=== PATIENT | female | born 1980 | race Caucasian/White ===

== ENCOUNTER → 2017-05-06 08:58 | Outpatient (CLI) | payer OTHER, SELFPAY ==
--- NOTE | 2017-05-06 09:04 | MR_ITS ---
MR angio head wo con CLINICAL INDICATION: ITS.REASON: TEMPORAL ARTERITIS SYNDROME, headache with jaw pain, arteritis ORDERING PHYSICIAN: Kavon Deleon MD PATIENT AGE: 36 years COMPARISON: MRI of the brain 04/02/2009 TECHNIQUE: 3-D [id number] images are obtained with MIP reformats and single shot MRV FINDINGS: There is a persistent small area of protrusion involving the junction of the right A1 segment of the anterior cerebral artery with the anterior communicating artery seen on both the raw data images and the 3-D reformats. This measures approximately 2 mm. While this could be due to overlap of an adjacent vessel, one cannot exclude the possibility of a small aneurysm especially in this location. Would consider a CT angiogram of the intracranial vessels for confirmation. No other abnormalities are evident. No large aneurysms, AVMs, or major intracranial occlusive process is evident. No segmental occlusive changes. No beading seen of the intracranial arteries. No evidence of arteritis of the intracranial vessels. IMPRESSION: 1. Possible small aneurysm at the junction of the right A1 segment and anterior cerebral artery. Consider CT angiogram for further evaluation. 2. Otherwise negative MRA of the brain
== END ==
PROVIDERS: Family Provider Internal Medicine Adolescent Medicine; PCP Internal Medicine Adolescent Medicine; Visit Provider Internal Medicine Adolescent Medicine
DX: M31.6 Other giant cell arteritis (principal)
CPT/HCPCS: 70544

== ENCOUNTER → 2017-05-13 09:34 | Outpatient (CLI) | payer OTHER, SELFPAY ==
--- NOTE | 2017-05-13 09:39 | CT_ITS ---
CT angio head INDICATION: Severe temporal headaches with abnormal MRI, pulsatile tinnitus, evaluate for possible future routine artery aneurysm ITS.REASON: TEMPORAL HEADACHE,PULSATILE TINNITUS BOTH EARS, ABN.MRI ORDERING PHYSICIAN: Kavon Deleon MD PATIENT AGE: 36 years COMPARISON: MRI of 05/06/2017 TECHNIQUE: Axial images are obtained following the intravenous administration 100 mL's of Isovue-370 contrast. Sagittal and coronal reformatted images are reviewed as well. FINDINGS: On the previous MRI there was a question of a aneurysm at the junction of the A1 segment and anterior communicating artery on the right. There is no evidence of anterior communicating artery aneurysm. There is some mild looping of the anterior communicating artery resulting in the abnormal findings on MRI. No aneurysm, arteriovenous malformation, for major intracranial occlusive process is evident. No enhancing lesions are evident. IMPRESSION: Negative CT angiogram of the brain. No aneurysm apparent.
--- NOTE | 2017-05-13 10:39 | HMH.ITSHM ---
HUMIRA METHOTREXTE FLOCI ACEID ;URXETINE LIN DRAKE
[2017-05-13 11:16] LABS: Anion Gap 12.2 mEq/L (5-15); Blood Urea Nitrogen 7 mg/dL (7-18); Carbon Dioxide 26 mmol/L (21.0-32.0); Chloride 100 mmol/L (98-107); Creatinine,Serum 0.53 mg/dL (0.55-1.02); Estimated Glomerular Filt Rate 131 ml/min (>60); GFR (African American) 159 ML/MIN (>60); Glucose 80 mg/dL (74-106); Potassium 4.2 mmoL/L (3.5-5.1); Sodium 134 mmol/L (136-145)
[2017-05-13 14:05] LABS: Hemoglobin A1C 5.5 % (0.0-7.0)
== END ==
PROVIDERS: Family Provider Internal Medicine Adolescent Medicine; PCP Internal Medicine Adolescent Medicine; Visit Provider Internal Medicine Adolescent Medicine
DX: R51 Headache (principal); H93.A3 Pulsatile tinnitus, bilateral; R90.89 Other abnormal findings on diagnostic imaging of central nervous system
CPT/HCPCS: 36415; 70496; 80048; 83036; Q9967

== ENCOUNTER → 2017-08-01 08:13 | Outpatient (POV) | payer OTHER, SELFPAY | PROVIDERS: Family Provider Internal Medicine Adolescent Medicine; PCP Internal Medicine Adolescent Medicine; Visit Provider Physician Assistant | DX: Z00.00 Encounter for general adult medical examination without abnormal findings (principal) ==

== ENCOUNTER → 2017-10-31 08:03 | Outpatient (POV) | payer OTHER, SELFPAY | PROVIDERS: Visit Provider Physician Assistant | DX: Z00.00 Encounter for general adult medical examination without abnormal findings (principal) ==

== ENCOUNTER → 2018-01-16 13:23 | Outpatient (CLI) | payer OTHER, SELFPAY ==
--- NOTE | 2018-01-16 13:28 | XR_ITS ---
XR foot RT min 3V HISTORY: ITS.REASON: BILAT FOOT PAIN ORDERING PHYSICIAN: Kavon Deleon MD PATIENT AGE: 37 years COMPARISON: None FINDINGS: No fracture or dislocation. No lytic or blastic change. There is normal mineralization.. The joint spaces are well-preserved. No significant degenerative/arthritic changes. No erosive changes evident. Reflection deformity of the second digit IMPRESSION: Flexion deformity of the second toe otherwise negative right foot
--- NOTE | 2018-01-16 13:28 | XR_ITS ---
XR foot LT min 3V HISTORY: ITS.REASON: BILAT FOOT PAIN ORDERING PHYSICIAN: Kavon Deleon MD PATIENT AGE: 37 years COMPARISON: None FINDINGS: No fracture or dislocation. No lytic or blastic change. There is normal mineralization.. The joint spaces are well-preserved. No significant degenerative/arthritic changes. No erosive changes evident. Mild flexion of the second toe IMPRESSION: Mild flexion of the second toe otherwise negative left foot
== END ==
PROVIDERS: PCP Internal Medicine Adolescent Medicine; Visit Provider Internal Medicine Adolescent Medicine
DX: M79.672 Pain in left foot (principal); M79.671 Pain in right foot
CPT/HCPCS: 73630

== ENCOUNTER → 2018-02-24 08:55 | Outpatient (CLI) | payer OTHER, SELFPAY ==
--- NOTE | 2018-02-24 09:01 | CT_ITS ---
CT abdomen pelvis w con CLINICAL INDICATION: ITS.REASON: ENDOMETRIOSIS, RT SIDE ABD PAIN, FECAL URGENCY ORDERING PHYSICIAN: Kavon Deleon MD PATIENT AGE: 37 years COMPARISON: None TECHNIQUE: Axial images obtained with sagittal and coronal reformats. All CT scans at the facility use one or more dose reduction, viz: automated exposure control, ma/kV adjustment per patient size (including targeted exams where dose is matched to indication, i.e. head), or iterative reconstruction technique. PROCEDURE: Oral Contrast: Redicat IV Contrast: 75 mL Isovue-370. FINDINGS: Lung bases are clear. Prior cholecystectomy. The liver, spleen, adrenal glands, pancreas, and kidneys have an unremarkable appearance. There is prior appendectomy. No intestinal obstruction or free air is evident. The uterus is somewhat bulky especially toward the right. The endometrial stripe is not well-defined. There is a 2 cm right ovarian cyst.. No pelvic abscess or cul-de-sac fluid. No focal inflammatory change. There is a tiny umbilical hernia containing fat. No acute bony anomalies IMPRESSION: 1. No acute abdominal or pelvic findings. 2. 2 cm right ovarian cyst. 3. Uterus is somewhat bulky especially along its right aspect. Endometrial stripe is not well delineated. Consider pelvic ultrasound for more thorough evaluation of the uterus.
--- NOTE | 2018-02-24 09:42 | HMH.ITSHM ---
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 []MARLIN FLORESRA
== END ==
PROVIDERS: PCP Internal Medicine Adolescent Medicine; Visit Provider Internal Medicine Adolescent Medicine
DX: N80.9 Endometriosis, unspecified (principal); R10.9 Unspecified abdominal pain; R15.2 Fecal urgency
CPT/HCPCS: 74177; Q9967

== ENCOUNTER → 2018-03-14 13:22 | Outpatient (CLI) | payer OTHER, SELFPAY ==
--- NOTE | 2018-03-14 13:27 | US_ITS ---
US transvaginal HISTORY: ITS.REASON: ENDOMETRIOSIS, RT SIDED ABDOMINAL PAIN ORDERING PHYSICIAN: Kavon Deleon MD PATIENT AGE: 37 years Comparison: 02/24/2018 FINDINGS: The uterus is retroverted and measures 7.4 x 4.5 x 4.7 cm. Combined endometrial thickness is 6 mm. The uterine fundus is prominent but no definite uterine mass evident. Nabothian cyst at 9 mm. The left ovary is 3.5 x 1.8 cm containing multiple small follicles. The right ovary is 3.4 x 2.2 cm containing small follicles the largest of which is 1 cm. No cul-de-sac fluid evident. Bilateral ovarian blood flow. IMPRESSION: 1. Retroverted uterus with some fullness in the fundal region. Nonspecific 2. Small bilateral ovarian follicles. No dominant cyst evident
== END ==
PROVIDERS: PCP Internal Medicine Adolescent Medicine; Visit Provider Internal Medicine Adolescent Medicine
DX: R10.31 Right lower quadrant pain (principal); N80.9 Endometriosis, unspecified
CPT/HCPCS: 76830

== ENCOUNTER → 2018-09-12 08:06 | Outpatient (CLI) | payer OTHER, SELFPAY ==
--- NOTE | 2018-09-12 08:11 | XR_ITS ---
XR ankle wt bearing LT min 3V HISTORY: ITS.REASON: pain ORDERING PHYSICIAN: Tova Mckeon DPM PATIENT AGE: 38 years Comparison: None FINDINGS: No fracture or dislocation. No lytic or blastic change. There is normal mineralization.. The joint spaces are well-preserved. No significant degenerative/arthritic changes. No erosive changes evident. IMPRESSION: Negative ankle, no acute finding
--- NOTE | 2018-09-12 08:11 | XR_ITS ---
XR ankle wt bearing RT min 3V HISTORY: ITS.REASON: pain ORDERING PHYSICIAN: Tova Mckeon DPM PATIENT AGE: 38 years Comparison: None FINDINGS: No fracture or dislocation. No lytic or blastic change. There is normal mineralization.. The joint spaces are well-preserved. No significant degenerative/arthritic changes. No erosive changes evident. IMPRESSION: Negative ankle, no acute finding
== END ==
PROVIDERS: PCP Internal Medicine Adolescent Medicine; Visit Provider Podiatrist
DX: M19.071 Primary osteoarthritis, right ankle and foot (principal); M19.072 Primary osteoarthritis, left ankle and foot
CPT/HCPCS: 73610

== ENCOUNTER → 2020-01-29 08:15 | Outpatient (CLI) | payer OTHER, SELFPAY ==
--- NOTE | 2020-01-29 08:24 | XR_ITS ---
PROCEDURE: XR ELBOW LT MIN 3V CLINICAL INDICATION: LT ELBOW PAIN COMPARISON: No exams were available for comparison FINDINGS: No acute fracture or dislocation. There are at least 3 calcific densities along the lateral aspect of the elbow proximal to the radial head at the level of the elbow joint consistent with loose bodies. Mild osteoarthritic changes are present at the elbow joint. No displaced fat pad. IMPRESSION: Mild osteoarthritis with loose bodies along the lateral aspect of the elbow joint. Dictated by: David Mensah MD 01/29/2020 12:38 David Mensah MD in [facility] 01/29/2020 12:38
== END ==
PROVIDERS: PCP Internal Medicine Adolescent Medicine; Visit Provider Internal Medicine Adolescent Medicine
DX: M25.522 Pain in left elbow (principal)
CPT/HCPCS: 73080

== ENCOUNTER → 2020-03-14 09:26 | Outpatient (CLI) | payer OTHER, SELFPAY ==
--- NOTE | 2020-03-14 09:31 | US_ITS ---
PROCEDURE: US TRANSVAGINAL CLINICAL INDICATION: PELVIC PAIN COMPARISON: US TRANVAG US transvaginal from 03/14/2018 FINDINGS: The uterus is retroverted measuring 8x 5 x 6 cm with a combined endometrial thickness of 5 mm. There is an area of increased echogenicity along the anterior aspect of the uterus and may be due to a scar. Nabothian cysts noted. The left ovary is 3.3 x 2.3 cm containing small follicles with blood flow noted. The right ovary is 4.7 x 3.5 cm containing a dominant cyst at 2.6 cm with a central septation. There are small follicles also in the right ovary. Blood flow is present. IMPRESSION: Retroverted uterus. 2.6 cm septated right ovarian cyst. Consider follow-up to confirm. Resolution or stability Dictated by: David Mensah MD 03/14/2020 16:00 David Mensah MD in [facility] 03/14/2020 16:00
== END ==
PROVIDERS: PCP Internal Medicine Adolescent Medicine; Visit Provider Nurse Practitioner Family
DX: R10.2 Pelvic and perineal pain (principal)
CPT/HCPCS: 76830

== ENCOUNTER → 2020-03-24 13:25 | Outpatient (CLI) | payer OTHER, SELFPAY ==
[2020-03-24 16:48] LABS: Adenovirus,PCR Not Detected (NotDetected); Bordetella Pertussis Not Detected (NotDetected); Chlamydophila Pneumoniae, PCR Not Detected (NotDetected); Coronavirus 19, PCR Not Detected (NotDetected); Coronavirus 229E Not Detected (NotDetected); Coronavirus NL63 Not Detected (NotDetected); Coronavirus OC43 Not Detected (NotDetected); Coronovirus HKU1,PCR Not Detected (NotDetected); Human Metapneumovirus Not Detected (NotDetected); Influenza A, PCR Not Detected (NotDetected); Influenza AH1, 2009 Not Detected (NotDetected); Influenza AH1, PCR Not Detected (NotDetected); Influenza AH3,PCR Not Detected (NotDetected); Influenza B, PCR Not Detected (NotDetected); Mycoplasma Pneumoniae, PCR Not Detected (NotDetected); Parainfluenza 1, PCR Not Detected (NotDetected); Parainfluenza 2, PCR Not Detected (NotDetected); Parainfluenza 3, PCR Not Detected (NotDetected); Parainfluenza 4, PCR Not Detected (NotDetected); Respiratory Syncytial Virus Not Detected (NotDetected); Rhinovirus/Enterovirus Not Detected (NotDetected)
== END ==
PROVIDERS: PCP Internal Medicine Adolescent Medicine; Visit Provider Internal Medicine Adolescent Medicine
DX: Z01.818 Encounter for other preprocedural examination (principal); Z03.818 Encounter for observation for suspected exposure to other biological agents ruled out
CPT/HCPCS: 87581; 87633; 87798

== ENCOUNTER 2020-06-06 08:00 | Outpatient (RCR) | payer OTHER, SELFPAY ==
--- NOTE | 2020-05-14 08:58 | HMH.OTOPEV ---
OT Inpatient Evaluation Rehab OT Outpatient Eval Start: 05/14/20 08:08 Freq: Status: Active Protocol: Document 05/14/20 08:44 [facility]ALL (Rec: 05/14/20 08:58 [id number] Electronically Signed By Kiana Pires OT 05/14/20 08:44 Outpatient Therapy Subjective History Subjective History Pt is a 39 year old female who reports to therapy for initial evaluation to Left elbow. Pt had scope completed on 03/27/20 to left elbow. Pt has past medical history of juvenile arthritis and Maritza -Danols Syndrome. Pt reports continued pain for the past 6 months at L elbow (dominant side). She also c/o her elbow feeling locked at times. After scope, surgeon confirmed minimal cartilage in elbow along with fraying of several ligaments. Pt reports most symptoms have improved since debridement of elbow. Pt does demonstrate with decreased strength at L elbow, but overall normal active range of motion. Pt will continue to be seen twice a week to address all deficits. Chief Complaint Pain,Weakness Symptom Type Ache,Throb,Dull Symptoms Relieved By Rest/Positioning Symptoms Aggravated By Physical Activity,Lifting Prior Functional Limitations None Current Functional Limitations Reaching,Lifting,Housework, Recreation Activity Symptom Description Constant but Variable Level of pain today (0-10) 3 Pain scale - at its best (0-10) 1 Pain scale - at its worst (0-10) 10 Shoulder/Elbow Eval Shoulder Objective Measurements Elbow Objective Measurements Elbow ROM Left Elbow Extension Active Range of Motion ( 0 degrees degrees) Elbow Flexion Active Range of Motion ( 138 degrees degrees) Elbow Pronation of Forearm Range of 90 degrees Motion (degrees) Elbow Supination of Forearm Range of 90 degrees Motion (degrees) Elbow MMT Elbow Flexion Strength Grade 4- Good- Elbow Extension Strength Grade 4- Good- Wrist/Hand Eval Wrist Manual Muscle Testing Left Forearm Supination Strength Grade 4- Good- Forearm Pronation Strength Grade 4- Good- Automatic Transmission Mechanic/Pinch Strength R
== END 2020-06-06 08:05 | disposition home or self-care (01) ==
LOC: OT 08:00
PROVIDERS: PCP Internal Medicine Adolescent Medicine; Visit Provider Internal Medicine Adolescent Medicine
DX: Q79.60 Ehlers-Danlos syndrome, unspecified (principal)
CPT/HCPCS: 97014; 97110; 97166; G0283

== ENCOUNTER → 2020-07-03 17:49 | Outpatient (CLI) | payer OTHER, SELFPAY ==
[2020-07-03 18:01] LABS: Basophils % 0.4 % (0.1-2.0); Eosinophils # 0.1 K/mm3 (0.0-0.4); Eosinophils % 0.5 % (0.1-12.0); Hematocrit 36.2 % (37.0-47.0); Lymphocytes # 1.8 K/mm3 (0.7-4.5); Lymphocytes % 18.6 % (10-50); Mean Corpuscular HGB Conc 33.1 g/dL (31.8-35.4); Mean Corpuscular Hemoglobin 32.1 pg (27.0-31.2); Mean Corpuscular Volume 96.7 fl (81-99); Mean Platelet Volume 7.4 fl (7.4-10.4); Monocytes # 0.7 K/mm3 (0.1-1.0); Monocytes % 7.4 % (1.7-9.3); Neutrophils # 7.2 K/mm3 (1.8-7.8); Platelet Count 291 K/mm3 (142-424); Red Blood Count 3.74 M/mm3 (4.20-5.40); Red Cell Distribution Width 13.1 % (11.5-17.5); White Blood Count 9.9 K/mm3 (4.8-10.8)
[2020-07-03 18:35] LABS: Erythrocyte Sedimentation Rate 14 mm/hr (0-20)
[2020-07-03 18:44] LABS: Alanine Aminotransferase 14 U/L (12-78); Albumin Level 4.8 g/dl (3.5-5.0); Albumin/Globulin Ratio 1.7 (1.1-1.8); Alkaline Phosphatase 43 U/L (38-126); Aspartate Amino Transferase 24 U/L (14-36); Bilirubin,Total 0.2 mg/dl (0.2-1.3); Blood Urea Nitrogen 10 mg/dl (7-17); Calcium 9.9 mg/dl (8.4-10.2); Carbon Dioxide 26 mmol/L (22.0-30.0); Chloride 104 mmol/L (98-107); Estimated Glomerular Filt Rate 94 ml/min (>60); GFR (African American) 113 ML/MIN (>60); Globulin 2.8 g/dL (1.3-3.2); Glucose 94 mg/dl (74-100); Sodium 138 mmol/L (136-145); Total Protein,Serum 7.6 g/dl (6.3-8.2)
[2020-07-03 18:55] LABS: C-Reactive Protein < 0.3 mg/L (0-4)
[2020-07-03 19:01] LABS: 25-OH Vitamin D, Total 17.3 ng/mL (30-100)
[2020-07-03 19:34] LABS: Vitamin B12 737 pg/mL (239-931)
== END ==
PROVIDERS: Visit Provider Internal Medicine Adolescent Medicine
DX: M05.79 Rheumatoid arthritis with rheumatoid factor of multiple sites without organ or systems involvement (principal); R20.2 Paresthesia of skin; E55.9 Vitamin D deficiency, unspecified
CPT/HCPCS: 36415; 80053; 82306; 82607; 85025; 85651; 86140

== ENCOUNTER → 2020-07-04 14:00 | Outpatient (CLI) | payer OTHER, SELFPAY ==
--- NOTE | 2020-07-04 14:03 | US_ITS ---
PROCEDURE: US TRANSVAGINAL CLINICAL INDICATION: PELVIC PAIN COMPARISON: US US TRANSVAGINAL from 03/14/2020 FINDINGS: The uterus is retroverted. Nabothian cysts are present. There are 2 small cysts within the uterus at 5 mm and 4 mm. A 5 mm cyst is anterior to the mid aspect Of the endometrial stripe in the 4 mm cyst is in the lower uterine segment region. The previously noted 2.6 cm septated ovarian cyst on the right has resolved. There are small bilateral ovarian follicles UTERUS: 8cm x 5cmx 4cm with a combined endometrial thickness of 6.1mm LEFT OVARY: [id number] with a volume of 15.7ml. RIGHT OVARY: [id number] with a volume of 8.7ml. IMPRESSION: Retroflexed uterus with 2 small cyst within the uterus Resolved septated right ovarian cyst Dictated by: David Mensah MD 07/04/2020 17:06 David Mensah MD in [facility] 07/04/2020 17:06
== END ==
PROVIDERS: PCP Internal Medicine Adolescent Medicine; Visit Provider Nurse Practitioner Family
DX: R10.2 Pelvic and perineal pain (principal)
CPT/HCPCS: 76830

== ENCOUNTER 2020-07-14 06:52 | Observation (INO) | payer OTHER, SELFPAY ==
[2020-07-14] VITALS (37 sets, daily range): BP systolic 87–135; BP diastolic 60–85; PULSE 75–120; RESP 12–18; TEMP 6.1–43; O2SAT 96–100; BMI 19.2; BMI 20.5
--- NOTE | 2020-07-14 06:55 | ECG_ITS ---
APPROVED REPORT Exam: Resting ECG HR:93 bpm ECG Measurements Heart Rate 93 AXES VT 142 P 71 QRSd 70 QRS 59 QT 344 T 54 QTc 427 Conclusion Normal sinus rhythm Normal ECG Electronically signed by : Kavon Deleon, 07/14/2020 20:53:51
--- NOTE | 2020-07-14 07:03 | CT_ITS ---
PROCEDURE: CT CERVICAL SPINE WO CON CLINICAL INDICATION: syncope with fall COMPARISON: No exams were available for comparison TECHNIQUE: Axial images obtained with sagittal and coronal reformats. All CT scans at the facility use one or more dose reduction, viz: automated exposure control, ma/kV adjustment per patient size (including targeted exams where dose is matched to indication, i.e. head), or iterative reconstruction technique. Axial spiral CT scanning performed of the cervical spine beginning at the base of the skull and continuing to the upper T-spine. 3-D multiplanar reconstruction with 3-D manipulation of volumetric data set in image rendering was completed by the radiologist and/or technologist with the supervision of the radiologist on independent workstation. FINDINGS: Reversal of the cervical spine curvature is noted which may be secondary to muscle spasm. The vertebral body heights and alignment are otherwise unremarkable. The facet joint alignment is within normal limits. No acute fractures or traumatic subluxation. The prevertebral soft tissues and visualized lung apices are clear. IMPRESSION: No acute fractures or traumatic subluxation. Dictated by: Celeste Logan 07/14/2020 09:01 Celeste Logan in [facility] 07/14/2020 09:01
--- NOTE | 2020-07-14 07:03 | XR_ITS ---
PROCEDURE: XR CHEST PORTABLE CLINICAL HISTORY: syncope with fall COMPARISON: CR CXR CHEST(2 VIEWS-NOT PORTABLE) from 08/31/2012 CR CXR CHEST(2 VIEWS-NOT PORTABLE) from 11/21/2012 CR CXR CHEST(2 VIEWS-NOT PORTABLE) from 07/31/[address] CHEST W/WO CONTRAST from 08/13/2015 FINDINGS: The cardiomediastinal silhouette and pulmonary vascularity are within normal limits. The lungs are clear without infiltrates, suspicious nodules, or pleural effusions. No acute bony abnormalities. IMPRESSION: No acute findings. Dictated by: Celeste Logan 07/14/2020 08:28 Celeste Logan in [facility] 07/14/2020 08:28
--- NOTE | 2020-07-14 07:03 | CT_ITS ---
PROCEDURE: CT HEAD/BRAIN WO CON CLINICAL INDICATION: syncope with fall COMPARISON: May 13, 2017 TECHNIQUE: Axial images obtained. All CT scans at the facility use one or more dose reduction, viz: automated exposure control, ma/kV adjustment per patient size (including targeted exams where dose is matched to indication, i.e. head), or iterative reconstruction technique. FINDINGS: No intra or extra-axial hemorrhage, space occupying lesion or acute infarct. The ventricles are normal in size, shape and symmetry. The hauser-white matter differentiation is within normal limits. No midline shift or mass effect. Brain parenchymal volume is appropriate for the age of the patient. The osseous structures are unremarkable. Visualized paranasal sinuses and mastoid air cells are clear. IMPRESSION: No acute intracranial finding Dictated by: Celeste Logan 07/14/2020 08:57 Celeste Logan in [facility] 07/14/2020 08:57
--- NOTE | 2020-07-14 07:03 | XR_ITS ---
PROCEDURE: XR PELVIS 1-2V CLINICAL INDICATION: syncope with fall COMPARISON: No exams were available for comparison TECHNIQUE: XR Pelvis AP View FINDINGS: No fracture or dislocation is evident. No significant degenerative change. No lytic or blastic lesions. Contrast is noted in the bladder, likely secondary to recent IV contrast administration. IMPRESSION: No acute findings. Dictated by: Celeste Logan 07/14/2020 08:27 Celeste Logan in [facility] 07/14/2020 08:27
--- NOTE | 2020-07-14 07:07 | CT_ITS ---
PROCEDURE: CT ABDOMEN PELVIS W CON CLINICAL INDICATION: abd pain COMPARISON: CT ABDPELW CT abdomen pelvis w con from 02/24/2018 US US TRANSVAGINAL from 07/04/2020 TECHNIQUE: IV Contrast: 75ML Isovue 370 Oral Contrast None Axial images obtained with sagittal and coronal reformats. All CT scans at the facility use one or more dose reduction, viz: automated exposure control, ma/kV adjustment per patient size (including targeted exams where dose is matched to indication, i.e. head), or iterative reconstruction technique. FINDINGS: LOWER THORAX: Minor bibasilar atelectasis noted. Calcified granuloma in the left lower lobe. ABDOMEN & PELVIS: The liver is unremarkable. The gallbladder is surgically absent. No intra or extrahepatic biliary dilation. The pancreas, kidneys, adrenal glands and spleen are unremarkable. Few minor calcifications noted in the spleen, likely secondary to prior granulomatous disease. No evidence of hydronephrosis or hydroureter. The large and small bowel loops are under distended and demonstrates no evidence of focal wall thickening, obstruction or adjacent inflammatory changes. No significant retroperitoneal or mesenteric lymphadenopathy. The visualized abdominal aorta and its branches are unremarkable. There is evidence of hemoperitoneum. The uterus demonstrates heterogeneous density appears mildly enlarged. There is increased vasculature in the left adnexa adjacent to the left ovary. There is apparent contrast extravasation in the left adnexa adjacent to the left ovary. The right adnexa and the right appear ovary appears unremarkable within the limitations of the study. Hyperdense fluid is noted within the pelvis. IMPRESSION: Solid and cystic left adnexal lesion, demonstrates increased adjacent tortuous vessels with possible contrast extravasation. Hyperdense fluid noted in the abdomen and pelvis. Active hemorrhage in the left adnexa secondary to ovarian cystic mass like lesion versus ectopic is suspected. Correlation with the beta hCG is recommended. Moderate hemoperitoneum. Status post cholecystectomy. Dictated by: Celeste Logan 07/14/2020 08:52 Celeste Logan in [facility] 07/14/2020 08:52
[2020-07-14 07:23] LABS: Urine Pregnancy, HCG Qual. Negative (Negative)
--- NOTE | 2020-07-14 07:28 | HMH.EDNVD ---
ED Disposition Clinical Impression: Intra abdominal hemorrhage, Pelvic hematoma, Hemoperitoneum Disposition: Admitted As Inpatient Condition on Discharge: Serious Instructions: DI for Syncope in Adults (Fainting), DI for Syncope in Children (Fainting) Referrals: Kavon Deleon MD [Primary Care Provider] - - Critical Care Critical Care Time: Yes Attestation: On 07/14/20, the high probability of a clinically significant, sudden or life threatening deterioration of the following system(s) required my full and direct attention, intervention and personal management. The time I documented below is in addition to time spent performing reported procedures but includes the following listed in this critical care notation. Total Critical Care Time: 60 Vital system(s) involved:: Shock (Hemorrhage) My critical care processes included: Assessment & monitoring of V/S, Initial and Re-exams, Data Review/Interpretation, Medication Orders and management, Documentation Medical Decision Making - Medical Records Medical records reviewed: Yes: I reviewed the patient's medical records. - Steven Inquiry Pt receiving controlled substance: No Vital Signs: 07/14/20 06:52 07/14/20 07:12 07/14/20 07:30 Temperature 98.3 F Temperature Source Oral Pulse Rate 110 H 103 H Pulse Rate [Right Radial] 101 H Respiratory Rate 14 Blood Pressure 135/75 101/75 L Blood Pressure [Right Arm] 115/78 Blood Pressure Mean 84 Blood Pressure Mean [Right Arm] 90 Blood Pressure Source [Right Arm] Automatic Cuff Blood Pressure Position [Right Arm] Supine 02 Sat by Pulse Oximetry 100 100 100 Oxygen Delivery Method Room Air 07/14/20 08:00 07/14/20 08:05 Temperature Temperature Source Pulse Rate 116 H 116 H Pulse Rate [Right Radial] Respiratory Rate Blood Pressure 122/85 120/64 Blood Pressure [Right Arm] Blood Pressure Mean 92 82 Blood Pressure Mean [Right Arm] Blood Pressure Source [Right Arm] Blood Pressure Position [Right Arm] 02 Sat by Pulse Oximetry 100 100 Oxygen Delivery Method - Lab Data Lab results reviewed: Yes: I reviewed the patient's lab results. Lab Results 07/14/20 06:40: WBC 21.4 H*, RBC 3.56 L, Hgb 11.8 L, Hct 34.3 L, MCV 96.4, MCH 33.1 H, MCHC 34.3, RDW 13.2, Plt Count 280, MPV 8.3, Neut % (Auto) 81.9 H, Lymph % (Auto) 12.3, Jackson % (Auto) 5.2, Eos % (Auto) 0.4, Baso % (Auto) 0.3, Neut # (Auto) 17.5 H, Lymph # (Auto) 2.6, Jackson # (Auto) 1.1 H, Eos # (Auto) 0.1, Baso # (Auto) 0.1, Total Counted 100, Neutrophils % (Manual) 80 H, Lymphocytes % (Manual) 14, Monocytes % (Manual) 6, Platelet Estimate Normal, RBC Morphology Normal 07/14/20 06:40: Sodium 135 L, Potassium 3.9, Chloride 108 H, Carbon Dioxide 20 L, Anion Gap 10.9, BUN 15, Creatinine 0.70, Estimated Creat Clear 87, Estimated GFR 94, Est GFR ( Amer) 113, Glucose 135 H, Calcium 8.8, Total Bilirubin 0.4, Direct Bilirubin 0.1, Conjugated Bilirubin 0.0, Indirect Bilirubin 0.3, Unconjugated Bilirubin 0.3, AST 23, ALT 12, Alkaline Phosphatase 37 L, Troponin I < 0.01, Total Protein 6.4, Albumin 4.0, Amylase 80, Lipase 168, TSH 3.44, Thyroxine (T4) 6.6 07/14/20 06:40: Serum HCG, Qual Negative 07/14/20 06:58: Lactate 1.5 07/14/20 07:13: Urine Color Yellow, Urine Appearance Clear, Urine pH 6.0, Ur Specific [place] 1.025, Urine Protein Negative, Urine Glucose (UA) Negative, Urine Ketones Negative, Urine Blood Negative, Urine Nitrate Negative, Urine Bilirubin Negative, Urine Urobilinogen 0.2, Ur Leukocyte Esterase Negative, Urine RBC None, Urine WBC 3-5, Ur Squamous Epith Cells 3-5, Urine Bacteria None 07/14/20 07:13: Urine HCG, Qual Negative Result diagrams: 07/14/20 06:40 07/14/20 06:40 Orders (Tests/Meds): ED MEDICATIONS Generic Name Dose Route Start Last Admin Trade Name Freq PRN Reason Stop Dose Admin Sodium Chloride 1,000 mls @ 999 mls/hr 07/14/20 07:30 07/14/20 07:18 Sod Chlor 0.9% 1000ml Bag IV 07/14/20 08:30 999 mls/hr .[id number]
[2020-07-14 07:33] LABS: Lactic Acid 1.5 mmol/L (0.7-2.1)
[2020-07-14 07:35] LABS: Microscopic, Urine URINE MICROSCOPIC (MICROSCOPIC)
[2020-07-14 07:44] LABS: Appearance,Urine CLEAR (Clear); Bilirubin,Urine Negative (Negative); Blood, Urine Negative (Negative); Color,Urine YELLOW (Yellow); Glucose,Urine (UA) Negative (Negative); Ketones,Urine Negative (Negative); Leukocyte Esterase,Urine Negative (Negative); Nitrate,Urine Negative (Negative); Protein,Urine Negative (Negative); Specific Gravity, Urine 1.025 (1.005-1.030); Urobilinogen,Urine 0.2 EU/dl (0.2)
[2020-07-14 07:45] LABS: Alanine Aminotransferase 12 U/L (12-78); Alkaline Phosphatase 37 U/L (38-126); Amylase 80 U/L (30-110); Anion Gap 10.9 mEq/L (5-15); Aspartate Amino Transferase 23 U/L (14-36); Bilirubin,Direct 0.1 mg/dl (0.0-0.4); Bilirubin,Indirect 0.3 mg/dL (0.0-0.9); Bilirubin,Total 0.4 mg/dl (0.2-1.3); Bilirubin,Unconjugated 0.3 mg/dL (0.0-1.1); Blood Urea Nitrogen 15 mg/dl (7-17); Calcium 8.8 mg/dl (8.4-10.2); Carbon Dioxide 20 mmol/L (22.0-30.0); Chloride 108 mmol/L (98-107); Creatinine Clearance Estimated 87 mL/min (50-200); Estimated Glomerular Filt Rate 94 ml/min (>60); GFR (African American) 113 ML/MIN (>60); Glucose 135 mg/dl (74-100); Lipase 168 U/L (23-300); Potassium 3.9 mmoL/L (3.5-5.1); Sodium 135 mmol/L (136-145); Total Protein,Serum 6.4 g/dl (6.3-8.2)
[2020-07-14 07:46] LABS: Basophils # 0.1 K/mm3 (0-0.2); Basophils % 0.3 % (0.1-2.0); Eosinophils # 0.1 K/mm3 (0.0-0.4); Eosinophils % 0.4 % (0.1-12.0); Hematocrit 34.3 % (37.0-47.0); Hemoglobin 11.8 g/dL (12.2-16.2); Lymphocytes # 2.6 K/mm3 (0.7-4.5); Lymphocytes % 12.3 % (10-50); Mean Corpuscular HGB Conc 34.3 g/dL (31.8-35.4); Mean Corpuscular Hemoglobin 33.1 pg (27.0-31.2); Mean Corpuscular Volume 96.4 fl (81-99); Mean Platelet Volume 8.3 fl (7.4-10.4); Monocytes # 1.1 K/mm3 (0.1-1.0); Monocytes % 5.2 % (1.7-9.3); Neutrophils # 17.5 K/mm3 (1.8-7.8); Neutrophils % 81.9 % (37.0-80.0); Platelet Count 280 K/mm3 (142-424); Red Blood Count 3.56 M/mm3 (4.20-5.40); Red Cell Distribution Width 13.2 % (11.5-17.5); White Blood Count 21.4 K/mm3 (4.8-10.8)
[2020-07-14 07:47] LABS: MANUAL DIFFERENTIAL MANUAL DIFFERENTIAL (MANUAL DIFF)
[2020-07-14 08:01] LABS: Troponin I < 0.01 ng/ml (0.00-0.034)
[2020-07-14 08:04] LABS: T4 (Thyroxine) 6.6 ug/dl (5.53-11.0)
[2020-07-14 08:08] LABS: HCG Qualitative, Serum Negative (Negative)
[2020-07-14 08:11] LABS: Lymphocytes % 14 % (10-50); Monocytes % 6 % (2-9); Neutrophils % 80 % (42-76); Platelet Estimate Normal; RBC Morphology Normal; Total Cells Counted 100
[2020-07-14 08:16] LABS: Thyroid Stimulating Hormone 3.44 uIU/mL (0.465-4.68)
--- NOTE | 2020-07-14 08:21 | PC.NURSE ---
calling [facility] at this time, notified blood bank we needed emergent blood released. Blood consent being signed at this time
--- NOTE | 2020-07-14 08:22 | PC.NURSE ---
Kevin calling [facility] at this time
--- NOTE | 2020-07-14 08:25 | PC.NURSE ---
pt vital signs 115/71, hr109, rr18
--- NOTE | 2020-07-14 08:25 | PC.NURSE ---
uncross match blood started
--- NOTE | 2020-07-14 08:25 | PC.NURSE ---
Dr. Navarro speaking with Dr. Lucas [facility]
--- NOTE | 2020-07-14 08:27 | PC.NURSE ---
Lab arrived with blood
--- NOTE | 2020-07-14 08:37 | PC.NURSE ---
called and cancelled helicopter at this time. patient had decided to stay here after speaking with Dr. Petersen. Pulled [address] Petersen
--- NOTE | 2020-07-14 08:41 | HMH.ANESCL ---
[facility] Anesthesia Checklist - Patient Identification Patient Identification: Arm Band - Structural Data Admitted From: Home Planned Operative Procedure/s: R. hemorrhagic ovarian cyst removal - NPO Status Verified Time NPO: 00:00 - Airway Assessment C-Spine Mobility Assessed: Yes TMJ Mobility Assessed: Yes Dentition: Good Dentition - Neurological Assessment Level of Consciousness: Awake, Alert Hx Seizures: No Numbness or tingling in extremities: No - Anesthesia Plan Anesthesia Risk discussed: Yes Anesthesia Plan: Verified ASA Class: II Anesthesia Type: General [facility] History I have reviewed the patient's past medical history: Yes Medical History: Reports:: Migraine *Have you ever received a pneumonia vaccine?: No *Have you received a flu vaccine this season?: No Other Medical History: Reports: Arthritis (Rheumatoid ), Sinus Problems, Other (Ehler's Danlos) Anesthesia experience/problems:: None Laterality Cases: Left: Arthroscopy Hip, Arthroscopy Shoulder (L elbow ) Other Surgeries: Yes: Cholecystectomy, , Dilation and Curettage (w ablation) Amputation: No Fractures: Yes - *Social History Smoking Status: Never smoker Alcohol Intake: never Substance Use Type: denies use *Occupational Status:: employed *Travel in the last 8 weeks: Inside the [place] Family Hx:: Diabetes (father )
--- NOTE | 2020-07-14 08:55 | PC.NURSE ---
transferred to or
--- NOTE | 2020-07-14 09:00 | PC.NURSE ---
PT sent with blood transfusing and second bag of blood sent with pt to OR. OR nurse states that the blood is present with them. Pt denied any symptoms prior to DC from ER.
[2020-07-14 09:19] LABS: Coronavirus 19 IgG Antibody Positive (Negative); Coronavirus 19 IgM Antibody Negative (Negative)
--- NOTE | 2020-07-14 10:20 | HMH.OPNOTE ---
Date of procedure: 07/14/20 Pre-op Diagnosis:: Hemorrhagic ovarian cyst, hemoperitoneum Post-op Diagnosis:: Hemorrhagic left ovarian cyst, hemoperitoneum Procedure performed:: Laparoscopic ovarian cystectomy drainage of hemoperitoneum Surgeon:: Chavez Petersen MD GREEN CHAIN WORKER:: Tulio Baird Anesthesia: GETA Estimated blood loss (mL): 100 Clinical Note:: She is a 39-year-old 4 para 2 aborta 2 who woke up in the middle the night with some lower abdominal pain. She then passed out early in the morning and came to the ER. CT showed that she likely had a hemoperitoneum with a possible ruptured ovarian cyst. As result of that she was taken to the operating room emergently for a diagnostic laparoscopy. The risks and benefits of surgery were discussed with the patient and her prior to surgery. Operative findings:: She had approximately 1200 cc of blood in the pelvis. There was possibly a little more because this was what was recovered with the suction paddle dyeing machine operator. There was still some blood up around the liver and stomach. I suspect she had a total loss of about 1500 cc. The right ovary and uterus appeared normal. The left ovary had a 3 cm oozing hemorrhagic cyst. It was still actively oozing when we performed the laparoscopy. The upper abdomen and the rest the pelvis appeared normal. Operative note:: She was taken the operating room where general anesthesia was found be adequate. She was prepped and draped in normal sterile fashion in the semilithotomy position in [facility]. A weighted speculum was placed in the vagina and the anterior lip of the cervix was grasped with a tenaculum. I then dilated the cervix to approximately 4 mm. I inserted a Leeann uterine manipulator and insufflated the balloon. I injected 10 cc of 0.5% ropivacaine around the umbilicus and made a small incision within the umbilicus. A Veress needle was then inserted into the abdominal cavity. The abdominal cavity was then insufflated with carbon oxide gas to a pressure of 20 mmHg. I then inserted the 5 mm trocar under direct vision. I injected through and through the pubic hairline, made a small incision here and then inserted an 11 mm trocar under direct vision. A 5 mm trocar was inserted in a similar fashion the left lower quadrant after going lateral to the inferior epigastric arteries. I then suction irrigated 1200 cc of blood from the pelvis. This was followed by grasping the left ovary and using harmonic scalpel I was able to remove the left ovarian hemorrhagic cyst in its entirety. Then using harmonic scalpel on coagulation mode I was able to coagulate around the edges of the open area on the left ovary. We then rinsed the pelvis well with copious saline and then wrapped the left ovary and Surgicel. Once again hemostasis was assured. I then injected approximately 30 cc of 0.5% ropivacaine into the pelvis. The gas was letter to the abdomen and once again hemostasis was assured. I then remove the secondary trochars and the gas was let out of the abdomen once again. The primary trocar and camera moved together. 11 mm trocar site was closed deeply with [id number] 2-0 Vicryl suture followed by running subcuticular 4-0 Monocryl suture. The 5 mm trocar sites were closed with interrupted subcuticular 4-0 Monocryl suture. Sterile dressings were applied. She tolerated seizure well and was taken to the recovery room in excellent condition. All sponge, instrument and needle counts were correct. The estimated blood loss intraoperatively was less than 100 cc. Preoperatively it was close to 1500 cc. Condition: stable Disposition: PACU Specimens:: Left ovarian cyst Complications:: None
--- NOTE | 2020-07-14 10:32 | P.PN_ITS ---
[facility] Anesthesia Record Part I Intake, IV Amount: 2,000 Estimated blood loss (mL): 1,200 Urine output (mL): 500 Blood Pressure: 114/67 SaO2: 99 Pulse Rate: 107 Respiratory Rate: 12 Temperature: 97.8 F Patient is:: Awake, Stable Stable to PACU at:: 10:25
[2020-07-14 11:15] LABS: Adenovirus,PCR Not Detected (NotDetected); Bordetella Pertussis Not Detected (NotDetected); Chlamydophila Pneumoniae, PCR Not Detected (NotDetected); Coronavirus 19, PCR Not Detected (NotDetected); Coronavirus 229E Not Detected (NotDetected); Coronavirus NL63 Not Detected (NotDetected); Coronavirus OC43 Not Detected (NotDetected); Coronovirus HKU1,PCR Not Detected (NotDetected); Human Metapneumovirus Not Detected (NotDetected); Influenza A, PCR Not Detected (NotDetected); Influenza AH1, 2009 Not Detected (NotDetected); Influenza AH1, PCR Not Detected (NotDetected); Influenza AH3,PCR Not Detected (NotDetected); Influenza B, PCR Not Detected (NotDetected); Mycoplasma Pneumoniae, PCR Not Detected (NotDetected); Parainfluenza 1, PCR Not Detected (NotDetected); Parainfluenza 2, PCR Not Detected (NotDetected); Parainfluenza 3, PCR Not Detected (NotDetected); Parainfluenza 4, PCR Not Detected (NotDetected); Respiratory Syncytial Virus Not Detected (NotDetected); Rhinovirus/Enterovirus Not Detected (NotDetected)
[2020-07-14 11:17] LABS: Hematocrit 32.7 % (37.0-47.0)
--- NOTE | 2020-07-14 12:46 | HMH.PHAVTE ---
[facility] Pharmacy VTE Monitoring - Patient Demographics Admission date: 07/14/20 Report Date: 07/14/20 Time: 12:46 Allergies/Adverse Reactions: Patient Allergies Estrogens [ESTROGENS] Allergy (Unknown, Verified 09/05/18 08:13) Height: 1.57 m Weight: 50.802 kg Patient Problems: Current Active Problems Intra abdominal hemorrhage (Acute) Pelvic hematoma (Acute) Hemoperitoneum (Acute) - VTE Risk Labs: VTE Related Lab Results Hgb 11.0 g/dL (12.2-16.2) L 07/14/20 11:05 Hct 32.7 % (37.0-47.0) L 07/14/20 11:05 Plt Count 280 K/mm3 (142-424) 07/14/20 06:40 BUN 15 mg/dl (7-17) 07/14/20 06:40 Creatinine 0.70 mg/dl (0.52-1.04) 07/14/20 06:40 Estimated Creat Clear 87 mL/min (50-200) 07/14/20 06:40 Clinical Trial Participant: No - Prophylaxis VTE Prophylaxis Ordered?: Yes Types of VTE Prophylaxis: TEDS Knee High
--- NOTE | 2020-07-14 13:02 | HMH.PHAINT ---
home medication list verified using list from [facility] and [facility] office
--- NOTE | 2020-07-14 13:15 | PC.NURSE ---
PT ASSESSED AT THIS TIME. BILATERAL LUNG SOUNDS CLEAR. NO EDEMA NOTED. BOWEL SOUNDS HYPOACTIVE. SKIN PALE IN COLOR. NO VAGINAL BLEEDING. X3 LAP SITES WITH TELFA/ TEGADERM WITH STERI STRIPS UNDERNEATH. LAP SITE AT UMBILICUS INTACT BUT SEROUS DRAINAGE NOTED. PT RATES PAIN 3/10 ON VERBAL SCALE STATING CRAMPING PAIN. DENIES ANY NEEDS. WILL CONTINUE TO OBSERVE.
--- NOTE | 2020-07-14 13:22 | PC.NURSE ---
Addendum entered by Adelita Solorzano RN 07/14/20 13:23: NOTE HAPPENED AT 1300 Original Note: PT ARRIVED TO 280 AT THIS TIME VIA STRETCHER.
[2020-07-14 16:09] LABS: Hematocrit 31.3 % (37.0-47.0); Hemoglobin 10.9 g/dL (12.2-16.2)
--- NOTE | 2020-07-14 19:12 | PC.NURSE ---
report given to Kathy Bacon RN.
--- NOTE | 2020-07-14 22:00 | PC.NURSE ---
DURING PT ROUNDING, PATIENT STATED THAT SHE HAD A H/A AND HER PAIN WAS 3/10. MEDICATION OFFERED PER MAR AND PT AGREEABLE TO TAKE TYLENOL PO. WILL MEDICATE PER JUN.
--- NOTE | 2020-07-14 23:30 | PC.NURSE ---
CALLED AND VERIFIED WITH DR. HOLLIS THAT PT SHOULD NOT HAVE POST OP ABX. DR. HOLLIS CONFIRMED THAT SHE SHOULD NOT SINCE HER SURGERY WAS LAPAROSCOPIC.
[2020-07-15] VITALS: BP 97/54; PULSE 79; RESP 16; TEMP 37; O2SAT 98
[2020-07-15 04:00] VITALS: BP 106/58; PULSE 74; RESP 16; TEMP 37.3; O2SAT 97
--- NOTE | 2020-07-15 04:10 | PC.NURSE ---
patient has done well this shift. no acute changes. pain has been managed with prn pain medication. mylicon given for gas pain. lungs remain ctab and bowels are normoactive x4. she is a&o x4. no changes to lap site dressings this shift. she has been able to rest comfortably. tolerating diet well.
--- NOTE | 2020-07-15 05:15 | PC.NURSE ---
iv saline locked at this time and brenner xiomy'd. patient tolerated well and ambulated with standby assist to the restroom.
--- NOTE | 2020-07-15 06:12 | PC.NURSE ---
lab at bedside at this time.
[2020-07-15 06:55] LABS: Basophils % 0.1 % (0.1-2.0); Eosinophils % 0.1 % (0.1-12.0); Hematocrit 26.8 % (37.0-47.0); Lymphocytes # 1.1 K/mm3 (0.7-4.5); Lymphocytes % 7.7 % (10-50); Mean Corpuscular HGB Conc 34.2 g/dL (31.8-35.4); Mean Corpuscular Hemoglobin 30.6 pg (27.0-31.2); Mean Corpuscular Volume 89.4 fl (81-99); Mean Platelet Volume 7.4 fl (7.4-10.4); Monocytes % 6.6 % (1.7-9.3); Neutrophils # 12.8 K/mm3 (1.8-7.8); Neutrophils % 85.6 % (37.0-80.0); Platelet Count 140 K/mm3 (142-424); Red Cell Distribution Width 16.5 % (11.5-17.5); White Blood Count 14.9 K/mm3 (4.8-10.8)
[2020-07-15 06:59] LABS: Anion Gap 5.4 mEq/L (5-15); Blood Urea Nitrogen 4 mg/dl (7-17); Carbon Dioxide 22 mmol/L (22.0-30.0); Chloride 112 mmol/L (98-107); Creatinine Clearance Estimated 102 mL/min (50-200); Estimated Glomerular Filt Rate 112 ml/min (>60); GFR (African American) 135 ML/MIN (>60); Glucose 96 mg/dl (74-100); Hemoglobin 9.2 g/dL (12.2-16.2); MANUAL DIFFERENTIAL MANUAL DIFFERENTIAL (MANUAL DIFF); Potassium 3.4 mmoL/L (3.5-5.1); Sodium 136 mmol/L (136-145)
[2020-07-15 07:03] LABS: Calcium 7.7 mg/dl (8.4-10.2)
--- NOTE | 2020-07-15 07:05 | PC.NURSE ---
report given to jessica mitchell rn
--- NOTE | 2020-07-15 07:10 | PC.NURSE ---
report received from raul petersen rn
[2020-07-15 08:00] VITALS: BP 111/60; PULSE 90; RESP 20; TEMP 37.2; O2SAT 99
--- NOTE | 2020-07-15 08:00 | PC.NURSE ---
Assessment done at this time. Reports right upper quad pain 5/10, but denies need for any pain meds. Walking stand by assist well. Voiding well after brenner removal. lungs cta and bowel sounds hypoactive. 3 lap sites noted serosang drainage noted on two dressing. small amount of vaginal bleeding. denies dizziness, numbness and tingling. no needs at this time.
--- NOTE | 2020-07-15 08:37 | HMH.HP ---
*Admission Date: 07/14/20 *Chief complaint: Internal bleeding, syncope *History of present illness: She is 39-year-old lady who complains of lower abdominal pain. She started having severe pain in the middle of the night and then came into the ER first thing this morning. She had an episode of syncope and came into the ER. It was discovered that she has likely had a bleeding cyst from the ovary. She received 2 units of blood and her blood pressure has stabilized. She is admitted for laparoscopy and control of bleeding cyst. [facility] History I have reviewed the patient's past medical history: Yes Medical History: Reports:: Migraine Denies:: Seizures *Have you ever received a pneumonia vaccine?: No *Have you received a flu vaccine this season?: Yes Other Medical History: Reports: Arthritis (Rheumatoid ), Sinus Problems, Other (Ehler's Danlos) Anesthesia experience/problems:: None Laterality Cases: Left: Arthroscopy Hip, Arthroscopy Shoulder Other Surgeries: Yes: Cholecystectomy, , Dilation and Curettage (w ablation) Amputation: No Fractures: Yes - *Social History Last grade of school completed: Advanced degree Smoking Status: Never smoker Alcohol Intake: never Substance Use Type: denies use *Occupational Status:: employed Housing: house Household Members: spouse, children *Travel in the last 8 weeks: None Family Hx:: Diabetes (father ) Review of Systems - Review of Systems Review of systems:: pertinent systems reviewed and negative unless documented below - *Neurologic Denies headache(s), Denies seizure-like activity Meds Home Medications Medication Instructions Recorded Confirmed Type adalimumab 40 mg/0.4 mL 40 mg SQ [id number] 09/05/18 07/14/20 History subcutaneous syringe kit erenumab-aooe 70 mg/mL 140 mg SQ MONTHLY 09/05/18 07/14/20 History subcutaneous auto-injector fexofenadine 180 mg tablet 180 mg PO DAILY 09/05/18 07/14/20 History magnesium oxide 400 mg PO DAILY 09/05/18 07/14/20 History meloxicam 15 mg tablet 15 mg PO DAILYP PRN #30 tab 09/05/18 07/14/20 History Gabapentin [Gabapentin 100mg Cap] 100 mg PO HSP PRN 07/14/20 07/14/20 History Tofacitinib Citrate [Xeljanz Xr] 11 mg PO DAILY 07/14/20 07/14/20 History Ubrogepant [Ubrelvy] 100 mg PO NEEDED PRN 07/14/20 07/14/20 History predniSONE [Deltasone 10mg 10 mg PO DAILY 07/14/20 07/14/20 History tablet] Allergies Allergy/AdvReac Type Severity Reaction Status Date / Time Estrogens [ESTROGENS] Allergy Unknown Verified 09/05/18 08:13 Exam Vital signs and Labs for Last 24 Hours: Temp Pulse Resp BP Pulse Ox 99.0 F 90 20 111/60 99 07/15/20 08:00 07/15/20 08:00 07/15/20 08:00 07/15/20 08:00 07/15/20 08:00 Laboratory Results - last 24 hr 07/14/20 06:40: Blood Type Confirm A Positive 07/14/20 06:40: SARS-CoV-2 IgG Ab (Rapid) Positive A, SARS-CoV-2 IgM Ab (Rapid) Negative 07/14/20 08:15: Blood Type A Positive, Antibody Screen Negative, Crossmatch (AHG) See Detail 07/14/20 10:38: Chlamy pneumoniae PCR Not detected, Adenovirus (PCR) Not detected, B. pertussis DNA (PCR) Not detected, Coronavirus OC43 (PCR) Not detected, Coronavirus HKU1 (PCR) Not detected, Coronavirus 229E (PCR) Not detected, SARS-CoV-2 (PCR) Not detected, Coronavirus NL63 (PCR) Not detected, Human Metapneumovir PCR Not detected, Influenza A (H1) PCR Not detected, Influ A (H1N1/09) PCR Not detected, Influenza A (H3) PCR Not detected, Influenza Type A (PCR) Not detected, Influenza Type B (PCR) Not detected, M. pneumoniae (PCR) Not detected, Parainfluenza 1 (PCR) Not detected, Parainfluenza 2 (PCR) Not detected, Parainfluenza 3 (PCR) Not detected, Parainfluenza 4 (PCR) Not detected, RSV (PCR) Not detected, Entero/Rhino (PCR) Not detected 07/14/20 11:05: Hgb 11.0 L, Hct 32.7 L 07/14/20 15:50: Hgb 10.9 L, Hct 31.3 L 07/15/20 06:22: WBC 14.9 H D, RBC 3.00 L, Hgb 9.2 L D, Hct 26.8 L, MCV 89.4, MCH 30.6, MCHC 34.2, RDW 16.5, Plt Count 140 L D, MPV 7.4, Neut % (Auto) 8
[2020-07-15 08:38] LABS: Anisocytosis 1+; Lymphocytes % 6 % (10-50); Monocytes % 2 % (2-9); Neutrophils % 92 % (42-76); Platelet Estimate Normal; Total Cells Counted 100
--- NOTE | 2020-07-15 08:41 | HMH.DCSUM ---
General - General Admission date:: 07/14/20 Discharge date: 07/15/20 HPI HPI: She is 39-year-old lady who complains of lower abdominal pain. She started having severe pain in the middle of the night and then came into the ER first thing this morning. She had an episode of syncope and came into the ER. It was discovered that she has likely had a bleeding cyst from the ovary. She received 2 units of blood and her blood pressure has stabilized. She is admitted for laparoscopy and control of bleeding cyst. Hospital Course Hospital Course: On July 14, 2020 she underwent a laparoscopic ovarian cystectomy on the left side. She had about 1500 cc of blood in the pelvis. This was evacuated. She was admitted overnight. She has done well postoperatively and has remained afebrile throughout her hospitalization. She did receive 2 units of blood and her postoperative hemoglobin this morning is 9.2. She is feeling well. She will be discharged home to follow-up with me in approximately 2 weeks time. She will continue with her multivitamin and iron. She was given a prescription for Percocet 5/325 number 20 tablets. She will continue with her home medications. She was given the usual instructions with respect to limiting her activity, driving and sexual activity. Her condition on discharge is stable and improved. Objective Vital signs: Temp Pulse Resp BP Pulse Ox 99.0 F 90 20 111/60 99 07/15/20 08:00 07/15/20 08:00 07/15/20 08:00 07/15/20 08:00 07/15/20 08:00 no acute distress - *Routine HEENT Exam Head: Present: normocephalic Eye: Present: EOMI, PERRL ENT: Present: mucous membranes moist - *Routine Abdominal Exam Present: soft, normoactive bowel sounds. Absent: tenderness Comments: Her laparoscopic incisions are clean and dry. Results Labs on day of discharge: Labs from last 24 hours 07/15/20 07/15/20 07/14/20 06:22 06:22 15:50 WBC 14.9 H D RBC 3.00 L Hgb 9.2 L D 10.9 L Hct 26.8 L 31.3 L MCV 89.4 MCH 30.6 MCHC 34.2 RDW 16.5 Plt Count 140 L D MPV 7.4 Neut % (Auto) 85.6 H Lymph % (Auto) 7.7 L Gray % (Auto) 6.6 Eos % (Auto) 0.1 Baso % (Auto) 0.1 Neut # (Auto) 12.8 H Lymph # (Auto) 1.1 Gray # (Auto) 1.0 Eos # (Auto) 0.0 Baso # (Auto) 0.0 Total Counted 100 Neutrophils % (Manual) 92 H Lymphocytes % (Manual) 6 L Monocytes % (Manual) 2 Platelet Estimate Normal RBC Morphology Not Reportable Anisocytosis 1+ Sodium 136 Potassium 3.4 L Chloride 112 H Carbon Dioxide 22 Anion Gap 5.4 BUN 4 L D Creatinine 0.60 Estimated Creat Clear 102 Estimated GFR 112 Est GFR ( Amer) 135 Glucose 96 D Calcium 7.7 L D Chlamy pneumoniae PCR Adenovirus (PCR) B. pertussis DNA (PCR) Coronavirus OC43 (PCR) Coronavirus HKU1 (PCR) Coronavirus 229E (PCR) SARS-CoV-2 (PCR) Coronavirus NL63 (PCR) Human Metapneumovir PCR Influenza A (H1) PCR Influ A (H1N1/09) PCR Influenza A (H3) PCR Influenza Type A (PCR) Influenza Type B (PCR) M. pneumoniae (PCR) Parainfluenza 1 (PCR) Parainfluenza 2 (PCR) Parainfluenza 3 (PCR) Parainfluenza 4 (PCR) RSV (PCR) Entero/Rhino (PCR) SARS-CoV-2 IgG Ab (Rapid) SARS-CoV-2 IgM Ab (Rapid) Blood Type Blood Type Confirm Antibody Screen Crossmatch ([facility]) 07/14/20 07/14/20 07/14/20 11:05 10:38 08:15 WBC RBC Hgb 11.0 L Hct 32.7 L MCV MCH MCHC RDW Plt Count MPV Neut % (Auto) Lymph % (Auto) Gray % (Auto) Eos % (Auto) Baso % (Auto) Neut # (Auto) Lymph # (Auto) Gray # (Auto) Eos # (Auto) Baso # (Auto) Total Counted Neutrophils % (Manual) Lymphocytes % (Manual) Monocytes % (Manual) Platelet Estimate RBC Morphology Anisocytosis Sodium Potassium Chloride Carbon
--- NOTE | 2020-07-15 10:37 | PC.NURSE ---
discharge instructions given to patient at this time. encouraged questions and pt v/u
--- NOTE | 2020-07-16 11:14 | P.PN_ITS ---
[facility] Anesthesia Record Part II Discharge Time: 10:55 Destination: floor PACU nurse assessment reviewed?: Yes Patient Condition:: Good Anesthesia Complications:: None Swallowing reflex intact?: Yes Cyanosis?: No Blood Pressure: 87/60 Pulse Rate: 89 Temperature: 98.7 F Mental Status: Alert & Oriented Pain level:: 3 Nausea and/or vomitting:: None Intake, IV Amount: 2,000
[2020-07-16 11:15] VITALS: BP 87/60; PULSE 89; TEMP 37.1
== END 2020-07-15 10:55 | disposition home or self-care (01) ==
LOC: ER 08:35 → OR 09:42 → OB 09:55
PROVIDERS: Admitting Provider Nurse Practitioner Obstetrics & Gynecology; Emergency Provider Emergency Medicine; PCP Internal Medicine Adolescent Medicine; Visit Provider Nurse Practitioner Obstetrics & Gynecology
PROC: (CPT 49320; principal; 2020-07-14 09:00)
DX: N83.202 Unspecified ovarian cyst, left side (principal); K66.1 Hemoperitoneum
CPT/HCPCS: 58662; 36415; 70450; 71045; 72125; 72170; 74177; 80048; 80076; 81001; 81025; 82150; 83605; 83690; 84436; 84443; 84484; 84703; 85007; 85014; 85018; 85025; 86328; 86850; 87040; 87581; 87633; 87798; 93005; 96365; 96374; 96375; 99284; G0378; J2405; J2710; P9016; Q9967

== ENCOUNTER → 2020-08-01 13:55 | Outpatient (CLI) | payer OTHER, SELFPAY ==
[2020-08-01 14:14] LABS: Basophils # 0.1 K/mm3 (0-0.2); Basophils % 0.5 % (0.1-2.0); Eosinophils % 0.2 % (0.1-12.0); Hematocrit 35.2 % (37.0-47.0); Hemoglobin 11.6 g/dL (12.2-16.2); Lymphocytes # 0.9 K/mm3 (0.7-4.5); Mean Corpuscular HGB Conc 32.9 g/dL (31.8-35.4); Mean Corpuscular Hemoglobin 30.7 pg (27.0-31.2); Mean Corpuscular Volume 93.4 fl (81-99); Mean Platelet Volume 7.3 fl (7.4-10.4); Monocytes # 0.5 K/mm3 (0.1-1.0); Monocytes % 4.9 % (1.7-9.3); Neutrophils # 9.4 K/mm3 (1.8-7.8); Neutrophils % 86.4 % (37.0-80.0); Platelet Count 327 K/mm3 (142-424); Red Blood Count 3.77 M/mm3 (4.20-5.40); Red Cell Distribution Width 15.7 % (11.5-17.5); White Blood Count 10.9 K/mm3 (4.8-10.8)
[2020-08-01 14:19] LABS: MANUAL DIFFERENTIAL MANUAL DIFFERENTIAL (MANUAL DIFF)
[2020-08-01 14:57] LABS: Lymphocytes % 5 % (10-50); Monocytes % 5 % (2-9); Neutrophils % 90 % (42-76); Platelet Estimate Normal; RBC Morphology Normal; Total Cells Counted 100
[2020-08-01 15:03] LABS: Chloride 101 mmol/L (98-107); Potassium 4.1 mmoL/L (3.5-5.1); Sodium 136 mmol/L (136-145)
[2020-08-01 15:06] LABS: Alanine Aminotransferase 16 U/L (12-78); Albumin Level 4.8 g/dl (3.5-5.0); Alkaline Phosphatase 54 U/L (38-126); Anion Gap 12.1 mEq/L (5-15); Aspartate Amino Transferase 21 U/L (14-36); Bilirubin,Total 0.3 mg/dl (0.2-1.3); Blood Urea Nitrogen 10 mg/dl (7-17); Calcium 9.7 mg/dl (8.4-10.2); Carbon Dioxide 27 mmol/L (22.0-30.0); Estimated Glomerular Filt Rate 111 ml/min (>60); GFR (African American) 135 ML/MIN (>60); Globulin 2.4 g/dL (1.3-3.2); Glucose 172 mg/dl (74-100); Total Protein,Serum 7.2 g/dl (6.3-8.2)
[2020-08-01 18:11] LABS: Hemoglobin A1C 5.1 % (4.0-6.0)
== END ==
PROVIDERS: Visit Provider Internal Medicine Adolescent Medicine
DX: M05.79 Rheumatoid arthritis with rheumatoid factor of multiple sites without organ or systems involvement (principal); D62 Acute posthemorrhagic anemia; R73.9 Hyperglycemia, unspecified
CPT/HCPCS: 36415; 80053; 83036; 85007; 85025

== ENCOUNTER → 2021-02-27 10:44 | Outpatient (CLI) | payer OTHER, SELFPAY ==
--- NOTE | 2021-02-27 10:47 | CA_ITS ---
APPROVED REPORT EXAM: Comprehensive 2D, Doppler, and color-flow Echocardiogram Electrician Front: Shonda Cantu, RT(R) Ht: 5 ft 2 in Wt: 115lbs BSA: 1.51 BP: 96/72 mmHg Indications: Maritza danlos syndrome, murmur. 2D Dimensions LVOT 1.87 cm (M/F) 1.5-2.5 LA Volume 32.30 mL LA Volume Index 21.39 mL/m2 (M/F) 16-34 M-Mode Dimensions RVDd 1.97 cm (0.9-2.6) LA Diam 1.72 cm (1.9-4.0) LVDd 4.35 cm (3.5-5.7) Ao Diam 2.33 cm (2.0-3.7) LVDs 2.75 cm (3.5-5.7) IVSd 0.61 cm (0.6-1.1) PWd 0.55 cm (0.6-1.1) EF (Teich) 66.90% FS 36.80% EDV (Teich) 85.40 mL ESV (Teich) 28.30 mL LV Diastology MED E' 8.60 (< 7 cm/sec) LAT E' 17.50 (<10 cm/sec) Tricuspid Valve TR P. Velocity 147.00 cm/s RAP Estimate 10.00 mmHg RVSP 18.60 mmHg Left Ventricle Left atrium is normal size, left ventricle is normal size, there is no concentric left ventricular hypertrophy, visually estimated ejection fraction 55% with no regional wall motion abnormality. Diastolic parameters are within normal range. Right Ventricle Right atrium and right ventricle are normal size and contractility. Aortic Valve Aortic valve is grossly normal, aortic root is normal size, there is no aortic stenosis or aortic insufficiency. Mitral Valve Mitral valve grossly normal, there is trace mitral regurgitation. Tricuspid Valve Tricuspid grossly normal, there is trace tricuspid regurgitation, calculated right ventricular systolic pressure is within normal range. Pulmonic Valve Pulmonic valve is poorly visualized. Great Vessels Aortic root is normal size. Inferior vena cava is normal size with normal inspiratory collapse. Pericardium No significant pericardial effusion noted. Conclusion 1. Normal left ventricular size, preserved left ventricular systolic function, visually estimated ejection fraction 55% with no regional wall motion abnormality, diastolic parameters are within normal range. 2. Trace mitral and tricuspid regurgitation. 3. No significant pericardial effusion noted. 4. Inferior vena cava is normal size with normal inspiratory collapse. Electronically signed by : Humberto Chavez MD 02/27/2021 13:34:59
== END ==
PROVIDERS: PCP Internal Medicine Adolescent Medicine; Visit Provider Internal Medicine Adolescent Medicine
DX: Q79.60 Ehlers-Danlos syndrome, unspecified (principal)
CPT/HCPCS: 93306

== ENCOUNTER → 2021-05-28 13:47 | Outpatient (CLI) | payer OTHER, SELFPAY ==
--- NOTE | 2021-05-28 13:50 | XR_ITS ---
FINAL REPORT CLINICAL HISTORY: RHEUMATOID ARTHRITIS,LT WRIST PAIN FINDINGS: LEFT WRIST Three views demonstrate no acute fracture or dislocation. Mild degenerative changes are present. There is no bony erosion. The bones are well-mineralized. No soft tissue abnormality is seen. IMPRESSION: No acute process. Reviewed, Interpreted and Dictated by Paulie Matthews III, MD Transcribed by Rhonda Dan Authenticated by Paulie Matthews III, MD on 05/28/2021 02:33:32 PM [facility]
--- NOTE | 2021-05-28 13:50 | XR_ITS ---
FINAL REPORT CLINICAL HISTORY: RHEUMATOID ARTHRITIS,NECK PAIN COMPARISON: 12/21/2016 FINDINGS: CERVICAL SPINE SERIES Seven views demonstrate no fracture or subluxation. The disc spaces are well-preserved. There is no abnormal movement with flexion and extension maneuvers. IMPRESSION: No acute process. Reviewed, Interpreted and Dictated by Paulie Matthews III, MD Transcribed by Rhonda Dan Authenticated by Paulie Matthews III, MD on 05/28/2021 02:33:17 PM [facility]
== END ==
PROVIDERS: PCP Internal Medicine Adolescent Medicine; Visit Provider Internal Medicine Adolescent Medicine
DX: M25.532 Pain in left wrist (principal); M54.2 Cervicalgia; M05.79 Rheumatoid arthritis with rheumatoid factor of multiple sites without organ or systems involvement; Q79.60 Ehlers-Danlos syndrome, unspecified
CPT/HCPCS: 72052; 73110

== ENCOUNTER → 2021-10-20 09:31 | Outpatient (CLI) | payer OTHER, SELFPAY ==
--- NOTE | 2021-10-20 09:35 | US_ITS ---
FINAL REPORT CLINICAL HISTORY: PELVIC PAIN FINDINGS: Transvaginal sonographic images of the pelvis were obtained. The uterus measures 7.7 x 5.0 x 4.9 cm. There is an 8 mm heterogeneous area in the uterus of uncertain etiology. The endometrium measures 5 mm, which is within normal limits. The right ovary measures 2.5 cm in length and left ovary measures 5.0 cm in length. Normal blood flow seen to the ovaries. There is a 1.8 cm complex cyst in the left ovary. There is no evidence of free fluid. IMPRESSION: 8 mm heterogeneous area of uncertain etiology in the uterus could represent a small fibroid. Complex left ovarian cyst. Reviewed, Interpreted and Dictated by Paulie Matthews III, MD Transcribed by Ashok Landers Authenticated and [facility]
== END ==
PROVIDERS: PCP Internal Medicine Adolescent Medicine; Visit Provider Internal Medicine Adolescent Medicine
DX: R10.2 Pelvic and perineal pain (principal)
CPT/HCPCS: 76830

== ENCOUNTER → 2021-12-24 13:04 | Outpatient (CLI) | payer OTHER, SELFPAY ==
--- NOTE | 2021-12-24 13:07 | XR_ITS ---
FINAL REPORT CLINICAL HISTORY: LT HIP IMPINGEMENT SYNDROME,RHEUMATOID ARTHRITIS COMPARISON: July 14, 2020 FINDINGS: LEFT HIP Two views of the left hip with an AP pelvis demonstrate no acute fracture or dislocation. The joint spaces appear normal. The visualized bony structures are well aligned. No soft tissue abnormality is seen. IMPRESSION: No acute bony abnormality. Reviewed, Interpreted and Dictated by Paulie Matthews III, MD Transcribed by Jovita Covington Authenticated and [facility][1]
--- NOTE | 2021-12-24 13:07 | XR_ITS ---
FINAL REPORT CLINICAL HISTORY: LT KNEE PAIN,RHEUMATOID ARTHRITIS FINDINGS: LEFT KNEE Three views of the left knee were obtained. There is no acute fracture or dislocation. Visualized joint spaces are normally aligned. There is no joint effusion. Soft tissues are unremarkable. IMPRESSION: No acute bony abnormality. Reviewed, Interpreted and Dictated by Paulie Matthews III, MD Transcribed by Joivta Covington Authenticated and [facility]
== END ==
PROVIDERS: PCP Internal Medicine Adolescent Medicine; Visit Provider Internal Medicine Adolescent Medicine
DX: M25.852 Other specified joint disorders, left hip (principal); M25.562 Pain in left knee; M05.79 Rheumatoid arthritis with rheumatoid factor of multiple sites without organ or systems involvement
CPT/HCPCS: 73502; 73562

== ENCOUNTER 2022-01-19 08:00 | Outpatient (RCR) | payer OTHER, SELFPAY ==
--- NOTE | 2022-01-01 08:41 | HMH.PTOPEV ---
PT Outpatient Evaluation Rehab PT Outpatient Evaluation Start: 01/01/22 08:05 Freq: Status: Active Protocol: Document 01/01/22 08:30 PHOLaverneROEL (Rec: 01/01/22 08:40 PHORNE [id number]) E-signed By Frank Medina, PT Outpatient Therapy Subjective History Subjective History Pt is 41 yowf who presents with c/o L hip pain anterior and posterior x ~ 1 mo. She reports insidious onset after a flare-up of RA. She has hx of prior hip labral repair on the L side. She reports pain is fairly constant, but low grade and only worse with prolonged standing or walking. 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 Chief Complaint Pain,Stiff Symptom Type Ache,Sharp Symptoms Relieved By Rest/Positioning Symptoms Aggravated By Standing,Walking Prior Functional Limitations None Current Functional Limitations Standing,Recreation Activity, Walking Symptom Description Constant but Variable Level of pain today (0-10) 2 Pain scale - at its worst (0-10) 8 Hip/Knee Eval Gait Observation General Gait Pattern Observation No Deviations/Normal Palpation Tenderness left Knee Palpation Overall Comment L IT, SI, and piriformis. Hip Palpation Findings Tenderness MMT bilateral Hip Strength Reason Not Measured WFL Special Tests Hip Bowstring (Cram) Test Negative Left,Negative Right Hip Fili's Test Negative Left,Negative Right Hip Jose Test Negative Left,Negative Right Hip Scouring (Quadrant) Test Negative Left,Negative Right Outpatient Therapy Assessment Impairments Problems/Impairmments Palpation Tenderness,Impaired Walking,Impaired Standing, Impaired Sitting,Impaired Recreational Activities, Subjective C/O Pain,Impaired Self Care/Self Management Prognosis Rehab Potential Good Clinical Impression Consistent with Diagnosis Yes Short Term Goals Number of Weeks 2 Decreased Palpation Tenderness Yes: 04/21 L hip Increase Ability to Sit Yes: without pain Decrease Subjective C/O Pain Yes: 04/27 Patient to be Ind w/ HEP Yes Usp Goals Number of Weeks 4 Decrea
== END 2022-01-19 08:05 | disposition home or self-care (01) ==
LOC: PT 08:00
PROVIDERS: PCP Internal Medicine Adolescent Medicine; Visit Provider Internal Medicine Adolescent Medicine
DX: M25.852 Other specified joint disorders, left hip (principal); M25.562 Pain in left knee; M05.79 Rheumatoid arthritis with rheumatoid factor of multiple sites without organ or systems involvement
CPT/HCPCS: 97110; 97140; 97163

== ENCOUNTER → 2022-06-22 08:05 | Outpatient (CLI) | payer OTHER, SELFPAY ==
--- NOTE | 2022-06-22 08:13 | MR_ITS ---
FINAL REPORT CLINICAL HISTORY: MIGRAINE WITH AURA, PARESTHESIA. WORSENING HEADACHE [id number] WITH TINNITUS AND PULSING ON RIGHT SIDE OF NECK. FINDINGS: Multiple projection images of the neck arterial vasculature were obtained without contrast. The raw data images were also reviewed. The right common carotid artery has an unremarkable appearance without evidence of stenosis or occlusion. The right internal carotid artery has an unremarkable appearance without evidence of stenosis or occlusion. The right external carotid artery is patent. The right vertebral artery is patent without evidence of stenosis. The left common carotid artery has an unremarkable appearance without evidence of stenosis or occlusion. The left internal carotid artery is patent without evidence of stenosis or occlusion. The left external carotid artery is patent. The left vertebral artery is patent without evidence of stenosis. IMPRESSION: Unremarkable MR angiogram of the neck without evidence of stenosis or occlusion. Reviewed, Interpreted and Dictated by Paulie Matthews III, MD Transcribed by Rhonda Dan Authenticated and [facility]
--- NOTE | 2022-06-22 08:13 | MR_ITS ---
FINAL REPORT CLINICAL HISTORY: MIGRAINE WITH AURA, PARESTHESIA. WORSENING HEADACHE [id number] WITH TINNITUS AND PULSING ON RIGHT SIDE OF NECK. FINDINGS: Multiplanar MR imaging of the brain was performed without and with contrast. There is no evidence of intracranial hemorrhage or mass. No abnormal extra-axial fluid collection is seen. The ventricular size is within normal limits. There is no evidence of shift of the midline structures. The posterior fossa and brainstem have an unremarkable appearance. No area of abnormal restricted diffusion is identified. No abnormal contrast enhancement is seen. Normal major vessel vascular flow voids are noted. IMPRESSION: No acute intracranial abnormality identified. Reviewed, Interpreted and Dictated by Paulie Matthews III, MD Transcribed by Rhonda Dan Authenticated and . [facility]
== END ==
PROVIDERS: PCP Internal Medicine Adolescent Medicine; Visit Provider Internal Medicine Adolescent Medicine
DX: G43.109 Migraine with aura, not intractable, without status migrainosus (principal); G62.9 Polyneuropathy, unspecified; R20.2 Paresthesia of skin
CPT/HCPCS: 70547; 70553; A9576

== ENCOUNTER → 2022-11-05 07:39 | Outpatient (CLI) | payer OTHER, SELFPAY ==
--- NOTE | 2022-11-05 07:42 | MR_ITS ---
FINAL REPORT TECHNIQUE: Multiplanar and multisequence imaging the left knee was obtained without contrast. CLINICAL HISTORY: LEFT KNEE PAIN. knee locks up. anterior and medial sided knee pain FINDINGS: Bones: There is no acute fracture or marrow edema. The joint space is preserved. There are no full thickness cartilage defects. Menisci: No meniscal tear is present. Ligaments: No cruciate or collateral ligament tear is present. Tendons/Muscles: The quadriceps and patellar tendons are within normal limits. The biceps femoris tendon and iliotibial tract are intact. The popliteus tendon is normal. Other: There is no joint effusion. Remaining soft tissues are normal. IMPRESSION: No acute osseous abnormality, meniscal tear, or ligament tear. No supporting structure injury. Reviewed, Interpreted and Dictated by Cynthia Alegria MD Transcribed by Rhonda Dan Authenticated and [facility]
== END ==
PROVIDERS: PCP Internal Medicine Adolescent Medicine; Visit Provider Internal Medicine Adolescent Medicine
DX: M25.562 Pain in left knee (principal)
CPT/HCPCS: 73721

== ENCOUNTER → 2023-04-15 15:00 | Outpatient (CLI) | payer OTHER, SELFPAY ==
--- NOTE | 2023-04-15 15:13 | US_ITS ---
PROCEDURE: US TRANSVAGINAL CLINICAL INDICATION: PELVIC PAIN COMPARISON: US US TRANSVAGINAL from 07/04/2020 FINDINGS: Transvaginal sonographic images of the pelvis were obtained. UTERUS: 7.0cm x 4.7cmx 4.6cm retroverted and retroflexed with a combined endometrial thickness of 4.6mm. Hyperechoic areas in the cervix along with several nabothian cysts. The largest measures 1.4 cm. Post ablation changes in the endometrium. LEFT OVARY: 4.2cmx3.9cmx2.2cm with a volume of 19.1ml. Debris-filled cyst within the left ovary consistent with a resolving hemorrhagic cyst. It has the typical lacy pattern and ground-glass appearance. The cyst measures 3.2 cm x 3.0 cm x 2.2 cm. RIGHT OVARY: 1.6cmx 1.3cmx2.1cm with a volume of 2.3ml. A small 6 mm follicle is seen. Both ovaries are seen . Doppler flow to both ovaries are seen. There is no fluid in the cul-de-sac. IMPRESSION: 1. Retroverted retroflexed uterus. The endometrium is thin at 4.6 mm. Post ablation changes are seen. 2. A 1.4 cm nabothian cyst is seen in the cervix. 3. The right ovary appears normal. 4. The left ovary has a hemorrhagic cyst measuring 3.2 cm. 5. No fluid in the cul-de-sac. Dictated by: Chavez Petersen MD 04/17/2023 13:23 Chavez Petersen MD in [place] 04/17/2023 13:23
== END ==
LOC: RAD 15:01
PROVIDERS: PCP Internal Medicine Adolescent Medicine; Visit Provider Internal Medicine Adolescent Medicine
DX: R10.2 Pelvic and perineal pain (principal)
CPT/HCPCS: 76830

== ENCOUNTER 2023-08-02 13:24 | Outpatient (CLI) | payer OTHER, SELFPAY ==
--- NOTE | 2023-08-02 13:25 | US_ITS ---
PROCEDURE: US TRANSVAGINAL CLINICAL INDICATION: hemorrhagic left ovarian cyst versus endometrioma. COMPARISON: US US TRANSVAGINAL from 04/15/2023 FINDINGS: Transvaginal sonographic images of the pelvis were obtained. UTERUS: 6.8 cm x 4.3cm x 4.4 cm retroverted with a combined endometrial thickness of 5.3mm. There are post ablation changes. There are a few small hyperechoic areas adjacent to the endometrium. There is a nabothian cyst measuring 1.0 cm in the cervix. LEFT OVARY: 3.1 cmx1.3 cmx2.2cm There are multiple small follicles within the left ovary. The largest measures 0.83 cm. There are several miniscule hyperechoic areas in the ovary. The previously described hemorrhagic cyst has completely resolved. RIGHT OVARY: 3.0cmx 2.6 cmx2.2cm with a volume of 8.8ml. There are several follicles in the right ovary. The largest measures 1.7 cm. Both ovaries are seen and appear normal. Doppler flow to both ovaries are seen. There is trace fluid in the cul-de-sac. IMPRESSION: 1. Retroverted uterus normal in shape and size. 2. The endometrium is thin and there are post ablation changes. There are number of small echogenic foci within the uterus adjacent to the endometrium. Likely post ablation changes. 3. The previously seen left ovarian hemorrhagic cyst has completely resolved. There are a number of small hyperechoic areas in the left ovary. 4. Both ovaries have multiple follicles. 5. Trace fluid in the cul-de-sac Dictated by: Chavez Petersen MD 08/02/2023 16:47 Chavez Petersen MD in [place] 08/02/2023 16:47
== END 2023-08-02 23:59 | disposition home or self-care (01) ==
LOC: RAD 13:25
PROVIDERS: PCP Internal Medicine Adolescent Medicine; Visit Provider Obstetrics & Gynecology
DX: N83.202 Unspecified ovarian cyst, left side (principal)
CPT/HCPCS: 76830

== ENCOUNTER 2023-08-31 08:00 | Outpatient (RCR) | payer OTHER, SELFPAY ==
--- NOTE | 2023-06-10 10:31 | HMH.PTOPEV ---
PT Outpatient Evaluation Rehab PT Outpatient Evaluation Start: 06/10/23 10:13 Freq: Status: Active Protocol: Document 06/10/23 10:13 PEBBLES (Rec: 06/10/23 10:31 PEBBLES [id number]) E-signed By Kurtis Oro, PT Outpatient Therapy Subjective History Subjective History Pt reports h/o chronic neck pain, cervicogenic RUIZ's, and migraines for ~20 yrs. Pt reports this most recent episode started ~3 months ago, left > right sided neck pain reported, with referred pain from left upper trap mm into suboccipital region, as well as anterio-lateral left sided neck pain w/SCM mm referral pattern. Pt reports all aforementioned cervical and shoulder girdle mm referral patterns 'don't seem to follow activity-based correlations.' PMH: RA New diagnosis of cancer in past 12 No months? Chief Complaint Pain,Stiff Symptom Type Ache,Throb,Sharp,Dull Symptoms Relieved By Rest/Positioning,OTC Meds, Prescription Meds Prior Functional Limitations Lifting,Desk Work/Reading Current Functional Limitations Lifting,Desk Work/Reading Symptom Description Constant but Variable Level of pain today (0-10) 2 Pain scale - at its best (0-10) 1 Pain scale - at its worst (0-10) 7 Cervical Eval Palpation Cervical Muscles L Cervical Paraspinal,L Suboccipital,L SCM,R Upper Trapezius,L Upper Trapezius Cervical/Thoracic Palpation Findings Tenderness,Trigger Point, Muscle Guarding Posture Head/C-Spine Posture Sitting Position Neutral Position Head/C-Spine Posture Standing Position Neutral Position Flexibility Deficits Upper Trapezius Muscle Length (L) Moderate Tightness Levaetor Scapulae Muscle Length (L) Mild Tightness Scalene Group Muscle Length (L) Moderate Tightness Sternocleidomastoid Muscle Length (L) Mild Tightness Passive Joint Mobility Cervical PIVM WNL: R OA L OA R AA L AA R C2/3 L C2/3 R C3/4 L C3/4 R C4/5 L C4/5 R C5/6 L C5/6 R C6/7 L C6/7 R C7/T1 L C7/T1 AROM Cervical Spine Extension Active Range of 0-40 Motion (degrees) Cervical Spine Flexion Active Range of 0-60 Motion (degrees) Cervical Spine Right Lateral Flexion 0-35 Active Range of Motion (degrees) Cervical Spine Left Lateral Flexion 0-40 Active Range of Motion (degrees) Cervical Spine Right Rotation Active 0-65 Range of Motion (degrees) Cervical Spine Left Rotation Active 0-65 Range of Motion (degrees) MMT Right Deltoid (C5) 4 Good Left Deltoid (C5) 4- Good- Neck Disability Index Neck Disability Index Section 1: Pain Intensity The pain is moderate at the moment Section 2: Personal Care (washing, I can look after myself dressing, etc.) normally without causing extra pain Section 3: Lifting I can lift heavy weights but it gives extra pain Section 4: Reading I can read as much as I want with moderate pain in my neck Section 5: Headaches I have moderate headaches, which come frequently Section 6: Concentration I can concentrate fully when I want to with no difficulty Section 7: Work I can do as much work as I want to Section 8: Driving I can drive my car as long as I want with moderate pain in my neck Section 9: Sleeping My sleep is midly disturbed (1 -2 hrs sleepless) Section 10: Recreation I am able to engage in all my recreation activities with some pain in NDI Score 13 Outpatient Therapy Assessment Impairments Problems/Impairmments Palpation Tenderness,Impaired Range of Motion,Impaired Strength,Impaired Lifting, Impaired Household Care, Impaired Work Activities, Subjective C/O Pain,Impaired Self Care/Self Management Prognosis Rehab Potential Good Clinical Impression Consistent with Diagnosis Yes Short Term Goals Number of Weeks 4 Decreased Palpation Tenderness Yes: 1-2/4 cervical mm Increase Range of Motion Yes: 75-80% of WFL CROM Increase Strength Yes: 4/5 LEFT DELTOID Improve Ability For Household Care Yes: 30MIN W/O INCREASED PAIN Improve Tolerance to Work Activities Yes: 30MIN W/O INCREASED PAIN Decrease Subjective C/O Pain Yes: 3/10 W/ABOVE ACTIVITIES 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 Number of Weeks 6-8 Decreased Palpation Tenderness Yes: CERVICAL AND SH MM Increase Range of Motion Yes: WFL CROM Increase Strength Yes: WFL B/L DELTOID MM Improve Ability For Household Care Yes: 60MIN W/O INCREASED PAIN Improve Tolerance to Work Activities Yes: 60MIN W/O INCREASED PAIN Improve Tolerance to Desk/Computer Yes: 60MIN W/O INCREASED PAIN Activities Improve Neck Disability Index Score Yes: 6-8 Decrease Subjective C/O Pain Yes: 0-2/10 W/ABOVE ACTIVITIES Patient to be Ind w/ Advanced HEP Yes Outpatient Therapy Plan of Care Treatment Plan May Include Therapeutic Exercise Including Home Yes Exercise Program Manual Therapy Techniques Yes Neuromuscular Re-education Yes Therapeutic Activities to Return to Yes Previous Functional/Work Level ADL/Self Care Education Yes Mechanical Traction Yes Dry Needling Yes Thermal Modalities Yes Electrical Stimulation Yes Ultrasound/Phonophoresis Yes Eval/Re-Eval Yes Frequency Times per week 2-3 Duration Number of Weeks 6-8 Addendums This patient is a candidate for social No or vocational rehab? Patient/Guardian verbally acknowledges Yes understanding of treatment program and consents to further treatment? Patient/Guardian verbally acknowledges Yes understanding of diagnosis, prognosis and goals for treatment? Eval Complexity PT Charges 37201 - Moderate Complexity Shoulder/Elbow Eval Shoulder Objective Measurements Elbow Objective Measurements PHYSICIAN CERTIFICATION: I certify the specified therapy services for Yenny Cardoso are required, authorized, and reviewed every 30 days.
== END 2023-08-31 08:05 | disposition home or self-care (01) ==
LOC: PT 08:00
PROVIDERS: Visit Provider Internal Medicine Adolescent Medicine
DX: M54.2 Cervicalgia (principal)
CPT/HCPCS: 20560; 20561; 97010; 97014; 97035; 97163; G0283

== ENCOUNTER 2023-11-18 09:15 | Outpatient (CLI) | payer OTHER, SELFPAY ==
--- NOTE | 2023-11-18 09:26 | XR_ITS ---
FINAL REPORT TECHNIQUE: AP and bilateral oblique views of the sacroiliac joints. CLINICAL HISTORY: SI JOINT PAIN COMPARISON: None FINDINGS: SACROILIAC JOINTS: Views of the sacroiliac joints failed to reveal any evidence of fracture or dislocation. There is no significant narrowing or sclerosis of the sacroiliac joints. The remainder of the pelvis is unremarkable. IMPRESSION: Unremarkable views of the sacroiliac joints. Reviewed, Interpreted and Dictated by Suleman Larios MD Transcribed by Betty Solis Authenticated and [facility]
== END 2023-11-18 23:59 | disposition home or self-care (01) ==
LOC: RAD 09:16
PROVIDERS: PCP Internal Medicine Adolescent Medicine; Visit Provider Nurse Practitioner Family
DX: M53.3 Sacrococcygeal disorders, not elsewhere classified (principal)
CPT/HCPCS: 72202

== ENCOUNTER 2024-01-03 14:01 | Outpatient (POV) | payer OTHER, SELFPAY ==
[2024-01-03 14:51] VITALS: BP 114/75; PULSE 76; RESP 16; O2SAT 98; BMI 20.1
--- NOTE | 2024-01-03 15:03 | A.OFFVIS_ITS ---
[facility] Disclaimer: The information contained in this section may have been updated after the patient was seen, as this information can be updated by other users. Medical History Hx of rheumatoid arthritis Intrauterine polyp Ectopic Maritza-Danlos syndrome Acne Insomnia Ovarian cyst Endometriosis Migraine Surgical History History of laparoscopic appendectomy Hx of cholecystectomy History of endometrial ablation Hx of section Hx of tubal ligation Hx of hand surgery Family History Sister Cancer breast Grandmother Cancer breast Grandfather Cancer prostate Other Diabetes Social History (Updated 01/03/24 @ 14:52 by Erma Trevizo RN) Smoking Status: Never smoker alcohol intake: never substance use type: denies use current occupational status: employed Travel in the last 8 weeks: None household members: spouse and children housing: house PM Subjective & Objective Subjective Subjective:: Patient is a pleasant 43-year-old female who comes her clinic today reporting left posterior hip pain. Left lumbar back pain. Patient reports difficulty transitioning from sitting to standing. Difficulty with ambulation. Difficulty with sitting. Patient had left hip labral tear repair several months ago. Patient not having anterior hip pain at this time. Patient has been through many sessions of physical therapy since having hip surgery. She has been taking NSAIDs and acetaminophen with minimal help. She has positive Romain's, Gaenslen's, left sacroiliac joint compression test. She rates her pain 7/10. Patient has had left SI joint injection in the past with significant improvement lasting 1 to 2 years. Pain at rest (0-10 scale): 7 Objective Objective:: Patient is awake alert [place] x 3. In no acute distress. Flexion-extension lumbar spine somewhat guarded secondary to pain. Deep tendon reflexes upper and lower extremities normal. Motor strength upper and lower extremities normal. There is no gross sensory deficit. Gait is normal. Has patient had previous pain injection?: Yes Percent improvement in pain since last injection: 100 Conservative treatment options previously tried: NSAIDS Length of treatment: 12 months, Home exercise plan Length of treatment: 0, Physical Therapy Length of treatment: 0, Chiropractor Length of treatment: 0 and Other (please describe) Meds Home Medications and Allergies Home Medications ?Medication ?Instructions ?Recorded ?Confirmed ?Type erenumab-aooe 70 mg/mL 140 mg SQ MONTHLY migraine 09/05/18 08/19/23 History subcutaneous auto-injector prevention fexofenadine 180 mg tablet 180 mg PO DAILY Allergy symptoms 09/05/18 08/19/23 History (Luly Allergy) magnesium oxide 400 mg PO DAILY migraine prevention 09/05/18 08/19/23 History meloxicam 15 mg tablet 15 mg PO DAILYP PRN pain #30 tabs 09/05/18 08/19/23 History ubrogepant 100 mg tablet 100 mg PO NEEDED PRN migraine 07/14/20 08/19/23 History headaches folic acid 1 mg tablet 2 mg PO DAILY 11/20/21 08/19/23 History methotrexate sodium 2.5 mg tablet 2.5 mg PO .6 tabs,Wkly 11/20/21 08/19/23 History abatacept 125 mg/mL subcutaneous mg SQ 04/29/23 08/19/23 History auto-injector (Orencia ClickJect) galcanezumab-gnlm 120 mg/mL 120 mg SQ 04/29/23 08/19/23 History subcutaneous pen injector (Emgality Pen) pantoprazole 40 mg tablet,delayed 40 mg PO 04/29/23 08/19/23 History release spironolactone 50 mg tablet 50 mg PO DAILY 04/29/23 08/19/23 History trazodone 50 mg tablet 50 mg PO DAILY 04/29/23 08/19/23 History azelastine 137 mcg (0.1 %) nasal intranasal 08/19/23 08/19/23 History spray baclofen 10 mg tablet mg PO PRN 08/19/23 08/19/23 History tretinoin 0.1 % topical cream applic topical 08/19/23 08/19/23 History elagolix 150 mg tablet (Orilissa) See Rx Instructions .Route 10/18/23 Rx .COMPLEX #28 tabs New Prescriptions to Start Prescriptions: Allergies Allergy/AdvReac Type Severity Reaction Status Date / Time Estrogens [ESTROGENS] Allergy Unknown Verified 08/19/23 13:23 Assessment and Plan *Assessment and plan (1) Sacroiliitis: Status: Acute Category: Medical Code(s): M46.1 - Sacroiliitis, not elsewhere classified Plan Discussed in detail with the patient regarding left sacroiliac joint injection of cortisone and local anesthetic. She wishes to proceed.
== END 2024-01-03 23:59 | disposition home or self-care (01) ==
LOC: SC.PAIN 14:03
PROVIDERS: PCP Internal Medicine Adolescent Medicine; Visit Provider Nurse Anesthetist, Certified Registered
DX: M46.1 Sacroiliitis, not elsewhere classified (principal); Z79.899 Other long term (current) drug therapy
CPT/HCPCS: 99202; G0463

== ENCOUNTER 2024-01-10 13:25 | Day surgery (SDC) | payer OTHER, SELFPAY ==
[2024-01-10 14:03] VITALS: BP 104/59; PULSE 68; RESP 18; TEMP 36.7; O2SAT 100; BMI 20.1
[2024-01-10 14:34] VITALS: BP 110/63; PULSE 64; RESP 16; TEMP 36.9; O2SAT 100
[2024-01-10] MEDS: BUPIVACAINE 0.25% 10ML INJ 25 MG IJ (14:36)
[2024-01-10] MEDS: methylPREDNISolone ACETATE 80MG/ML VIAL 80 MG (14:36)
[2024-01-10] MEDS: LIDOCAINE 1% 5ML PF VIAL 5 ML (14:36)
[2024-01-10 14:37] VITALS: BP 100/68; PULSE 76; RESP 18; O2SAT 100
[2024-01-10 14:38] VITALS: BP 100/68; PULSE 76; RESP 18; O2SAT 100
--- NOTE | 2024-01-10 14:38 | P.PCN_ITS ---
Procedure Date: 01/10/24 Time: 14:30 Anesthesiologist:: Angelito Sotomayor CRNA Complications:: None Pre-procedure Diagnosis:: Left sacroiliitis Post-procedure Diagnosis:: Same Indications for Procedure:: Patient very pleasant 43-year-old female comes to clinic today for left sacroiliac joint injection of cortisone and local anesthetic. Patient describes low lumbar back pain off the midline to the left. Also, left posterior hip pain. She rates her pain 7/10. Procedure Details:: Procedure: Left sacroiliac injection under fluoroscopy Informed consent was obtained and the risk and benefits of the procedure were explained to the patient.~ The patient was taken to the procedure room and noninvasive monitors were placed including noninvasive blood pressure cuff and pulse oximeter.~ The patient was placed prone on the procedure table.~ The~ left hip was cleansed using Betadine as a cleansing solution.~ C-arm fluorosocpy was used to view the left SI joint.~ The skin and subcutaneous tissues were anesthetized using Lidocaine 1.5% and a 25-gauge needle.~ After this, a 22-gauge spinal needle was inserted under fluoroscopic guidance into the inferior aspect of the left SI joint.~ Omnipaque dye was injected and a good spread was seen th roughout the joint.~ After this, approximately 5 mL of bupivacaine 0.25% and Depo-Medrol 40 mg was incrementally injected into the sacroiliac joint.~ The patient tolerated the procedure well with no complications.~ The patient was observed in the Pain Clinic for a period of 30-45 minutes, then discharged home neurologically intact.~ Plan and Disposition:: Patient was discharged without incident.
== END 2024-01-10 14:34 | disposition home or self-care (01) ==
PROVIDERS: PCP Internal Medicine Adolescent Medicine; Visit Provider Nurse Anesthetist, Certified Registered
DX: M46.1 Sacroiliitis, not elsewhere classified (principal)
CPT/HCPCS: 27096; G0260; J1010

== ENCOUNTER 2024-02-17 12:54 | Outpatient (CLI) | payer OTHER, SELFPAY ==
--- NOTE | 2024-02-17 12:57 | MR_ITS ---
FINAL REPORT CLINICAL HISTORY: Left elbow pain , pt has had 2 prior scopes on it FINDINGS: On the coronal images, there is some heterogeneous abnormal signal identified at the insertion of the common extensor tendon. Findings consistent with tendinosis and partial insertional tear. There is no overlying fluid or edema. Common flexor tendon appears intact. At the lateral margin of the lateral compartment joint space, 2 intra-articular loose bodies are identified. Individual loose bodies measure up to 5 mm, and are best seen on the T1-weighted sagittal image #16 of series 7. Mild hypertrophic changes are seen at the medial and lateral joint margins. Triceps tendon appears intact. Biceps tendon appears intact. IMPRESSION: 1. 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 No associated marrow edema or fluid. 2. 2 separate intra-articular loose bodies at the lateral margin of the lateral compartment joint space. Please correlate with nature of clinical symptoms. 3. Hypertrophic changes of osteoarthritis at the medial and lateral joint margins, greater than expected for patient's age. Authenticated and ERN
== END 2024-02-17 23:59 | disposition home or self-care (01) ==
LOC: RAD 12:55
PROVIDERS: PCP Internal Medicine Adolescent Medicine; Visit Provider Internal Medicine Adolescent Medicine
DX: M25.522 Pain in left elbow (principal); M05.79 Rheumatoid arthritis with rheumatoid factor of multiple sites without organ or systems involvement; M24.00 Loose body in unspecified joint; Q79.60 Ehlers-Danlos syndrome, unspecified
CPT/HCPCS: 73221

== ENCOUNTER 2024-03-09 08:00 | Outpatient (RCR) | payer OTHER, SELFPAY ==
--- NOTE | 2024-01-13 11:02 | HMH.PTOPEV ---
PT Outpatient Evaluation Rehab PT Outpatient Evaluation Start: 01/13/24 08:57 Freq: Status: Active Protocol: Document 01/13/24 10:20 PEBBLES (Rec: 01/13/24 11:02 PEBBLES [id number]) E-signed By Kurtis Oro, PT Outpatient Therapy Subjective History Subjective History Pt reports insidious onset left SI area discomfort beginning ~4 months ago. Pt reports pain has stayed ' fairly localized' to the left SI jt area, however, reports referred pain into left lumbar region and left hip (posterio -lateral, and some anterior jt line). Pt reports h/o chronic left hip pain secondary to labral tear and repair sx. ~ 8 yrs ago (labral repair w/hip preservation procedures). Pt also reports systemic jt pain and hypermobility secondary to RA and Ehler-Danlos syn. Pt currently reports increased left hip/SI pain w/prolonged walking/hiking or w/prolonged sitting. New diagnosis of cancer in past 12 No months? Chief Complaint Pain,Clicks,Weakness Symptom Type Ache,Dull Symptoms Relieved By Rest/Positioning,Heat,Ice, Prescription Meds Symptoms Aggravated By Sitting,Physical Activity, Walking Prior Functional Limitations Housework,Sitting,Walking Current Functional Limitations Housework,Sitting,Walking Symptom Description Constant but Variable Level of pain today (0-10) 2 Pain scale - at its best (0-10) 2 Pain scale - at its worst (0-10) 5 Lumbopelvic Eval Posture Thoracic Spine Posture Standing Position Neutral Lumbar Spine Posture Standing Position Neutral Gait Observation General Gait Pattern Observation No Deviations/Normal Palapation tenderness right lumbar spinal tenderness Yes: 2/4 paraspinal tenderness Yes: 1/4 left lumbar spinal tenderness Yes: 3/4 paraspinal tenderness Yes: 3/4 buttock tenderness Yes: 3/4 Accessory Movement L-spine Vertebrae Accessory Movements [employer] [place] that Elicit Symptoms L4 left L5 left Manual Muscle Test Left Knee Extension Strength Grade 4 Good Knee Flexion Strength Grade 5 Normal Hip Flexion Strength Grade 5 Normal Hip Abduction Strength Grade 4- Good- Hip External Rotation Strength Grade 4- Good- Hip Internal Rotation Strength Grade 4- Good- Extensor Hallucis Longus Strength Grade 5 Normal Ankle Dorsiflexion Strength Grade 5 Normal Special Tests Hip Scouring (Quadrant) Test Negative Right,Positive Left Hip Piriformis Test Negative Left,Negative Right Sciatic Nerve Tension Test Negative Left Reverse Sciatic Nerve Tension Test Negative Left,Negative Right Sacroiliac Joint Compression Test Positive Left Oswestry Index Section 1 Pain Intensity The pain is mild and does not vary much Section 2 Personal Care (Washing,Dresing) my way of washing or dressing even though it causes some pain Section 3 Lifting I can lift heavy weights, but it gives me extra pain Section 4 Walking I cannot walk more than one mile wihtout increasing pain Section 5 Sitting Pain prevents me from sitting for more than one hour Section 6 Standing I cannot stand more than 1 hour without increasing pain Section 7 Sleeping Because of my pain, my normal night's sleep is less than 6 hours sleep Section 8 Social Life Pain has no significant effect on my social life apart from limiting Section 9 Traveling I get extra pain while traveling, but it does not compel me to seek al Section 10 Changing Degreee of Pain My pain is neither getting better or worse Score and Risk Level Oswestry Sc 18 Oswestry Risk Level Moderate Disability Outpatient Therapy Assessment Impairments Problems/Impairmments Palpation Tenderness,Impaired Strength,Impaired Sitting, Impaired Recreational Activities,Subjective C/O Pain ,Impaired Self Care/Self Management Prognosis Rehab Potential Good Clinical Impression Consistent with Diagnosis Yes Short Term Goals Number of Weeks 4 Decreased Palpation Tenderness Yes: 1-2/4 left hip, lumbar mm Increase Strength Yes: 4/5 left hip mm Increase Ability to Sit Yes: 30min Improve Ability For Household Care Yes: 30min Return to Recreational Activities Yes: 30min hiking/walking Decrease Subjective C/O Pain Yes: 3/10 w/above activities 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 6-8 Decreased Palpation Tenderness Yes: 0-1/4 left hip mm, lumbar mm Increase Strength Yes: 4+-5/5 left hip mm Increase Ability to Sit Yes: 60min Return to Recreational Activities Yes: 60min hiking/walking Decrease Subjective C/O Pain Yes: 0-2/10 w/above activities Patient to be Ind w/ Advanced HEP Yes Outpatient Therapy Plan of Care Treatment Plan May Include Therapeutic Exercise Including Home Yes Exercise Program Manual Therapy Techniques Yes Neuromuscular Re-education Yes Therapeutic Activities to Return to Yes Previous Functional/Work Level Gait Training Yes ADL/Self Care Education Yes Dry Needling Yes Thermal Modalities Yes Electrical Stimulation Yes Ultrasound/Phonophoresis Yes Iontophoresis Yes Orthotics/Bracing/Splinting Yes Eval/Re-Eval Yes Frequency Times per week 2-3 Duration Number of Weeks 6-8 Addendums This patient is a candidate for social No or vocational rehab? Patient/Guardian verbally acknowledges Yes understanding of treatment program and consents to further treatment? Patient/Guardian verbally acknowledges Yes understanding of diagnosis, prognosis and goals for treatment? Eval Complexity PT Charges 28930 - Moderate Complexity Shoulder/Elbow Eval Shoulder Objective Measurements Elbow Objective Measurements PHYSICIAN CERTIFICATION: I certify the specified therapy services for Yenny Cardoso are required, authorized, and reviewed every 30 days.
--- NOTE | 2024-02-17 08:46 | HMH.RHREAS ---
Rehab Reassessment Rehab OP Re-assessment Start: 01/13/24 08:57 Freq: Status: Active Protocol: Document 02/17/24 08:28 [place]AN[place]UANTON (Rec: 02/17/24 08:46 PEBBLES [id number]) E-signed By Kurtis Oro, PT Rehab Re-assessment Subjective Subjective Pt reports 'very little' discomfort from the left SI region or the lumbar spine over the last ~3-4 days. Pt does however report left groin and posterior hip pain with referred pain into left thigh area, 'which I would attribute to the labrum damage.' Pt reports able to execute prolonged ambulation up and down hills without significant changes in left hip, left side low back, and/or left SI area pain, discomfort, or fatigue. Objective Objective Notes MMT: LEFT HIP FLX 4--4/5, L HIP ABD 4--4/5, L HIP IR 4/5, L HIP ER 4/5 TTP: LEFT GLUT 2/4, LEFT LUMBAR PARASPINALS 1/4, RIGHT LUMBAR PARASPINALS 1/4, LEFT SI JT 1-2/4 PROM: LEFT HIP ER WFL W/PAIN IN POSTERIOR JT LINE AT END ROM, LEFT HIP IR WFL Assessment Progress Assessment Progressing as Expected Assessment Notes IMPROVED STRENGTH, TTP, AND OVERALL FUNCTION Patient goals met STG'S 10/22 LTG'S 04/23 Goals Not Met LTG'S 08/21 Plan Plan Pt to continue w/skilled P.T. to make further improvements in ROM, strength, and TTP to allow for optimal function Frequency of Therapy 1-2x/wk Duration of therapy 3-5wks Time and Billing Re-Eval Time 12 Re-Eval Billing Units 1 Charge for PT reassessment? Yes PHYSICIAN CERTIFICATION: I certify the specified therapy services for Yenny Cardoso are required, authorized, and reviewed every 30 days.
== END 2024-03-09 23:59 | disposition home or self-care (01) ==
LOC: PT 08:00
PROVIDERS: Visit Provider Nurse Practitioner Family
DX: M79.605 Pain in left leg (principal); M53.3 Sacrococcygeal disorders, not elsewhere classified; G89.29 Other chronic pain
CPT/HCPCS: 20560; 20561; 97014; 97035; 97110; 97163; 97164; G0283

== ENCOUNTER 2024-03-30 07:32 | Outpatient (CLI) | payer OTHER, SELFPAY ==
--- NOTE | 2024-03-30 07:35 | MR_ITS ---
FINAL REPORT CLINICAL HISTORY: ACUTE BILATERAL LOW BACK PAIN. intermittent left leg and hip pain. FINDINGS: Multiplanar MR imaging of the lumbar spine was performed without contrast. On the sagittal T2-weighted images, disc degeneration is seen at multiple levels. The vertebral alignment is normal. No bony mass is identified. There is no evidence of fracture. The conus has an unremarkable appearance. T12-L1: There is no significant canal stenosis or neuroforaminal narrowing. L1-2: An annular disc bulge is present. There is a small central disc protrusion. There is no significant canal stenosis or neuroforaminal narrowing. L2-3: An annular disc bulge is present. There is no significant canal stenosis or neuroforaminal narrowing. L3-4: There is no significant canal stenosis or neuroforaminal narrowing. L4-5: There is no significant canal stenosis or neuroforaminal narrowing. L5-S1: There is no significant canal stenosis or neuroforaminal narrowing. IMPRESSION: Small central disc protrusion at L1-2. Reviewed, Interpreted and Dictated by Paulie Matthews III, MD Transcribed by Rhonda Dan Authenticated and [facility]
== END 2024-03-30 23:59 | disposition home or self-care (01) ==
LOC: RAD 07:32
PROVIDERS: PCP Internal Medicine Adolescent Medicine; Visit Provider Internal Medicine Adolescent Medicine
DX: M54.42 Lumbago with sciatica, left side (principal)
CPT/HCPCS: 72148

== ENCOUNTER → 2024-04-12 13:09 | Outpatient (CLI) | payer OTHER, SELFPAY | LOC: SL 13:10 | PROVIDERS: PCP Nurse Practitioner Family; Visit Provider Nurse Practitioner Family | DX: G47.33 Obstructive sleep apnea (adult) (pediatric) (principal); G47.9 Sleep disorder, unspecified; R40.0 Somnolence; G25.81 Restless legs syndrome; R51.9 Headache, unspecified | CPT/HCPCS: G0399 ==

== ENCOUNTER 2024-04-13 08:00 | Outpatient (RCR) | payer OTHER, SELFPAY ==
--- NOTE | 2024-04-06 10:17 | HMH.PTOPEV ---
PT Outpatient Evaluation Rehab PT Outpatient Evaluation Start: 04/06/24 07:56 Freq: Status: Active Protocol: Document 04/06/24 08:44 SHARON (Rec: 04/06/24 10:16 THADRONAL [id number]) E-signed By Marky Hameed, PT Outpatient Therapy Subjective History Subjective History The patient is a 43 yof who presents to [facility] OP PT with complaints of L sided low back and hip pain. The patient reports that she also has had an MRI that showed a slight disc bulge at L1-L2. 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 She reports that the pain in her hip has been ongoing for years , but she always felt like she could work it out. However, in August of this year, the pain began to worsen, move to her lower back and she could not get it to work out. The patient reports that she has had surgeries on her hip for a repaired labrum. The patient denies numbness and tingling except for into her foot occasionally when she walks for longer distances. The patient has a PMH of Ehler- Dahlos Syndrome and Rheumatoid Arthritis. New diagnosis of cancer in past 12 No months? Chief Complaint Pain Symptom Type Ache Symptoms Relieved By Rest/Positioning,Heat,OTC Meds ,Activity Symptoms Aggravated By Sitting,Bending/Stooping, Twisting,Walking Prior Functional Limitations None Current Functional Limitations Housework,Standing,Sitting, Squatting,Walking,Stairs Symptom Description Constant but Variable Level of pain today (0-10) 2 Pain scale - at its best (0-10) 1 Pain scale - at its worst (0-10) 6 Lumbopelvic Eval Posture Thoracic Spine Posture Standing Position Neutral Lumbar Spine Posture Standing Position Neutral Assistive device Assistive Devices None / NA Gait Observation General Gait Pattern Observation No Deviations/Normal Palapation tenderness left thoracic spinal tenderness No lumbar spinal tenderness Yes: 2/4 to L3-S1 Centrally and L side Accessory Movement L3 left L4 left L5 left S1 left Range of Motion Lumbar Spine ROM Reason Not Measured Within Functional Limits Manual Muscle Test Left Knee Extension Strength Grade 4- Good- Knee Flexion Strength Grade 4- Good- Hip Flexion Strength Grade 3+ Fair+ Hip Abduction Strength Grade 3+ Fair+ Hip Extension Strength Grade 3+ Fair+ Ankle Dorsiflexion Strength Grade 5 Normal DTR Rt Patellar 2+ Lt Patellar 2+ Rt Gastroc/Soleus 2+ Lt Gastroc/Soleus 2+ Altered Sensation Bilateral Comment Intact Special Tests Hip Scouring (Quadrant) Test Negative Left,Negative Right Hip Angelito (JERALD) Test Negative Right,Positive Left Sciatic Nerve Tension Test Negative Left,Negative Right Reverse Sciatic Nerve Tension Test Negative Left,Negative Right Hip 90-90 Straight Leg Raise Test Negative Left,Negative Right Sacroiliac Joint Compression Test Positive Left,Positive Right Sacroiliac Joint Distraction Test Positive Left,Positive Right Oswestry Index Section 1 Pain Intensity The pain comes and goes and is moderate Section 2 Personal Care (Washing,Dresing) increase the pain, but I manage not to change my way of doing it Section 3 Lifting lifting heavy weights off the floor, but I can manage if they are Section 4 Walking I cannot walk more than one mile wihtout increasing pain Section 5 Sitting Pain prevents me from sitting for more than one hour Section 6 Standing I cannot stand more than 1 hour without increasing pain Section 7 Sleeping Because of my pain, my normal night's sleep is less than 6 hours sleep Section 8 Social Life My social life is normal and gives me no extra pain Section 9 Traveling I get extra pain while traveling, but it does not compel me to seek al Section 10 Changing Degreee of Pain My pain is neither getting better or worse Score and Risk Level Oswestry Sc 20 Oswestry Risk Level Moderate Disability Outpatient Therapy Assessment Impairments Problems/Impairmments Palpation Tenderness,Impaired Strength,Impaired Walking, Impaired Standing,Impaired Household Care,Impaired Stair Climbing,Impaired Squatting, Subjective C/O Pain Prognosis Rehab Potential Good Comment The patient presents with complaints of Low back/hip pain into her L side. She presents with weakness of her lumbar and hip musculature, tenderness into her lumbar spine and positive SI tests. These signs and symptoms are consistent with a PT diagnosis of low back pain with movement coordination impairments, with suspicion of SI instability. The patient would benefit from lumbar stabilization exercises. Skilled PT is indicated to address her current impairments. Clinical Impression Consistent with Diagnosis Yes Short Term Goals Number of Weeks 4 Decreased Palpation Tenderness Yes: 1 to Lumbar spine Increase Strength Yes: 07/21 to hips/knee Increase Ability to Walk Yes: 1/2 mile without increasing pain Increase Ability to Sit Yes: 30 minutes without increasing pain Improve Oswestry Score Yes: Mild Disability Decrease Subjective C/O Pain Yes: 07/26 at worst Patient to be Ind w/ HEP Yes [facility]iary Goals Number of Weeks 8 Decreased Palpation Tenderness Yes: 0/4 to lumbar spine Increase Strength Yes: 5/5 to B hips/knees Increase Ability to Walk Yes: 1 mile without increasing pain Increase Ability to Sit Yes: 1 hour without increasing pain Improve Oswestry Score Yes: No disability Improve Self Care/Self Management Yes: 2/10 at worst Patient to be Ind w/ Advanced HEP Yes Outpatient Therapy Plan of Care Treatment Plan May Include Therapeutic Exercise Including Home Yes Exercise Program Manual Therapy Techniques Yes Neuromuscular Re-education Yes Therapeutic Activities to Return to Yes Previous Functional/Work Level ADL/Self Care Education Yes Mechanical Traction Yes Dry Needling Yes Thermal Modalities Yes Electrical Stimulation Yes Manual Lymphatic Drainage Yes Eval/Re-Eval Yes Frequency Times per week 1-2/week Duration Number of Weeks 8 weeks Addendums This patient is a candidate for social No or vocational rehab? Patient/Guardian verbally acknowledges Yes understanding of treatment program and consents to further treatment? Patient/Guardian verbally acknowledges Yes understanding of diagnosis, prognosis and goals for treatment? Eval Complexity PT Charges 08331 - Moderate Complexity Shoulder/Elbow Eval Shoulder Objective Measurements Elbow Objective Measurements PHYSICIAN CERTIFICATION: I certify the specified therapy services for Yenny Cardoso are required, authorized, and reviewed every 30 days.
== END 2024-04-13 23:59 | disposition home or self-care (01) ==
LOC: PT 08:00
PROVIDERS: PCP Internal Medicine Adolescent Medicine; Visit Provider Internal Medicine Adolescent Medicine
DX: M54.16 Radiculopathy, lumbar region (principal); M54.17 Radiculopathy, lumbosacral region
CPT/HCPCS: 97010; 97014; 97110; 97163; 97530; G0283

== ENCOUNTER 2024-05-18 08:00 | Outpatient (RCR) | payer OTHER, SELFPAY ==
--- NOTE | 2024-05-11 08:52 | HMH.RHREAS ---
Rehab Reassessment Rehab OP Re-assessment Start: 04/27/24 14:09 Freq: Status: Active Protocol: Document 05/11/24 08:01 SHARON (Rec: 05/11/24 08:51 SHARON [id number]) E-signed By Marky Hameed, PT Oswestry Index Section 1 Pain Intensity The pain comes and goes and is very mild Section 2 Personal Care (Washing,Dresing) my way of washing or dressing even though it causes some pain Section 3 Lifting Pain prevents me from lifting weights off the floor Section 4 Walking I cannot walk more than one mile wihtout increasing pain Section 5 Sitting I can sit in my favorite chair for as long as I like Section 6 Standing I have some pain on standing, but it does not increase with time Section 7 Sleeping I get pain in bed, but it does not prevent me from sleeping well Section 8 Social Life My social life is normal and gives me no extra pain Section 9 Traveling I get some pain when traveling , but none of my usual forms of travel m Section 10 Changing Degreee of Pain My pain is getting better Score and Risk Level Oswestry Sc 9 Oswestry Risk Level Mild Disability Rehab Re-assessment Subjective Subjective Pt reports that the one thing that she continues to have difficulty with is being bent over for a lengthened amount of time and then straightening up. She reports that she is still occasionally dealing with some L hip pain but is usually able to settle it down through stretching. Pt reports that she is improved approximately 75%. She reports that she is unsure if she can walk for longer periods, as she has not attempted it yet. She reports that bending over to lift items such as a laundry basket. Pt reports that she can sit for approximately 45 minutes before her symptoms seem to flare up. Patient reports that in the past week the worst that her pain has been has been a 4/10 and that was during the night. Objective Objective Notes MEETA: 9 (Mild Disability) Strength: -Hip Flexion 5/5 B -Knee Extension 5/5 B - Knee Flexion 5/5 B - Hip ABD: 4/5 B - Hip Ext 4/5 B TTP: 1/4 to L lumbar paraspinals L5-S1 Sacral Thrust: - Posterior Sacral Compression: - Anterior SI Gapping: + JERALD's: - Assessment Progress Assessment Progressing as Expected Assessment Notes Pt has demonstrated significant progress thus far. She has demonstrated improvements in strength, pain pressure threshold, MEETA score and SI pain provocation tests . The pt continues to demonstrate slight decrements in strength and motor control. Skilled PT remains indicated for this pt. Patient goals met ST,2,4,5,6,[address] Not Met ST LT-7 Plan Plan Continue as per initial POC Frequency of Therapy 1/week Duration of therapy 4 weeks Time and Billing Re-Eval Time 12 Re-Eval Billing Units 1 Charge for PT reassessment? Yes PHYSICIAN CERTIFICATION: I certify the specified therapy services for Yenny Cardoso are required, authorized, and reviewed every 30 days.
== END 2024-05-18 23:59 | disposition home or self-care (01) ==
LOC: PT 08:00
PROVIDERS: PCP Internal Medicine Adolescent Medicine; Visit Provider Internal Medicine Adolescent Medicine
DX: M54.16 Radiculopathy, lumbar region (principal); M54.17 Radiculopathy, lumbosacral region
CPT/HCPCS: 97014; 97110; 97164; 97530; G0283

== ENCOUNTER 2024-05-18 09:00 | Outpatient (RCR) | payer OTHER, SELFPAY ==
--- NOTE | 2024-05-04 09:14 | HMH.OTOPEV ---
OT Inpatient Evaluation Rehab OT Outpatient Eval Start: 05/04/24 09:02 Freq: Status: Active Protocol: Document 05/04/24 09:02 BILLYMCAY (Rec: 05/04/24 09:13 KAVONCHANTE [id number]) E-signed By Juana Dunham, OT Outpatient Therapy Subjective History Subjective History 43 year old female referred to skilled OP OPT services for LUE arm and L UE elbow pain. Patient recently underwent s/p to L UE elbow scope to remove three bone fragments. Patient reported this is the 3rd time a scope has been completed on L UE elbow. Patient had a MRI on 02/17/24 with L UE elbow with findings of: 1. 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 No associated marrow edema or fluid. 2. 2 separate intra-articular loose bodies at the lateral margin of the lateral compartment joint space. Please correlate with nature of clinical symptoms. 3. Hypertrophic changes of osteoarthritis at the medial and lateral joint margins, greater than expected for patient's age. Patient reported weakness and pain/discomfort in the L UE elbow and L UE Shld when completing everyday functional tasks such as drsg and grooming/hygiene. Patient exhibit limited AROM of LUE flexion. New diagnosis of cancer in past 12 No months? Chief Complaint Pain Symptom Type Ache Symptoms Relieved By Nothing Symptoms Aggravated By Physical Activity Prior Functional Limitations None Current Functional Limitations Reaching,Lifting Symptom Description Constant and Continuous Level of pain today (0-10) 5 Pain scale - at its best (0-10) 5 Pain scale - at its worst (0-10) 5 Shoulder/Elbow Eval Shoulder Objective Measurements Shoulder MMT Left Upper Trapezius/Levator Scapulae 3 Fair Shoulder Abduction Strength Grade 3 Fair Shoulder Extension Strength Grade 3 Fair Shoulder Flexion Strength Grade 3 Fair Shoulder Horizontal Adduction Strength 3 Fair Grade Infraspinatus/Teres Minor Strength Grade 3 Fair Shoulder External Rotation Strength 3 Fair Grade Shoulder Internal Rotation Strength 3 Fair Grade Elbow Objective Measurements Elbow ROM Left full ROM elbow exam standard left Elbow Extension Active Range of Motion ( 0 degrees) Elbow Flexion Active Range of Motion ( 126 degrees) Elbow Flexion Passive Range of Motion ( 145 degrees) Elbow Pronation of Forearm Range of 90 Motion (degrees) Elbow Supination of Forearm Range of 90 Motion (degrees) Elbow MMT Elbow Flexion Strength Grade 3 Fair Biceps Brachii Strength Grade 3 Fair Elbow Extension Strength Grade 3 Fair Triceps Brachii Strength Grade 3 Fair Supination Strength Grade 3 Fair Pronation Strength Grade 3 Fair Wrist/Hand Eval Dietetic Assistant/Pinch Strength Right Dietetic Assistant Strength Measurement (lbs) 58 Left Dietetic Assistant Strength Measurement (lbs) 18 QuickDA Activities Please rate your ability to do the following activities in the last week by selecting the number below the appropriate response. 1. Open a tight or new jar. Severe difficulty 2. Do heavy household appliance installer (e.g., wash Moderate difficulty thomas, floors). 3. Carry a shopping bag or briefcase. Mild difficulty 4. Wash your back. Mild difficulty 5. Use a knife to cut food. Mild difficulty 6. Recreational activities in which you Moderate difficulty take some force or impact through your arm, shoulder, or hand (e.g., golf, hammering, tennis, etc.). 7. During the past week, to what extent Quite a bit has your arm, shoulder or hand problem interfered with your normal social activities with family, friends, neighbors or groups? 8. During the past week, were you Slightly limited limited in your work or other regular daily activites as a result of your arm, shoulder or hand problem? 9. Arm, shoulder or hand pain. Moderate 10. Tingling (pins and needles) in your None arm, shoulder or hand. 11. During the past week, how much Moderate difficulty difficulty have you had sleeping because of the pain in your arm, shoulder or hand? Quick DASH 29 OT Outpatient Assessment Impairments Problems/Impairments Impaired Range of Motion, Impaired Strength,Subjective C /O Pain Clinical Impression Consistent with Diagnosis Yes Short Term Goals Number of Weeks 2 Increase Range of Motion Yes: Improve AROM of L UE elbow flex: 135 Increase Strength Yes: Improve L UE shld/elb strength to 4- to 4/5 throughout to assist with ADLs . Decrease Subjective C/O Pain Yes: 4/10 pain at worst Patient to be Ind w/ HEP Yes: PROM Patient to be Ind w/ Advanced HEP Yes: Strengthening Improve Quick Dash Score Yes: 26 Care Home Goals Number of Weeks 4 Increase Range of Motion Yes: Improve AROM of L UE elbow flex: 145 Increase Strength Yes: Improve L UE shld/elbow strength to 4/+5 throughout to assist with ADLs Decrease Subjective C/O Pain Yes: 3/10 pain at worst Patient to be Ind w/ HEP Yes: AROM Patient to be Ind w/ Advanced HEP Yes: Advance strengthening Improve Quick Dash Score Yes: 23 Outpatient Therapy Plan of Care Treatment Plan May Include Therapeutic Exercise Including Home Yes Exercise Program Manual Therapy Techniques Yes Therapeutic Activities to Return to Yes Previous Functional/Work Level Electrical Stimulation Yes Ultrasound/Phonophoresis Yes Iontophoresis Yes Eval/Re-Eval Yes Aquatic Therapy Yes Frequency Times per week 1-2x/wk Duration Number of Weeks 4 weeks Addendums This patient is a candidate for social No or vocational rehab? Patient/Guardian verbally acknowledges Yes understanding of treatment program and consents to further treatment? Patient/Guardian verbally acknowledges Yes understanding of diagnosis, prognosis and goals for treatment? Eval Complexity OT Charge 89368 - Low Complexity PHYSICIAN CERTIFICATION: I certify the specified therapy services for Yenny Cardoso are required, authorized, and reviewed every 30 days.
== END 2024-05-18 23:59 | disposition home or self-care (01) ==
LOC: OT 09:00
PROVIDERS: PCP Internal Medicine Adolescent Medicine; Visit Provider Nurse Practitioner Family
DX: M79.602 Pain in left arm (principal); M77.12 Lateral epicondylitis, left elbow
CPT/HCPCS: 97014; 97035; 97140; 97165; G0283

== ENCOUNTER 2024-05-25 07:54 | Outpatient (RCR) | payer OTHER, SELFPAY | END 2024-05-25 23:59 | disposition home or self-care (01) | LOC: PT 07:54 | PROVIDERS: PCP Internal Medicine Adolescent Medicine; Visit Provider Internal Medicine Adolescent Medicine | DX: M54.17 Radiculopathy, lumbosacral region (principal); M54.16 Radiculopathy, lumbar region | CPT/HCPCS: 97110; 97530 ==

== ENCOUNTER 2024-05-25 08:00 | Outpatient (RCR) | payer OTHER, SELFPAY | END 2024-05-25 23:59 | disposition home or self-care (01) | LOC: OT 08:00 | PROVIDERS: PCP Internal Medicine Adolescent Medicine; Visit Provider Nurse Practitioner Family | DX: M79.602 Pain in left arm (principal); M77.12 Lateral epicondylitis, left elbow | CPT/HCPCS: 97014; 97035; 97140; G0283 ==

== ENCOUNTER 2024-10-12 07:56 | Outpatient (CLI) | payer BC, OTHER, SELFPAY ==
--- OUTSIDE RECORDS SUMMARY | 2024-08-21 14:10 | XMS_ITS | Encounter Summary ---
Author Organization Healthcare Address [address] [place] [address] Care Team Providers Care Gear Inspector Name Role Phone Kavon Deleon MD Primary Care Provider [phone] Reason for Visit * Reason Comments Juvenile Idiopathic Arthritis Encounter Details Date Type Department Care Team (Late st Contact Info) Description 08/21/2024 2:10 PM EDT Office Visit [place] [facility] [address] [place] [address] Kylee Fontana M, AUTOMATED MANUFACTURING INSTRUCTOR [address] [place] [address] JARED (juvenile idiopathic arthritis) ([facility]) Social History Tobacco Use Types Packs/Day Years Used Date Smoking Tobacco: Never Passive Smoke Exposure: Never Smokeless Tobacco: Never Alcohol Use Standard Drinks/Week Comments No 0 (1 standard drink = 0.6 oz pure alcohol) Alcoholic Drinks/day: Never Drank Alcohol PHQ-2 Answer Date Recorded Patient Health Questionnaire-2 Score 0 08/21/2024 PHQ-9 Answer Date Recorded Patient Health Questionnaire-9 Score 3 08/21/2024 PHQ-2A Answer Date Recorded Patient Health Questionnaire-2 Score 0 03/23/2022 Comments No Sex and Gender Information Value Date Recorded Sex Assigned at Not on file Legal Sex Female 8:10 PM EDT Gender Identity Not on file Sexual Orientation Not on file documented as of this encounter Last Filed Vital Signs Vital Sign Reading Time Taken Comments Blood Pressure 106/72 08/21/2024 2:43 PM EDT Pulse 79 08/21/2024 2:43 PM EDT Temperature 36.6 C (97.9 F) 08/21/2024 2:43 PM EDT Respiratory Rate 16 08/21/2024 2:43 PM EDT Oxygen Saturation 97% 08/21/2024 2:43 PM EDT Inhaled Oxygen Concentration - - Weight 54.2 kg (119 lb 7.8 oz) 08/21/2024 2:43 P M EDT Height 157.5 cm (5' 2 ) 08/21/2024 2:43 PM EDT Body Mass Index 21.85 08/21/2024 2:43 PM EDT documented in this encounter Functional Status * Over the past 2 weeks, how often have you been bothered by any of the following problems? Question Answer Date of Assessment Author Little interest or pleasure in doing things Not at all 08/21/2024 2:45 PM EDT Louise Rolle RN Feeling down, depressed, or hopeless Not at all 08/21/2024 2:45 PM EDT Louise Rolle RN Patient Health Questionnaire-2 Score 0 08/21/2024 2:45 PM EDT Louise Rolle RN * Question Answer Date of Assessment Author Trouble falling or staying asleep, or sleeping too much Nearly every day 08/21/2024 2:45 PM EDT Louise Rolle RN Feeling tired or having little energy Not at all 08/21/2024 2:45 PM EDT Louise Rolle RN Poor appetite or overeating Not at all 08/21/2024 2:45 PM EDT Louise Rolle RN Feeling bad about yourself - or that you are a failure or have let yourself or your family down Not at all 08/21/2024 2:45 PM LORENZOT Louise Rolle RN Trouble concentrating on things, such as reading the newspaper or watching television Not at all 08/21/2024 2:45 PM EDT Louise Rolle RN Moving or speaking so slowly that other people could have noticed? Or the opposite - being so fidgety or restless that you have been moving around a lot more than usual. Not at all 08/21/2024 2:45 PM EDT Louise Rolle RN Thoughts that you would be better off or hurting yourself in some way Not at all 08/21/2024 2:45 PM EDT Louise Rolle RN Patient Health Questionnaire-9 Score 3 08/21/2024 2:45 PM EDT Louise Rolle RN * If you checked off any problems on this questionnaire so far, Question Answer Date of Assessment Author How difficult have these problems made it for you to do your work, take care of things at home, or get along with other people? Not difficult at all 08/21/2024 2:45 PM EDT Louise Rolle RN documented as of this encounter Miscellaneous Notes * Patient Instructions - Kylee Fontana APRN - 08/21/2024 2:10 PM EDT - Continue Orencia - Continue meloxicam as needed, prescribed by primary care provider - continue Methotrexate 15mg weekly, FA 1mg daily. * Progress Notes - Kylee Fontana APRN - 08/21/2024 2:10 PM EDT Subjective HPI Yenny Cardoso is a 44 y.o. female with PMH significant for JARED. PMHx of L hip arthroscopy with labral repair femoral osteochondroplasty (05/03), Hypermobility type EDS., who presents today for follow up of JARED - RA. Past history: Diagnosed with JARED at age 9. Serostatus unknown. Xrays did not show erosions in 10/2014. History of acute left iritis- onset 06/2015. Treated with topicals; occurred after tapering ETN from Q1wk to Q2wk. 07/27/2022- Currently on Orencia and Methotrexate 6 pills weekly ( due to nausea). She is following with Dr Paul Alves for OT and her hands for locking.. Initial Rheum ROS: Family History: No known FH of autoimmune diseases. Social History: No known exposure to HCV, HBV, HIV or TB. No hx IV drug use. No hx of tobacco use. No hx of alcohol abuse. Occupational hx: Last visit: 02/07 Off Orencia currently due to recent hand surgery. Should be able to restart this week. Has been continuing on Methotrexate. Has had some flares of 1st MCP and right lateral midfoot, none currently. 08/16/23 having left sided neck pain, random tinnitus and dizziness on and off, some dizziness. Has seen physical therapy multiple times with dry needling. Has not fixed pain. Other joints are feelinggood. Left hand improving, graduated from OT. Has not used prednisone, continues to splint left hand as advised by hand surgery. Labs reviewed from 08/09 and were normal, see media. No recent hx of recurrent infections or hospitalizations. Side-effects with rheumatological medications: none Consult/baseline lab work and imagin02/21/24 having hip pain, but does not feel this RA driven, feels RA is fairly well managed. 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 Continues to work on neck. Hands are doing okay, getting updated xrays today from hand surgery. Feels loose bodies in elbows, needs cleaned out, following with ortho. Having yeast infections, states this occurred last time biologic and Methotrexate. Patient is dealing with diflucan. Discussed preventative dose of diflucan, patient is agreeable with this. Today's Visit: (08/21/24): 08/21/24 using diflucan intermittently, not every week. Had erythema nodosum, felt it was from her carbamazepine, stopped this and that resolved. Had surgery to remove loose body. Has been doing pretty good in her joitns, this week her thumb and hands have been bothering. Also had episode of right ankle stiffness (bad at night and kept her from sleeping), right achilles bothers her times. Mobic was helpful. Review of Systems Constitutional: Negative for chills and fever. Respiratory: Negative for shortness of breath. Cardiovascular: Negative for chest pain. Rheum medication hx: MTX (age [age]; then off age [age]; then 2013-07/2017 D/C due to nausea and fatigue) restarted 08/2021- current LEF (c/b PN) ETN (2004-02/2016; DC due to secondary IR) Humira (03/2016; 08/2016 change to q10 days; 06/2017 change to q7 days) Xeljanz (04/05- 08/06; no benefit) Rinvoq - ineffective Orencia - current The following portions of the chart were reviewed this encounter and updated as appropriate: Allergies Allergen Reactions Estrogens Headache Current Outpatient Medications Medication Sig Dispense Refill Abatacept (Orencia ClickJect) 125 MG/ML solution auto-injector Inject 125 mg under the skin 1 (one)time per week. 4 mL 7 azelastine (Astelin) 0.1 % nasal spray baclofen (Lioresal) 20 MG tablet TAKE ONE TABLET BY MOUTH EVERY DAY NEEDED MAY CAUSE DROWSINESS Emgality 120 MG/ML injection every 30 (thirty) days. fluconazole (Diflucan) 150 MG tablet at night if needed. folic acid (Folvite) 1 MG tablet Take 1 tablet (1 mg) by mouth 1 (one) time each day. 90 tablet 3 gabapentin (Neurontin) 300 MG capsule Take 1 capsule (300 mg) by mouth. (Patient taking differently: Take 1 capsule by mouth. Pt reports taking as needed) ketoconazole (NIZOral) 2 % shampoo APPLY TOPICALLY TO THE AFFECTED AREA(S) three times WEEKLY magnesium oxide (Mag-Ox) 400 mg tablet Take 1 tablet by mouth daily. meloxicam (Mobic) 15 MG tablet Take by mouth at night if needed. methotrexate 2.5 MG tablet Take 6 tablets (15 mg total) by mouth 1 (one) time per week. Follow directions carefully, and ask to explain any part you do not understand. Take exactly as directed. 78 tablet 1 ondansetron (Zofran) 4 MG tablet TAKE ONE TABLET BY MOUTH EVERY 8 HOURS NEEDED FOR NAUSEA AND VOMITING pantoprazole (Protonix) 40 MG EC tablet Take 1 tablet (40 mg) by mouth 1 (one) time each day. polycarbophil (Fibercon) 625 MG tablet Take 1 tablet by mouth daily. SUMAtriptan (Imitrex) 100 MG tablet TAKE 1 TABLET BY MOUTH AT ONSET OF MIGRAINE. MAY REPEAT ONCE AFTER 2 HOURS IF NEEDED tretinoin (Retin-A) 0.05 % cream APPLY TOPICALLY TO THE AFFECTED AREA(S) EVERY DAY AT BEDTIME Ubrelvy 100 MG tablet 1 (one) time if needed. valACYclovir (Valtrex) 1 g tablet Take 2 tablets by mouth 2 times a day. carBAMazepine XR (TEGretol XR) 200 MG 12 hr tablet every night. (Patient not taking: Reported on 08/21/2024) colchicine (Colcrys) 0.6 MG tablet Take 1 tablet (0.6 mg) by mouth 1 (one) time each day. (Patient not taking: Reported on 08/21/2024) 90 tablet 1 cyclobenzaprine (Flexeril) 10 MG tablet 3 (three) times a day if needed. (Patient not taking: Reported on 08/21/2024) HYDROcodone-acetaminophen ([place]) 5-325 MG tablet Take 1 tablet (5 mg of hydrocodone) by mouth every 6 (six) hours if needed for severe pain for up to 12 doses. (Patient not taking: Reported on 08/21/2024) 12 tablet 0 Misc. Devices (Wrist Brace) misc 1 mL 2 (two) times a day. (Patient not taking: Reported on 08/21/2024) 1 each 1 nadolol (Corgard) 20 MG tablet 0.5 tablets (10 mg) every night. (Patient not taking: Reported on 08/21/2024) naloxone (Narcan) 4 mg/0.1 mL nasal spray 1. Give 1 spray in nostril for no/slow breathing or cannot wake after opioid use 2. Call 911 3. Repeat in other nostril if symptoms continue (Patient not takin. Give 1 spray in nostril for no/slow breathing or cannot wake after opioid use 2. Call 911 3.Repeat in other nostril if symptoms continue Reported on 08/21/2024) 1 each 0 Orilissa 150 MG tablet (Patient not taking: Reported on 08/21/2024) traZODone (Desyrel) 50 MG tablet TAKE ONE TABLET BY MOUTH EVERY night FOR SLEEP (Patient not taking: Reported on 08/21/2024) tretinoin (Retin-A) 0.1 % cream APPLY TOPICALLY TO THE AFFECTED AREA(S) EVERY DAY AT BEDTIME (Patient not taking: Reported on 08/21/2024) Zavzpret 10 MG/ACT solution instill 1 SPRAY in THE nostril NEEDED migraine (Patient not taking: Reported on 08/21/2024) No current facility-administered medications for this visit. Objective Vitals: 08/21/24 1443 BP: 106/72 Pulse: 79 Resp: 16 Temp: 36.6 ??C (97.9 ??F) SpO2: 97% Physical Exam Vitals reviewed. Constitutional: Appearance: Normal appearance. She is normal weight. HENT: Head: Normocephalic and atraumatic. Nose: Nose normal. Mouth/Throat: Mouth: Mucous membranes are moist. Pharynx: Oropharynx is clear. Eyes: Conjunctiva/sclera: Conjunctivae normal. Pupils: Pupils are equal, round, and reactive to light. Pulmonary: Effort: No respiratory distress. Musculoskeletal: General: Tenderness and deformity (hx of deformity, unable to access left hand.) present. No swelling. Skin: General: Skin is warm and dry. Neurological: General: No focal deficit present. Mental Status: She is alert and oriented to person, place, and time. Psychiatric: Mood and Affect: Mood normal. Behavior: Behavior normal. Thought Content: Thought content normal. Judgment: Judgment normal. There is currently [facility] Go to the Rheumatology activity andcomplete the homunculus joint exam. Joint Exam 08/21/2024 No joint exam has been documented for this visit 11/28/2020 03/23/2022 CAMACHO-28 (ESR) -- -- CAMACHO-28 (CRP) -- -- Tender (CAMACHO-28) Swollen (CAMACHO-28) Provider Global 100 -- Patient Global 100 -- ESR -- -- CRP -- -- Swollen Joint Count: Swollen: -- Tender Joint Count: Tender: -- Patient global assessment: 2/10 Rapid 3 score: 2.7/30 CDAI: CDAI Interpretation: 0-2.8 Remission 2.9 -10 Low disease activity 10.1-22.0 Moderate Activity 22.1-76.0 High Activity Pt reports % improvement while on current medication Assessment and Plan of Care: Plan of care developed with Yenny Cardoso: 1. JARED -Serostatus unknown. Dx'd with JARED at age 9. -02/21/24 hand xrays: - Continue Orencia - Continue meloxicam as needed, prescribed by primary care provider - continue Methotrexate 15mg weekly, FA 1mg daily. If symptoms not controled symptoms can change to Actemra in the future. -continue weekly diflucan prescribed by primary care provider - Has had some flares of 1st MCP and right lateral midfoot, none currently. 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 -updated xray 02/2024, see images. 2. High risk medication HBV, HCV: TB quant: 12/06 t-spot negative. Chest x-ray: - CBC, Cr., hepatic function panel today - Recommend to hold with infection and contact us with any concern for injection site reaction (if applicable) or medication question. 3. Neck pain -continue to follow PM&R. 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 Parts of this note were dictated using [employer] voice recognition software. As a result, errors may occur. When identified, these engagement lead errors are corrected, but while every attempt is made to prevent/correct these, errors may still exist. This time includes face to face with patient, counseling and discussion and/or coordination of care. minutes on the encounter. The patient was counseled about diagnostic results, instruction for management, risk factors reduction, prognosis, compliance with visits and treatment, risks and benefits of treatments options. Prior notes (by external physicians) and results were reviewed by me with independent interpretation of labs and imaging. My note will be sent to PCP and other consulting physicians. documented in this encounter Plan of Treatment Upcoming Encounters Date Type Department Care Team (Late st Contact Info) Description 02/22/2025 2:10 PM EST Office Visit [place] [facility] [address] [place] [address] Kylee Fontana APRN [address] [place] [phone] documented as of this encounter Visit Diagnoses Diagnosis JARED (juvenile idiopathic arthritis) ([facility]) Other specified inflammatory polyarthropathies documented in this encounter Additional Health Concerns Assessment Noted Time PHQ-9 Depression Total Score: 3 08/22/19 25 2:45 PM EDT A fall risk assessment has been complete d for the patient 08/21/2024 2:45 PM EDT A Body Mass Index follow-up plan has been documented for the patient 08/21/2024 3:15 PM EDT documented as of this encounter Care Teams Gear Inspector Relationship Specialty Start Date End Date Kavon Deleon MD [address] [place] [address] PCP - General 08/29/20 documented as of this encounter
--- NOTE | 2024-10-12 | CA_ITS ---
APPROVED REPORT EXAM: Comprehensive 2D, Doppler, and color-flow Echocardiogram Concaver: Shonda Cantu RT(R) Ht: 5 ft 2 in Wt: 110lbs BSA: 1.48 BP: 90/65 mmHg Indications: migraines, palpitations, facial paresthesia, kelsey danlos syndrom, rheumatoid arthritis 2D Dimensions LVEF (Dsouza's) 57.40 % F: 54 - 74 LV Volume 65.50 mL F: 46 - 106 LV Volume Index 44.3 mL/m2 F: 29 - 61 LA Volume 11.60 mL LA Volume Index 7.84 mL/m2 (M/F) 16-34 EF AP4 54.90 % EF AP2 58.5 % EF BP 57.4 % GL Strain -21.4 % M-Mode Dimensions RVDd 2.27 cm (0.9-2.6) LA Diam 2.45 cm (1.9-4.0) LVDd 3.96 cm (3.5-5.7) LVDs 2.90 cm (3.5-5.7) IVSd 0.77 cm (0.6-1.1) PWd 0.63 cm (0.6-1.1) EF (Teich) 52.90% FS 26.80% EDV (Teich) 68.30 mL ESV (Teich) 32.20 mL LV Diastology E Decel Time 163 (160-240 msec) E/A Ratio 1.3 Mitral Valve MV E Max Robby. 84.0 (40-130 cm/s) MV A Velocity 65.0 (40-130 cm/s) E/A Ratio 1.30 MV PHT 48.0 ms Tricuspid Valve TR P. Velocity 166.00 cm/s Left Ventricle The left ventricle is normal size. The left ventricular systolic function is normal. The left ventricular ejection fraction is within the normal range. There is normal left ventricular wall thickness. There is normal LV segmental wall motion. The left ventricular diastolic function is normal. LVEF is 55%. Right Ventricle The right ventricle is normal size. The right ventricular systolic function is normal. Atria The left atrium size is normal. The right atrium size is normal. There is no Doppler evidence of interatrial shunt. Aortic Valve Aortic valve opens well. There is no aortic valvular stenosis. No aortic regurgitation is present. Mitral Valve The mitral valve is normal in structure. No evidence of mitral valve stenosis. There is no mitral valve regurgitation noted. There is no evidence of mitral valve prolapse. Tricuspid Valve Tricuspid valve is grossly normal in structure and function. Trace tricuspid rotation. There is insufficient TR jet to estimate RVSP. Pulmonic Valve The pulmonary valve is normal in structure. Trace pulmonic regurgitation. Great Vessels The aortic root is normal in size. The ascending aorta is normal in size. IVC is normal in size and collapses >50% with inspiration. Pericardium There is no pericardial effusion. Other Information Study Quality: Fair Conclusion Normal biventricular systolic function. No significant valvular stenosis or regurgitation. Electronically signed by : Tasia Quiroz MD 10/12/2024 22:54:26
--- OUTSIDE RECORDS SUMMARY | 2024-10-12 07:58 | XMS_ITS | Encounter Summary ---
Author Organization [facility] Address [address] [place] [address] Care Team Providers Care Electric Meter Reader Name Role Phone Kavon Deleon MD Primary Care Provider [phone] Encounter Details Date Type Department Care Team (Late st Contact Info) Description 08/21/2024 Telephone [place] [facility] [address] [place] [id number] Sonny Chapa, [place] [address] Social History Tobacco Use Types Packs/Day Years [...] on file documented as of this encounter Functional Status * Over the past 2 weeks, how often have you been bothered by any of the following problems? Question Answer Date of Assessment Author Little interest or pleasure in doing things Not at all 08/21/2024 2:45 PM EDT Louise Rolle RN Feeling down, depressed, or hopeless Not at all 08/21/2024 2:45 PM Louise Lemons RN Patient Health Questionnaire -2 Score 0 08/21/2024 2:45 PM EDT Louise Rolle RN * Question Answer Date of Assessment Author Trouble falling or staying asleep, or sleeping too much Nearly every day 08/21/2024 2:45 PM LORENZOT Louise Rolle RN Feeling tired or having little energy Not at all 08/21/2024 2:45 PM Louise Lemons RN Poor appetite or overeating Not at all 08/21/2024 2:45 PM Louise Lemons RN Feeling bad about yourself - or that you are a failure or have let yourself or your family down Not at all 08/21/2024 2:45 PM Louise Lemons RN Trouble concentrating on things, such as reading the newspaper or watching television Not at all 08/21/2024 2:45 PM Louise Lemons RN Moving or speaking so slowly that other people could have noticed? Or the opposite - being so fidgety or restless that you have been moving around a lot more than usual. Not at all 08/21/2024 2:45 PM Louise Lemons RN Thoughts that you would be better off or hurting yourself in some way Not at all 08/21/2024 2:45 PM Louise Lemons RN Patient Health Questionnaire-9 Score 3 08/21/2024 2:45 PM Louise Lemons RN * If you checked off any problems on this questionnaire so far, Question Answer Date of Assessment Author How difficult have these problems made it for you to do your work, take care of things at home, or get along with other people? Not difficult at all 08/21/2024 2:45 PM Louise Lemons RN documented as of this encounter Miscellaneous Notes * Progress Notes - Kylee Rucker, PharmD - 09/18/2024 9:54 AM EDT Resent prescription(s) to requested pharmacy due to: Patient requested to switch pharmacies. Confirmed script(s) is cancelled at original pharmacy. * Telephone Encounter - Sonny Chapa PharmD - 08/21/2024 3:14 PM EDT 1 medication(s) has been approved per protocol. documented in this encounter Plan of Treatment Upcoming Encounters Date Type Department Care Team (Late st Contact Info) Description 02/22/2025 2:10 PM EST Office Visit [place] [facility] [address] [place] [address] Kylee Fontana, MARLEE [address] [place] [address] documented as of this encounter Visit Diagnoses Diagnosis Rheumatoid arthritis involving multiple sites, unspecified whether rheumatoid factor present ([facility])- Primary documented in this encounter Additional Health Concerns Assessment Noted Time PHQ-9 Depression Total Score: 3 08/22/19 25 2:45 PM EDT A fall risk assessment has been complete d for the patient 08/21/2024 2:45 PM EDT A Body Mass Index follow-up plan has been documented for the patient 08/21/2024 3:15 PM EDT documented as of this encounter Care Teams Electric Meter Reader Relationship Specialty Start Date End Date Kavon Deleon MD [address] [place] [address] PCP - General 08/29/20 documented as of this encounter
--- OUTSIDE RECORDS SUMMARY | 2024-10-12 07:58 | XMS_ITS | Clinical Summary ---
Author Organization [facility] Address [address] [place] [address] Care Team Providers Care Home Inspector Name Role Phone Kavon Deleon MD Primary Care Provider + [phone] Allergies Active Allergy Reactions Criticality Noted Date Comments Estrogens Headache Low 11/20/2021 Medications meloxicam (Mobic) 15 MG tablet Take by mouth at night if needed. 4 Active pantoprazole (Protonix) 40 MG EC tablet Take 1 tablet (40 mg) by mouth 1 (one) time each day. 2 Active SUMAtriptan (Imitrex) 100 MG tablet TAKE 1 TABLET BY MOUTH AT ONSET OF MIGRAINE. MAY REPEAT ONCE AFTER 2 HOURS IF NEEDED 2 Active traZODone (Desyrel) 50 MG tablet TAKE ONE TABLET BY MOUTH EVERY night FOR SLEEP 3 Active ondansetron (Zofran) 4 MG tablet TAKE ONE TABLET BY MOUTH EVERY 8 HOURS NEEDED FOR NAUSEA AND VOMITING 2 Active ketoconazole (NIZOral) 2 % shampoo APPLY TOPICALLY TO THE AFFECTED AREA(S) three times WEEKLY 2 Active Ubrelvy 100 MG tablet 1 (one) time if needed. 3 Active Emgality 120 MG/ML injection every 30 (thirty) days. 3 Active azelastine (Astelin) 0.1 % nasal spray 4 Active fluconazole (Diflucan) 150 MG tablet at night if needed. 4 Active baclofen (Lioresal) 20 MG tablet TAKE ONE TABLET BY MOUTH EVERY DAY NEEDED MAY CAUSE DROWSINESS 5 Active valACYclovir (Valtrex) 1 g tablet Take 2 tablets by mouth 2 times a day. 5 Active tretinoin (Retin-A) 0.05 % cream APPLY TOPICALLY TO THE AFFECTED AREA(S) EVERY DAY AT BEDTIME 5 Active magnesium oxide (Mag-Ox) 400 mg tablet Take 1 tablet by mouth daily. Active polycarbophil (Fibercon) 625 MG tablet Take 1 tablet by mouth daily. Active folic acid (Folvite) 1 MG tabletIndicatio ns:JARED (juvenile idiopathic arthritis) (CMS/HCC) Take 1 tablet by mouth daily. 90 tablet 3 5 Active methotrexate 2.5 MG tabletIndicatio ns:JARED (juvenile idiopathic arthritis) (CMS/HCC) Take 6 tablets (15 mg total) by mouth 1 time per week. Follow directions carefully, and ask to explain any part you do not understand. Take exactly as directed. 78 tablet 1 5 Active Abatacept (Orencia ClickJect) 125 MG/ML solution auto-injectorIn dications:Rheum atoid arthritis involving multiple sites, unspecified whether rheumatoid factor present (CMS/HCC) Inject 1 mL under the skin 1 time per week. 4 mL 6 5 Active Abatacept (Orencia ClickJect) 125 MG/ML solution auto-injectorIn dications:Rheum atoid arthritis involving multiple sites, unspecified whether rheumatoid factor present (CMS/HCC) Inject 1 mL under the skin 1 time per week. 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 Knee pain 01/08/2015 Impingement syndrome, shoulder, left 06/25/2014 Migraine with aura and witho ut status migrainosus, not intractable 12/04/2012 Gastro-esophageal reflux disease without esophag itis 07/26/2012 Encounters Date Type Department Care Team Description 08/21/2024 2:10 PM EDT Office Visit [facility] Medicine Specialties [address] [place] [address] Kylee Fontana APRN JARED (juvenile idiopathic arthritis) [facility] 08/21/2024 Telephone [facility] Medicine Specialties [address] [place] [address] Sonny Chapa, PharmD 08/21/2024 Travel from Last 3 Months Immunizations Immunization Administration Dates Next Due Hep A, Adult 09/20/2018,03/06/2018 Hep B, Adolescent or Pediatric 05/23/2002 Influenza, injectable, quadrivalent 01/18/2018,1 Influenza, injectable, quadr ivalent, preservative free 01/18/2023,01/18/2019 Influenza, recombinant, quad rivalent, injectable, preservative free 02/02/2024,01/22/2022,02/09/2021,2019 Influenza, seasonal, injectable 01/10/2013 MMR 10/30/1982 Mumps 09/07/1993 PPD Skin Test (TB Skin Test) 11/22/2006, 11/24/2005,11/18/2004,2003,05/07/2003,11/21/2002,11/22/2001,1 Pneumococcal Conjugate PCV 13 02/04/2017 Tdap 12/03/2021,11/22/2006 Family History Medical History Relation Name Comments Diabetes Father Dieudonne Hypertension Father Dieudonne Retinal detachment Father Dieudonne Macular degeneration Maternal Grandmother Rheumatologic disease Mother Bridgette Coronary artery disease Other 1 Heart disease Other 2 Conversions - Other Paternal Grandfather FHx: cataracts Breast cancer Paternal Grandmother Breast cancer Sister Deirdre Cancer Sister Deirdre Anesthesia problems Neg Hx Malig Hyperthermia Neg Hx Relation Name Status Comments Father Dieudonne Maternal Grandmother Mother Bridgette Alive Other 1 Other 2 Paternal Grandfather Paternal Grandmother Sister Deirdre Social History Tobacco Use Types Packs/Day Years Used Date Smoking Tobacco: Never Passive Smoke Exposure: Never Smokeless Tobacco: Never Tobacco Cessation:Counseling Given: Not Answered Alcohol Use Standard Drinks/Week Comments No 0 [...] on file Sexual Orientation Not on file Last Filed Vital Signs Vital Sign Reading [...] Mass Index 21.85 08/21/2024 2:43 PM EDT Plan of Treatment Upcoming Encounters Date Type Department Care Team (Late st Contact Info) Description 02/22/2025 2:10 PM EST Office Visit [facility] Medicine Special[facility] [address] [place] [address] Kylee Fontana, EXPLOSIVE ORDNANCE TECHNICIAN [address] [place] [address] Health Maintenance Due Date Last Done Comments [facility]-HIV Screening 1981 [facility]-Hepatitis C Screening 1981 [facility]-/Child/Adol SDOH Screenings 1981 [facility]-Varicella Vaccines (1 of 2 - 13+ 2-dose series) 1994 HPV Vaccines (1 - 3-dose series) 1996 [facility]- SDOH Screenings 07/30/1999 [facility]-Adult SDOH Screenings 07/30/1999 [facility]-Zoster Vaccines (1 of 2) 2000 [facility]-Hepatitis B Vaccines (2 of 3 - 19+ 3-dose series) 06/20/2002 05/23/2002 [facility]-Pap Smear 05/28/2019 05/28/2016, 09/17, 12/03/2009, Additional history exists [facility]-Cervical Cancer Screening 05/28/2021 [facility]-HPV/Cotest 05/28/2021 05/28/2016, 09/17, 12/03/2009, Additional history exists [id number] Vaccine ( season) 2023 12/24/2020, 05/23/2020, 04/21/2020 [facility]-Depression Screening 08/21/2025 08/21/2024, 09/2024 [facility]-DTaP,Tdap,and Td Vaccines (3 - Td or Tdap) 12/04/2031 12/03/2021, 11/22/2006 [facility]-Pneumococcal Vaccine: Pediatrics (0 to 5 Years) and At-Risk Patients (6 to 49 Years) Aged Out 02/04/2017 No longer eligible based on patient's age to complete this topic [facility]-Hepatitis A Vaccines Aged Out 09/20/2018, 02/16 No longer eligible based on patient's age to complete this topic [facility]-Influenza Vaccine Completed 02/02/2024 , 01/18/2023, 01/22/2022, Additional history exists [facility]-HIB Vaccines Aged Out No longer e ligible based on patient's age to complete this topic [facility]-IPV Vaccines Aged Out No longer e ligible based on patient's age to complete this topic [facility]-Rotavirus Vaccines Aged Out No lo nger eligible based on patient's age to complete this topic Medical Devices Implanted Type Area Diagnostics Sales Developer Device Identifier Shelf Expiration Date Model / Serial / Lot [employer] Mcp Finger Implanted:Qty: 1 on 01/26/2023 by Krissy Carnes MD at [facility] Left: Fingers [employer] 05/18/2024 [facility]-500-0 5-[id number] / / [id number] Description:NONFILE Procedures Procedure Name Priority Date/Time Associated Diagnosis Comments CYTO DATA CONVERSION Routine 05/28/2016 12:00 AM EST from Last 3 Months or Most Recently Relevant to Health Maintenance Results * Cytology (05/28/2016 12:00 AM EST) 05/28/2016 05/31/2016 10: 03 AM EST Narrative SUNQUEST - 06/03/2016 3:52 PM EST [facility] MR #: [id number] [facility] JONO [place], [place] [address] 1980 (Age: 35) FW Collect Date: 05/28/2016 00:00 Receipt Date: 05/31/2016 10:03 Page 1 DEPARTMENT OF PATHOLOGY AND LABORATORY MEDICINE CYTOPATHOLOGY REPORT Email: [email or web address] ATTENDING MD/Practitioner: Maty Cleveland Service: OBE Location: [facility] Reported: 06/03/2016 15:52 Collected: 05/28/2016 00:00 INTERPRETATION A. THIN PREP (CERVICAL/VAGINAL): NEGATIVE FOR INTRAEPITHELIAL LESION OR MALIGNANCY. SATISFACTORY FOR EVALUATION; ENDOCERVICAL/ TRANSFORMATION ZONE COMPONENT PRESENT. Slide scanned and imaged by [employer] ThinPrep Imaging System with manual review of all selected marte. Electronically Signed Out By DARIELA Diaz (ASCP) DARIELA Diaz (ASCP) Cervical cytology is a screening test primarily for squamous cancers and precursors and has associated false negative and positive results. New technologies such as liquid based sampling may decrease but will not eliminate all false negative results. Regular screening and follow-up of unexplained clinical signs and symptoms are recommended to minimize false negative results. Please see the ASCCP website (www.asccp.org) for followup recommendations. If HPV testing was requested, correlation with the results is suggested (please call Microbiology at [phone] for results). CLINICAL INFORMATION: Menstrual History: Cyclic Date of Last Menstrual Period: 05/07/2016 Other Clinical Conditions: HPV testing requested. Please correlate with HPV results (see microbiology report, or call [phone]) and refer to clinical guidelines for additional management (www.asccp.org). SPECIMEN DESCRIPTION: A: THIN PREP (CERVICAL/VAGINAL) THIN PREP PROCESS CELLULAR ENHANCEMENT ICD: F: A; RT IMAGE [id number] SNOMED CODES: A; [id number] In cases where a pathologist has signed out the report, the service has been rendered in part by a resident. The signing pathologist has performed and is responsible for the reported pathologic evaluation. us Meena Hicks EXPLOSIVE ORDNANCE TECHNICIAN LAB PATHOLOGY ORDERABLES F inal Result SUNQUEST from Last 3 Months or Most Recently Relevant to Health Maintenance Insurance [facility] Care Teams Home Inspector Relationship Specialty Start Date End Date Kavon Deleon MD [address] [place] [address] PCP - General 08/29/20
--- OUTSIDE RECORDS SUMMARY | 2024-10-12 07:58 | XMS_ITS | Encounter Summary ---
Author Organization [facility] Address [address] [place] [address] Care Team Providers Care Squirrel Worker Name Role Phone Kavon Deleon MD Primary Care Provider [phone] Encounter Details Date Type Department Care Team (Latest Contact Info) Description 08/21/2024 Travel Social History Tobacco Use Types Packs/Day Years [...] PM EDT Louise Rolle RN Patient Health Questionnaire -2 Score 0 [...] overeating Not at all 08/21/2024 2:45 PM LORENZOT Louise Rolle RN Feeling bad about yourself - or that you are a failure or have let yourself or your family down Not at all 08/21/2024 2:45 PM EDT Louise Rolle RN Trouble concentrating on things, [...] Not difficult at all 08/21/2024 2:45 PM EDLouise Solomon RN documented as of this encounter Plan of Treatment Upcoming Encounters Date Type Department Care Team (Late st Contact Info) Description 02/22/2025 2:10 PM EST Office Visit [place] [facility] Medicine Specialties [address] [place] [address] Kylee Fontana APRN [address] [place] [address] documented as of this encounter Visit Diagnoses Not on filedocumented in this encounter Additional Health Concerns Assessment Noted Time PHQ-9 Depression Total Score: 3 08/22/19 25 2:45 PM EDT A fall risk assessment has been complete d for the patient 08/21/2024 2:45 PM EDT A Body Mass Index follow-up plan has been documented for the patient 08/21/2024 3:15 PM EDT documented as of this encounter Care Teams Squirrel Worker Relationship Specialty Start Date End Date Kavon Deleon MD [address] [place] [id number] PCP - General 08/29/20 documented as of this encounter
--- OUTSIDE RECORDS SUMMARY | 2024-10-12 07:59 | XMS_ITS | Encounter Summary ---
Author Organization Healthcare Address [address] [place] [address] Care Team Providers Care Grinding Wheel Dresser Name Role Phone Kavon Deleon MD Primary Care Provider [phone] Encounter Details Date Type Department Care Team (Late Contact Info) Description 02/17/2024 Orders Only External Location [address] [place] [address] Kavon Deleon MD [address] [place] [address] Social History Tobacco Use Types Packs/Day Years Used Date Smoking Tobacco: Never Passive Smoke Exposure: Never Smokeless Tobacco: Never Alcohol Use Standard Drinks/Week Comments No 0 (1 standard drink = 0.6 oz pure alcohol) Alcoholic Drinks/day: Never Drank Alcohol PHQ-2 Answer Date Recorded Patient Health Questionnaire-2 Score 0 02/21/2024 PHQ-2A Answer Date Recorded Patient Health Questionnaire-2 Score 0 03/23/2022 Comments No Sex and Gender Information Value Date Recorded Sex Assigned at Not on file Legal Sex Female 8:10 PM EDT Gender Identity Not on file Sexual Orientation Not on file documented as of this encounter Plan of Treatment Upcoming Encounters Date Type Department Care Team (Late Contact Info) Description 02/22/2025 2:10 PM EST Office Visit [place] [facility] Medicine Specialties [address] [place] [address] Kylee Fontana M, SPECIAL EVENTS MANAGER [address] [place] [address] documented as of this encounter Procedures Procedure Name Priority Date/Time Associated Diagnosis Comments MR OUTSIDE IMAGES 02/17/2024 12:58 PM EDT documented in this encounter Results * MR transfer of outside films (02/17/2024 12:58 PM EDT) Anatomical Region Laterality Modality Magnetic Resonan ce 02/17/2024 12:5 8 PM EDT us Kavon Deleon MD IMG MRI PROCEDURES Final Res ult documented in this encounter Visit Diagnoses Not on filedocumented in this encounter Additional Health Concerns Assessment Noted Time A fall risk assessment has been complete d for the patient 12/06/2023 2:41 PM EDT A Body Mass Index follow-up plan has been documented for the patient 01/18/2024 4:59 PM EDT documented as of this encounter Care Teams Grinding Wheel Dresser Relationship Specialty Start Date End Date Kavon Deleon MD [address] [place] [address] PCP - General 08/29/20 documented as of this encounter
--- OUTSIDE RECORDS SUMMARY | 2024-10-12 07:59 | XMS_ITS | Encounter Summary ---
Author Organization [facility] Address [address] [place] [address] Care Team Providers Care Aviation Medicine Specialist Name Role Phone Kavon Deleon MD Primary Care Provider [phone] Encounter Details Date Type Department Care Team (Late Contact Info) Description 09/07/2023 Orders Only External Location [address] [place] [address] Provider, External Social History Tobacco Use Types Packs/Day Years Used Date Smoking Tobacco: Never Passive Smoke Exposure: Never Smokeless Tobacco: Never Alcohol Use Standard Drinks/Week Comments No 0 (1 standard drink = 0.6 oz pure alcohol) Alcoholic Drinks/day: Never Drank Alcohol PHQ-2 Answer Date Recorded Patient Health Questionnaire-2 Score 0 08/16/2023 PHQ-2A Answer Date Recorded Patient Health Questionnaire-2 [...] Description 02/22/2025 2:10 PM EST Office Visit [place] [facility] Medicine Specialties [address] [place] [address] Kylee Fontana, SURGICAL COORDINATOR [address] [place] [address] documented as of this encounter Procedures Procedure Name Priority Date/Time Associated Diagnosis Comments MR NEURO OUTSIDE IMAGES 09/07/2023 4:21 PM EDT documented in this encounter Results * MR NEURO OUTSIDE IMAGES (09/07/2023 4:21 PM EDT) Anatomical Region Laterality Modality Magnetic Resonan ce 09/07/2023 4:21 PM EDT us External Provider IMG MRI PROCEDURES Final Resul t documented in this encounter Visit Diagnoses Not on filedocumented in this encounter Additional Health Concerns Assessment Noted Time A fall risk assessment has been complete d for the patient 08/16/2023 2:15 PM EDT A Body Mass Index follow-up plan has been documented for the patient 08/16/2023 2:49 PM EDT documented as of this encounter Care Teams Aviation Medicine Specialist Relationship Specialty Start Date End Date Kavon Deleon MD [address] [place] [address] PCP - General 08/29/20 documented as of this encounter
--- NOTE | 2024-10-12 08:00 | MR_ITS ---
FINAL REPORT TECHNIQUE: Multiplanar MR without contrast CLINICAL HISTORY: FACIAL PARESTHESIA, MIGRAINE, PALPITATIONS COMPARISON: None FINDINGS: Diffusion sequences show no signal abnormality to indicate acute infarct. No mass, hemorrhage or edema is seen. Ventricles are normal. Major vascular flow voids are intact. IMPRESSION: Unremarkable MR of the brain without contrast Reviewed, Interpreted and Dictated by Stephie Stein MD Transcribed by Betty Solis Authenticated and [facility]
--- NOTE | 2024-10-12 08:00 | MR_ITS ---
FINAL REPORT TECHNIQUE: 3-D [id number] sequences without contrast CLINICAL HISTORY: FACIAL PARESTHESIA/MIGRAINE/PALPATATIONS/EDS COMPARISON: None FINDINGS: The distal internal carotid arteries are unremarkable. MCAs and ACAs are unremarkable. Basilar artery is widely patent. kennel assistant are intact. No aneurysm is seen. IMPRESSION: Unremarkable MRA head Reviewed, Interpreted and Dictated by Stephie Stein MD Transcribed by Betty Solis Authenticated and [facility]
== END 2024-10-12 23:59 | disposition home or self-care (01) ==
LOC: RAD 07:56
PROVIDERS: PCP Internal Medicine Adolescent Medicine; Visit Provider Internal Medicine Adolescent Medicine
DX: Q79.60 Ehlers-Danlos syndrome, unspecified (principal); G43.109 Migraine with aura, not intractable, without status migrainosus; M06.9 Rheumatoid arthritis, unspecified; R20.2 Paresthesia of skin; R00.2 Palpitations
CPT/HCPCS: 70544; 70551; 93306

== ENCOUNTER 2024-12-04 09:58 | Outpatient (CLI) | payer BC, OTHER, SELFPAY ==
--- NOTE | 2024-12-04 10:01 | US_ITS ---
PROCEDURE: US TRANSVAGINAL CLINICAL INDICATION: RLQ PAIN COMPARISON: US US TRANSVAGINAL from 04/15/2023 US US TRANSVAGINAL from 08/02/2023 FINDINGS: Transvaginal sonographic images of the pelvis were obtained. UTERUS: 8.4cm x 5.0cmx 5.5cm retroverted with a combined endometrial thickness of 8.5mm. The endometrium is more apparent post ablation. There is a trace amount of fluid in the lower uterine segment. There is a 1.8 cm nabothian cyst in the cervix. There is trace fluid within the cervix. There is a hyperechoic area with posterior shadowing. This is adjacent to the posterior endometrium within the posterior myometrium and measures 0.8 cm in size. LEFT OVARY: [id number] with a volume of 9.7ml. There is a follicle in the left ovary that measures 2.1 cm x 1.1 cm x 1.8 cm Is a 2nd small follicle measuring 1.2 cm. There continue to be miniscule hyperechoic areas within the left ovary. RIGHT OVARY: 3cmx [id number] with a volume of 7.6ml. There are several small peripheral follicles the largest being 1.4 cm. Both ovaries are seen and appear normal. Doppler flow to both ovaries are seen. There is trace fluid in the cul-de-sac. IMPRESSION: 1. Retroverted uterus normal in shape and size. The endometrium is 8.5 mm and is more apparent today post ablation. Within the posterior myometrium there is a 8 mm hyperechoic area with posterior shadowing. This was seen previously but has grown in size. 2. The left ovary is seen and contains 2 follicles measuring 2.1 cm and 1.2 cm. The right ovary has several small peripheral follicles. 3. There is trace fluid in the cul-de-sac. Dictated by: Chavez Petersen MD 12/05/2024 06:44 Chavez Petersen MD in OV 12/05/2024 06:44
--- OUTSIDE RECORDS SUMMARY | 2024-12-04 10:04 | XMS_ITS | Encounter Summary ---
Author Organization [facility] Address [address] [place] [address] Care Team Providers Care Government Affairs Researcher Name Role Phone Kavon Deleon MD Primary Care Provider [phone] Encounter Details Date Type Department Care Team (Late st Contact Info) Description 10/05/2024 Telephone [facility] NE[facility] [address] [facility] [address] [place] [address] Otoniel Clarke MD [address] [facility] [address] [place] [address] Social History Tobacco Use Types Packs/Day Years Used Date Smoking Tobacco: Never Passive Smoke Exposure: Never Smokeless Tobacco: Never Alcohol Use Standard Drinks/Week Comments Never 0 (1 standard drink = 0.6 oz pur e alcohol) AUDIT-C Answer Date Recorded Q1: How often do you have a drink containing alc ohol? Never 01/06/2021 Average Number of Drinks Not on file 021 Frequency of Binge Drinking Not on file 12/18 Comments Unknown Sex and Gender Information Value Date Recorded Sex Assigned at Not on file Legal Sex Female 9:19 AM EDT Gender Identity Not on file Sexual Orientation Not on file documented as of this encounter Miscellaneous Notes * Telephone Encounter - Lex Kitchen MA - 10/05/2024 3:25 PM EDT Mailing letter to home also documented in this encounter Plan of Treatment Upcoming Encounters Date Type Department Care Team (Late st Contact Info) Description 04/30/2025 3:15 PM EST Office Visit [facility] NEUROLOGY [address] [facility] [address] [place] [address] Otoniel Clarke MD [address] [facility] [address] [place] [address] documented as of this encounter Visit Diagnoses Not on filedocumented in this encounter Care Teams Government Affairs Researcher Relationship Specialty Start Date End Date Kavon Deleon MD [address] [facility] [address] [facility] [address] [place] [address] PCP - General Adolescent Medicine 07/22/20 documented as of this encounter
--- OUTSIDE RECORDS SUMMARY | 2024-12-04 10:04 | XMS_ITS | Clinical Summary ---
Author Organization [facility] [place] [facility] Address [address] [place] [address] Care Team Providers Care Insolvency Consultant Name Role Phone Kavon Deleon MD Primary Care Provider + [phone] Allergies Active Allergy Reactions Criticality Noted Date Comments Estrogens Other (See Comments) 11/11/2020 Complicated migraines Medications meloxicam (MOBIC) 15 MG tablet TAKE ONE TABLET BY MOUTH EVERY DAY NEEDED --TAKE WITH FOOD-- Active spironolactone (ALDACTONE) 50 MG tablet Take 1 tablet by mouth Daily. Active magnesium oxide (MAGOX) 400 (241.3 Mg) MG tablet tablet Take 1 tablet by mouth Daily. Active fexofenadine (GUERO) 180 MG tablet Take 1 tablet by mouth Daily. Active Abatacept (Orencia ClickJect) 125 MG/ML solution auto-injector Inject 1 mL under the skin into the appropriate area as directed Every 7 (Seven) Days. Active pantoprazole (PROTONIX) 40 MG EC tablet Take 1 tablet by mouth Daily. Active folic acid (FOLVITE) 1 MG tablet Take 1 tablet by mouth Daily. Active promethazine (PHENERGAN) 25 MG tablet TAKE ONE TABLET BY MOUTH EVERY 6 HOURS MAY CAUSE DROWSINESS Active ondansetron (ZOFRAN) 4 MG tablet Take 1 tablet by mouth Every 8 (Eight) Hours As Needed. Active gabapentin (Neurontin) 300 MG capsuleIndicat ions:Intractab le chronic migraine without aura and without status migrainosus Take 1 capsule by mouth As Needed (Pain) for up to 30 days. 30 capsule 1 022 Active methotrexate 2.5 MG tablet Take 6 tablets by mouth 1 (One) Time Per Week. Active valACYclovir (VALTREX) 500 MG tablet 1 tablet Daily As Needed. 023 Active Ubrelvy 100 MG tablet Take 1 tablet by mouth As Needed (migraine). 10 tablet 2 023 Active Zavegepant HCl 10 MG/ACT solution into the nostril(s) as directed by provider As Needed. Active nadolol (CORGARD) 20 MG tablet Take 1 tablet by mouth Daily. Active baclofen (LIORESAL) 20 MG tablet TAKE ONE TABLET BY MOUTH EVERY DAY NEEDED MAY CAUSE DROWSINESS Active polycarbophil 625 MG tablet tablet Take 1 tablet by mouth Daily. Active fluconazole (DIFLUCAN) 150 MG tablet Take 1 tablet by mouth 1 (One) Time Per Week. Active tretinoin (RETIN-A) 0.05 % cream APPLY TOPICALLY TO THE AFFECTED AREA(S) EVERY DAY AT BEDTIME Active pregabalin (Lyrica) 50 MG capsule Take 1 capsule by mouth every night at bedtime for 30 days. 30 capsule 3 025 Active SUMAtriptan (IMITREX) 100 MG tablet TAKE 1 TABLET BY MOUTH AT ONSET OF MIGRAINE. MAY REPEAT ONCE AFTER 2 HOURS IF NEEDED (MAX OF 2 PER DAY) 10 tablet 5 025 Active galcanezumab-g nlm (Emgality) 120 MG/ML auto-injector pen Inject 1 mL under the skin into the appropriate area as directed Every 30 (Thirty) Days. 3 mL 3 025 Active Emgality 120 MG/ML auto-injector pen INJECT 120 MG SUBCUTANEOUSLY INTO THE APPROPRIATE AREA DIRECTED EVERY 30 DAYS DIRECTED 3 mL 3 025 2024 Discontinued(R eorder) SUMAtriptan (IMITREX) 100 MG tablet TAKE 1 TABLET BY MOUTH AT ONSET OF MIGRAINE. MAY REPEAT ONCE AFTER 2 HOURS IF NEEDED (MAX OF 2 PER DAY) 10 tablet 5 025 2024 Discontinued Active Problems Problem Noted Date Diagnosed Date Intractable chronic migraine without aura and without status migrainosus 10/12/2022 Encounters Date Type Department Care Team Description 11/11/2024 Refill [facility] [address] [place] [id number] Otoniel Clarke MD 10/05/2024 Telephone [facility] [address] [place] [address] Otoniel Clarke MD from Last 3 Months Immunizations Immunization Administration Dates Next Due 31-influenza Vac Quardvalent Preservativ 01/18/2018,02/03/2017 Flublok 18+yrs 01/22/2022,02/09/2021,01/23/2020 Fluzone (or Fluarix & Flulav al for VFC) >6mos 01/18/2023,01/18/2019 Hepatitis A 09/20/2018,03/06/2018 Influenza Seasonal Injectable 01/10/2013 MMR 10/30/1982 Mumps 09/07/1993 PPD Test 11/22/2006, 6,11/18/2004,2003,05/07/2003,11/21/2002,11/22/2001,1 Pneumococcal Conjugate 13-Va lent (PCV13) 02/04/2017 Tdap 12/03/2021,11/22/2006 Family History Medical History Relation Name Comments Alopecia Father Diabetes Father Hypertension Father Cancer Maternal Grandfather Dementia Paternal Grandfather Hardy Law Vascu lar dementia Heart disease Paternal Grandfather Hardy Thanh Stroke Paternal Grandfather Hardy Grahamer Breast cancer Sister Relation Name Status Comments Father Maternal Grandfather Paternal Grandfather Hardy Grahamer Sister Social History Tobacco Use Types Packs/Day Years Used Date Smoking Tobacco: Never Passive Smoke Exposure: Never Smokeless Tobacco: Never Tobacco Cessation:Counseling Given: Not Answered Alcohol Use Standard Drinks/Week Comments Never 0 [...] Sign Reading Time Taken Comments Blood Pressure 116/72 08/21/2024 3:47 PM EDT Pulse 80 08/21/2024 3:47 PM EDT Temperature - - Respiratory Rate 20 08/21/2024 3:47 PM EDT Oxygen Saturation 99% 08/21/2024 3:47 PM EDT Inhaled Oxygen Concentration - - Weight 49.9 kg (110 lb) 08/21/2024 3:47 PM EDT Height 157.5 cm (5' 2.01 ) 08/21/2024 3:47 PM ED T Body Mass Index 20.11 08/21/2024 3:47 PM EDT Plan of Treatment Upcoming Encounters Date Type Department Care Team (Late st Contact Info) Description 04/30/2025 3:15 PM EST Office Visit [facility] [address] [place] [id number] Otoniel Clarke MD [address] [place] [address] Health Maintenance Due Date Last Done Comments Annual Gynecologic Pelvic and Breast Exam 1980 PAP SMEAR 2002 ANNUAL PHYSICAL 11/11/2020 HEPATITIS C SCREENING 11/11/2020 COVID-19 Vaccine ( season) 2023 12/24/2020, 05/23/2020, 04/21/2020 INFLUENZA VACCINE 01/16/2025 02/02/2024, , 01/22/2022, Additional history exists MAMMOGRAM 02/13/2026 02/14/2024, 01/17, 01/14/2023, Additional history exists TDAP/TD VACCINES (3 - Td or Tdap) 12/04/2031 12/03/2021, 11/22/2006 Pneumococcal Vaccine 0-49 Aged Out 02/04/2017 No longer eligible based on patient's age to complete this topic Insurance [facility] Care Teams Insolvency Consultant Relationship Specialty Start Date End Date Kavon Deleon MD [address] [facility] [address] [place] [address] PCP - General Adolescent Medicine 07/22/20
--- OUTSIDE RECORDS SUMMARY | 2024-12-04 10:04 | XMS_ITS | Encounter Summary ---
Author Organization Healthcare Address [address] [place] [address] Care Team Providers Care Cmo Name Role Phone Kavon Deleon MD Primary Care Provider [phone] Encounter Details Date Type Department Care Team (Late st Contact Info) Description 10/26/2024 Orders Only [facility] Medicine Specialties [address] [place] [address] ProviderColt MD [address] [place] [id number] Social History Tobacco Use Types Packs/Day Years [...] Description 02/22/2025 2:10 PM EST Office Visit [facility] Medicine Specialties [address] [place] [address] Kylee Fontana M, SIDING COREBOARD INSPECTOR [address] [place] [address] documented as of this encounter Procedures Procedure Name Priority Date/Time Associated Diagnosis Comments COMPLETE METABOLIC PROFILE (CMP) Routine 10/26/2024 5:05 PM EDT CBC WITH AUTO DIFFERENTIAL Routine 10/26/2024 5:05 PM EDT documented in this encounter Results * COMPLETE METABOLIC PROFILE (CMP) (10/26/2024 5:05 PM EDT) [facility] MD LAB BLOOD ORDERABLES F inal Result * CBC and Differential (10/26/2024 5:05 PM EDT) Blood Venous blood specimen / Unknown us [facility] Provider MD LAB BLOOD ORDERABLES F inal Result documented in this encounter Visit Diagnoses Not [...] documented as of this encounter Care Teams Cmo Relationship Specialty Start Date End Date Kavon Deleon MD [address] [place] [id number] PCP - General 08/29/20 documented as of this encounter
--- OUTSIDE RECORDS SUMMARY | 2024-12-04 10:04 | XMS_ITS ---
Author Organization [facility] Address [address] [place] [address] Care Team Providers Care Migratory Worker Name Role Phone Kavon Deleon MD Primary Care Provider [phone] Chronic Migraine Status:Under Review (Enrolling) Start date:11/28/2024 Enrollment reason:Converted fill to Current support & services provided:Clinical Assessment, Refill Coordination , Benefits Investigation, [facility] Dispensing Linked medications:Ubrogepant (Active) Case Team Name Relationship Phone Otoniel Clarke MD Consulting Physician Continued Care and Services Coordination
--- OUTSIDE RECORDS SUMMARY | 2024-12-04 10:04 | XMS_ITS | Encounter Summary ---
[facility] Address [address] [place] [address] Care Team Providers Care Ecommerce Marketing Specialist Name Role Phone Kavon Deleon MD Primary Care Provider + [phone] Reason for Visit * Reason Comments Med Refill Encounter Details Date Type Department Care Team (Late st Contact Info) Description 11/11/[address] [facility] [address] [facility] [address] [place] [address] Otoniel Clarke MD [address] [facility] [address] [place] [address] Social History Tobacco Use Types [...] encounter Miscellaneous Notes * Telephone Encounter - eLx Kitchen MA - 11/12/2024 9:24 AM EDT Rx Refill Note Requested Prescriptions Pending Prescriptions Disp Refills SUMAtriptan (IMITREX) 100 MG tablet [Pharmacy Med Name: sumatriptan 100 mg tablet] 10 tablet 5 Sig: TAKE 1 TABLET BY MOUTH AT ONSET OF MIGRAINE. MAY REPEAT ONCE AFTER 2 HOURS IF NEEDED (MAX OF 2PER DAY) Last filled: 04/26/24 #10 with 5 refills Last office visit with prescribing clinician: 08/21/2024 Next office visit with prescribing clinician: 04/30/2025 Lex Kitchen MA 11/12/24, 09:25 EDT documented in this encounter Plan of Treatment Upcoming Encounters Date Type Department Care Team (Late st Contact Info) Description 04/30/2025 3:15 PM EST Office Visit [facility] [address] [facility] [address] [place] [address] Otoniel Clarke MD [address] [facility] [address] [place] [address] documented as of this encounter Visit Diagnoses Not on filedocumented in this encounter Care Teams Ecommerce Marketing Specialist Relationship Specialty Start Date End Date Kavon Deleon MD [address] [facility] [address] [facility] [address] [place] [address] PCP - General Adolescent Medicine 07/22/20 documented as of this encounter
--- OUTSIDE RECORDS SUMMARY | 2024-12-04 10:04 | XMS_ITS ---
Author Organization [facility] Address [address] [place] [address] Care Team Providers Care Sterilization Specialist Name Role Phone Kavon Deleon MD Primary Care Provider [phone] Chronic Migraine - External Program Status:Enrolled (Active) Start date:10/12/2022 Enrollment date:10/12/2022 Enrollment reason:Identified as being on target medication Current support & services provided:Refill Coordination , Benefits Investigation, Prior Authorization, External Pharmacy Dispensing Linked medications:Galcanezumab-gnlm (Active) Linked problems:Intractable chronic migraine without aura and without status migrainosus (Active) Case Team Name Relationship Phone Otoniel Clarke MD Consulting Physician Continued Care and Services Coordination
--- OUTSIDE RECORDS SUMMARY | 2024-12-04 10:04 | XMS_ITS | Encounter Summary ---
Author Organization Healthcare Address [address] [place] [address] Care Team Providers Care Cigarette Paper Tester Name Role Phone Kavon Deleon MD Primary Care Provider [phone] Encounter Details Date Type Department Care Team (Late Contact Info) Description 02/17/2024 Orders Only External Location [address] [place] [address] Kavon Deleon MD [address] [place] [address] Social History Tobacco Use Types Packs/Day Years [...] Description 02/22/2025 2:10 PM EST Office Visit [facility] [address] [place] [address] Kylee Fontana M, BRA[employer]ER [employer]IC [address] [place] [address] documented as of this encounter Procedures Procedure [...] documented as of this encounter Care Teams Cigarette Paper Tester Relationship Specialty Start Date End Date Kavon Deleon MD [address] [place] [address] PCP - General 08/29/20 documented as of this encounter
--- OUTSIDE RECORDS SUMMARY | 2024-12-04 10:04 | XMS_ITS | Encounter Summary ---
Author Organization [facility] Address [address] [place] [address] Care Team Providers Care Hat And Cap Drying Room Attendant Name Role Phone Kavon Deleon MD Primary Care Provider [phone] Encounter Details Date Type Department Care Team (Late Contact Info) Description 09/07/2023 Orders Only External Location [address] [place] [address] Provider, External Social History Tobacco Use Types [...] Description 02/22/2025 2:10 PM EST Office Visit [facility] Special[facility] [address] [place] [address] Kylee Fontana, BLACK BELT [address] [place] [address] documented as of this encounter Procedures Procedure [...] documented as of this encounter Care Teams Hat And Cap Drying Room Attendant Relationship Specialty Start Date End Date Kavon Deleon MD [address] [place] [address] PCP - General 08/29/20 documented as of this encounter
--- OUTSIDE RECORDS SUMMARY | 2024-12-04 10:04 | XMS_ITS | Clinical Summary ---
Author Organization [facility] Address [address] [place] [address] Care Team Providers Care Bartenders Name Role Phone Kavon Deleon MD Primary Care Provider + [phone] Allergies Active Allergy Reactions Criticality Noted Date [...] daily. Active folic acid (Folvite) 1 MG tabletIndication s:JARED (juvenile idiopathic arthritis) (CMS/HCC) Take 1 tablet by mouth daily. 90 tablet 3 5 Active methotrexate 2.5 MG tabletIndication s:JARED (juvenile idiopathic arthritis) (CMS/HCC) Take 6 tablets (15 mg total) by mouth 1 time per week. Follow directions carefully, and ask to explain any part you do not understand. Take exactly as directed. 78 tablet 1 5 Active Abatacept (Orencia ClickJect) 125 MG/ML solution auto-injectorInd ications:Rheumat oid arthritis involving multiple sites, unspecified whether rheumatoid factor present (CMS/HCC) Inject 1 mL under the skin 1 time per week. 4 mL 6 5 Active Active Problems Problem Noted Date Diagnosed Date [...] Encounters Date Type Department Care Team Description 10/26/2024 Orders Only [facility] Medicine Specialties [address] [place] [address] Provider, MD Colt from Last 3 Months Immunizations Immunization Administration [...] Name Comments Diabetes Father Dieudonne Hypertension Father Dieudnone Retinal detachment Father Dieudonne Macular degeneration Maternal [...] Description 02/22/2025 2:10 PM EST Office Visit [facility] [address], [address] [place] [address] Kylee Fontana M, SPLICER OPERATOR [address] [place] [address] Health Maintenance Due Date Last Done Comments [facility]-HIV Screening 1981 [facility]-Hepatitis C Screening 1981 [facility]-Infant/Child/Adol SDOH Screenings 1981 [facility]-Varicella Vaccines (1 of 2 - 13+ 2-dose series) 1994 [facility]- SDOH Screenings 07/30/1999 [facility]-Adult SDOH Screenings 07/30/1999 [facility]-Zoster Vaccines (1 of 2) 2000 [facility]-Hepatitis B Vaccines (2 of 3 - 19+ 3-dose series) 06/20/2002 05/23/2002 HPV Vaccines (1 - 3-dose SCDM series) 2008 [facility]-Pap Smear 05/28/2019 05/28/2016, 09/17, 12/03/2009, Additional history exists [facility]-Cervical Cancer Screening 05/28/2021 [facility]-HPV/Cotest 05/28/2021 05/28/2016, 05/19, 10/14/2011, Additional history exists [id number]-68 Vaccine ( season) 2023 12/24/2020, 05/23/2020, 04/21/2020 [facility]-Influenza Vaccine (#1) 12/17/202402/01, 01/18/2023, 01/22/2022, Additional history exists [facility]-Depression Screening 08/21/2025 08/21/2024, 09/2024 [facility]-DTaP,Tdap,and Td Vaccines (3 - Td or Tdap) 12/04/2031 12/03/2021, 11/22/2006 [facility]-Pneumococcal Vaccine: Pediatrics (0 to 5 Years) and At-Risk Patients (6 to 49 Years) Aged Out 02/04/2017 No longer eligible based on patient's age to complete this topic [facility]-Hepatitis A Vaccines Aged Out 09/20/2018, 02/16 No longer eligible based on patient's age to complete this topic [facility]-HIB Vaccines Aged Out No longer e ligible based on patient's age to complete this topic [facility]-IPV Vaccines Aged Out No longer e ligible based on patient's age to complete this topic [facility]-Rotavirus Vaccines Aged Out No lo nger eligible based on patient's age to complete this topic Medical Devices Implanted Type Area Terrazzo Worker Apprentice Device Identifier Shelf Expiration Date Model / Serial / Lot [employer] Mcp Finger Implanted:Qty: 1 on 01/26/2023 by Krissy Carnes MD at [facility] Left: Fingers [employer] 05/18/2024 [id number] / / [id number] Description:NONFILE Procedures Procedure Name Priority Date/Time Associated Diagnosis Comments COMPLETE METABOLIC PROFILE (CMP) Routine 10/26/2024 5:05 PM EDT CBC WITH AUTO DIFFERENTIAL Routine 10/26/2024 5:05 PM EDT CYTO DATA CONVERSION Routine 05/28/2016 12:00 AM EST from Last 3 Months or Most Recently Relevant to Health Maintenance Results * COMPLETE METABOLIC PROFILE (CMP) (10/26/2024 5:05 PM EDT) [facility] Provider LAB BLOOD ORDERABLES F inal Result * CBC and Differential (10/26/2024 5:05 PM EDT) Blood Venous blood specimen / Unknown [facility] Provider LAB BLOOD ORDERABLES F inal Result * Cytology (05/28/2016 12:00 AM EST) 05/28/2016 05/31/2016 10: 03 AM EST Narrative [facility]QUEST - 06/03/2016 3:52 PM EST [facility]: [id number] [facility] [place] [place] [address] 1980 (Age: 35) FW Collect Date: 05/28/2016 00:00 Receipt Date: 05/31/2016 10:03 Page 1 DEPARTMENT OF PATHOLOGY AND LABORATORY MEDICINE CYTOPATHOLOGY REPORT Email: [phone] ATTENDING MD/Practitioner: Maty Cleveland Service: [place]BE [place] [facility] [place]orted: 06/03/2016 15:52 Collected: 05/28/2016 00:00 INTERPRETATION A. THIN PREP (CERVICAL/VAGINAL): NEGATIVE FOR INTRAEPITHELIAL LESION OR MALIGNANCY. SATISFACTORY FOR EVALUATION; ENDOCERVICAL/ TRANSFORMATION ZONE COMPONENT PRESENT. Slide scanned and imaged by [employer] ThinPrep Imaging System with manual review of [...] results is suggested (please call Microbiology at [phone] for results). CLINICAL INFORMATION: Menstrual History: Cyclic Date of Last Menstrual Period: 05/07/2016 Other Clinical Conditions: HPV testing requested. Please correlate with HPV results (see microbiology report, or call [phone]) and refer to clinical guidelines for additional management ([email or web address]). SPECIMEN DESCRIPTION: A: THIN PREP (CERVICAL/VAGINAL) THIN PREP PROCESS CELLULAR ENHANCEMENT ICD: F: A; RT IMAGE 22757 SNOMED CODES: A; [id number] In cases where a pathologist has signed out the report, the service has been rendered in part by a resident. The signing pathologist has performed and is responsible for the reported pathologic evaluation. us Meena Hicks SPLICER OPERATOR LAB PATHOLOGY ORDERABLES F inal Result SUNQUEST from Last 3 Months or Most Recently Relevant to Health Maintenance Insurance [facility] Care Teams Bartenders Relationship Specialty Start Date End Date Kavon Deleon MD [address] [place] [address] PCP - General 08/29/20
== END 2024-12-04 23:59 | disposition home or self-care (01) ==
LOC: RAD 09:59
PROVIDERS: PCP Internal Medicine Adolescent Medicine; Visit Provider Internal Medicine Adolescent Medicine
DX: N85.4 Malposition of uterus (principal); N83.02 Follicular cyst of left ovary; N83.01 Follicular cyst of right ovary; R93.89 Abnormal findings on diagnostic imaging of other specified body structures; R10.31 Right lower quadrant pain; Z98.890 Other specified postprocedural states
CPT/HCPCS: 76830

== ENCOUNTER 2024-12-27 13:49 | Outpatient (CLI) | payer BC, OTHER, SELFPAY ==
--- NOTE | 2024-12-27 13:52 | XR_ITS ---
FINAL REPORT CLINICAL HISTORY: LEFT ELBOW PAIN hx of left elbow getting cleaned out feels like something is floating around FINDINGS: AP, oblique, and lateral views of the left elbow were obtained. There is no prior exam for comparison. There is no acute fracture or dislocation. There is degenerative joint disease. There is no joint effusion or other soft tissue abnormality. IMPRESSION: No acute osseous abnormality of the left elbow. Authenticated and ERN
== END 2024-12-27 23:59 | disposition home or self-care (01) ==
LOC: RAD 13:50
PROVIDERS: PCP Internal Medicine Adolescent Medicine; Visit Provider Internal Medicine Adolescent Medicine
DX: M05.79 Rheumatoid arthritis with rheumatoid factor of multiple sites without organ or systems involvement (principal); M25.522 Pain in left elbow; M24.022 Loose body in left elbow
CPT/HCPCS: 73080

== ENCOUNTER 2025-02-12 13:31 | Outpatient (CLI) | payer BC, OTHER, SELFPAY ==
--- NOTE | 2025-02-12 13:33 | XR_ITS ---
FINAL REPORT CLINICAL HISTORY: left hip pain FINDINGS: LEFT HIP Three views were obtained. There is no fracture or dislocation. The joint spaces appear normal. No soft tissue abnormality is identified. IMPRESSION: No acute process. Reviewed, Interpreted and Dictated by Suleman Larios MD Transcribed by Rhonda Dan Authenticated and [facility]
--- OUTSIDE RECORDS SUMMARY | 2025-02-12 14:09 | XMS_ITS | Clinical Summary ---
Author Organization [facility] Address [address] [place] [address] Care Team Providers Care Water Trainer Name Role Phone Kavon Deleon MD Primary Care Provider + [phone] Allergies Active Allergy Reactions Criticality Noted Date Comments Estrogens Other (See Comments) 11/11/2020 Complicated migraines Medications meloxicam (MOBIC) 15 MG tablet TAKE ONE TABLET BY MOUTH EVERY DAY NEEDED --TAKE WITH FOOD-- 1 Active spironolactone (ALDACTONE) 50 MG tablet Take 1 tablet by mouth Daily. 1 Active magnesium oxide (MAGOX) 400 (241.3 Mg) MG tablet tablet Take 1 tablet by mouth Daily. Active fexofenadine (GUERO) 180 MG tablet Take 1 tablet by mouth Daily. Active Abatacept (Orencia ClickJect) 125 MG/ML solution auto-injector Inject 1 mL under the skin into the appropriate area as directed Every 7 (Seven) Days. 1 Active pantoprazole (PROTONIX) 40 MG EC tablet Take 1 tablet by mouth Daily. 1 Active folic acid (FOLVITE) 1 MG tablet Take 1 tablet by mouth Daily. 2 Active promethazine (PHENERGAN) 25 MG tablet TAKE ONE TABLET BY MOUTH EVERY 6 HOURS MAY CAUSE DROWSINESS 2 Active ondansetron (ZOFRAN) 4 MG tablet Take 1 tablet by mouth Every 8 (Eight) Hours As Needed. 2 Active gabapentin (Neurontin) 300 MG capsuleIndicati ons:Intractable chronic migraine without aura and without status migrainosus Take 1 capsule by mouth As Needed (Pain) for up to 30 days. 30 capsule 1 2 Active methotrexate 2.5 MG tablet Take 6 tablets by mouth 1 (One) Time Per Week. 2 Active valACYclovir (VALTREX) 500 MG tablet 1 tablet Daily As Needed. 3 Active Zavegepant HCl 10 MG/ACT solution into the nostril(s) as directed by provider As Needed. Active nadolol (CORGARD) 20 MG tablet Take 1 tablet by mouth Daily. Active baclofen (LIORESAL) 20 MG tablet TAKE ONE TABLET BY MOUTH EVERY DAY NEEDED MAY CAUSE DROWSINESS 5 Active polycarbophil 625 MG tablet tablet Take 1 tablet by mouth Daily. Active fluconazole (DIFLUCAN) 150 MG tablet Take 1 tablet by mouth 1 (One) Time Per Week. 5 Active tretinoin (RETIN-A) 0.05 % cream APPLY TOPICALLY TO THE AFFECTED AREA(S) EVERY DAY AT BEDTIME 5 Active pregabalin (Lyrica) 50 MG capsule Take 1 capsule by mouth every night at bedtime for 30 days. 30 capsule 3 5 Active SUMAtriptan (IMITREX) 100 MG tablet TAKE 1 TABLET BY MOUTH AT ONSET OF MIGRAINE. MAY REPEAT ONCE AFTER 2 HOURS IF NEEDED (MAX OF 2 PER DAY) 10 tablet 5 5 Active galcanezumab-gn lm (Emgality) 120 MG/ML auto-injector pen Inject 1 mL under the skin into the appropriate area as directed Every 30 (Thirty) Days. 3 mL 3 5 Active Ubrelvy 100 MG tablet Take 1 tablet by mouth Daily As Needed (For migraine. May repeat after 2 hours if needed. Max 200 mg per 24 hours.). 16 tablet 11 01/18/2025 8:11 AM EDT 5 Active Ubrelvy 100 MG tablet Take 1 tablet by mouth As Needed (migraine). 10 tablet 2 3 025 Discontin ued(Reord er) Active Problems Problem Noted Date Diagnosed Date Intractable chronic migraine without aura and without status migrainosus 10/12/2022 Immunizations Immunization Administration Dates Next Due 31-influenza [...] lar dementia Heart disease Paternal Grandfather [place] Stroke Paternal Grandfather [place] Breast cancer Sister Relation Name Status Comments Father Maternal Grandfather Paternal Grandfather Hardy Law Sister Social History Tobacco Use Types Packs/Day [...] Description 04/30/2025 3:15 PM EST Office Visit [facility] [address] [address] [place] [address] Otoniel Clarke MD [address] [address] [place] [address] Health Maintenance Due Date Last Done Comments Annual Gynecologic Pelvic and Breast Exam 1980 PAP SMEAR 2002 ANNUAL PHYSICAL 11/11/2020 HEPATITIS C SCREENING 11/11/2020 INFLUENZA VACCINE 11/16/2024 02/02/2024, , 01/22/2022, Additional history exists MAMMOGRAM 02/13/2026 02/14/2024, 01/17, 01/14/2023, Additional history exists TDAP/TD VACCINES (3 - Td or Tdap) 12/04/2031 12/03/2021, 11/22/2006 Pneumococcal Vaccine 0-49 Aged Out 02/04/2017 No longer eligible based on patient's age to complete this topic Goals Goal Patient Goal Type Associated Problems Recent Progress Patient-Stated? Author Specialty Pharmacy General Goal General On track( 025 2:03 PM EDT) No Rosalba Harper, PharmD Note: On Average, Reduce: Frequency of migraines to 10 per month. Symptom severity by 50% within 1 hour of taking acute therapy. Duration of migraines to 2 hours. Baseline Values/Notes on Enrollment Frequency: 20 MMD Symptom Severity: 8 out of 10 Duration: 4 hours or more Date of Reassessment Notes on Progress Toward Above Goals MM/DD/YY Insurance [place] [id number] [facility] Care Teams Water Trainer Relationship Specialty Start Date End Date Kavon Deleon MD [address] [place] [address] [place] [address] [place] [id number] PCP - General Adolescent Medicine 07/22/20
--- OUTSIDE RECORDS SUMMARY | 2025-02-12 14:09 | XMS_ITS | Encounter Summary ---
Author Organization [facility] Address [address] [place] [address] Care Team Providers Care Petroleum Transport Driver Name Role Phone Kavon Deleon MD Primary Care Provider [phone] Encounter Details Date Type Department Care Team (Late st Contact Info) Description 09/07/2023 Orders Only External Location [address] [place] [phone] Provider, External Social History Tobacco Use Types [...] Care Team (Late st Contact Info) Description 03/01/2025 7:15 AM EST Appointment [facility] [place] [address] [address] [place] [address] 03/01/2025 8:20 AM EST Office Visit [facility] [address] [place] [address] Kylee Fontana, BUSINESS INFORMATION MANAGER [address] [place] [address] 03/19/2025 2:30 PM EST Office Visit [facility] [address] [place] [address] Krissy Carnes MD [address] [place] [address] documented as of this encounter Procedures Procedure [...] documented as of this encounter Care Teams Petroleum Transport Driver Relationship Specialty Start Date End Date Kavon Deleon MD [address] [place] [id number] PCP - General 08/29/20 documented as of this encounter
--- OUTSIDE RECORDS SUMMARY | 2025-02-12 14:09 | XMS_ITS | Encounter Summary ---
Author Organization [facility] Address [address] [place] [address] Care Team Providers Care Lead Radiation Therapist Name Role Phone Kavon Deleon MD Primary Care Provider [phone] Encounter Details Date Type Department Care Team (Late Contact Info) Description 02/17/2024 Orders Only External Location [address] [place] [phone] Kavon Deleon MD [address] [place] [address] Social History Tobacco Use Types Packs/Day Years [...] Department Care Team (Late Contact Info) Description 03/01/2025 7:15 AM EST Appointment [facility] [address] [place] [address] 03/01/2025 8:20 AM EST Office Visit [facility] [address] [place] [address] Kylee Fontana, MARLEE [address] [place] [address] 03/19/2025 2:30 PM EST Office Visit [facility] [address] [place] [address] Krissy Carnes MD [address] [place] [address] documented as of this encounter [...] documented as of this encounter Care Teams Lead Radiation Therapist Relationship Specialty Start Date End Date Kavno Deleon MD [address] [place] [id number] PCP - General 08/29/20 documented as of this encounter
--- OUTSIDE RECORDS SUMMARY | 2025-02-12 14:09 | XMS_ITS ---
Author Organization [facility] Address [address] [place] [address] Care Team Providers Care Meat Boner Name Role Phone Kavon Deleon MD Primary Care Provider [phone] Chronic Migraine Status:Enrolled (Active) Start date:11/28/2024 Enrollment date:01/17/2025 Enrollment reason:Converted fill to Current support & services provided:Clinical Assessment, Refill Coordination , Benefits Investigation, [facility] Dispensing Linked medications:Ubrogepant (Active) Linked problems:Intractable chronic migraine without aura and without status migrainosus (Active) Case Team Name Relationship Phone Otoniel Clarke MD Consulting Physician Continued Care and Services Coordination
--- OUTSIDE RECORDS SUMMARY | 2025-02-12 14:09 | XMS_ITS ---
Author Organization [facility] Address [address] [place] [address] Care Team Providers Care Film Color Tester Name Role Phone Kavon Deleon MD Primary Care Provider [phone] Chronic Migraine - External Program Status:Enrolled (Active) [...]
--- OUTSIDE RECORDS SUMMARY | 2025-02-12 14:09 | XMS_ITS | Clinical Summary ---
Author Organization [facility] Address [address] 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 Knee pain 01/08/2015 Impingement syndrome, shoulder, left 06/25/2014 Migraine with aura and witho ut status migrainosus, not intractable 12/04/2012 Gastro-esophageal reflux disease without esophag itis 07/26/2012 Resolved Problems Problem Noted Date Diagnosed Date Resolved Date 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 01/06/2025 Immunizations Immunization Administration Dates Next Due Hep [...] Info) Description 03/01/2025 7:15 AM EST Appointment [facility] [address] [place] [address] 03/01/2025 8:20 AM EST Office Visit [facility] [address] [place] [address] Kylee Fontana, STICKER MACHINE OPERATOR [address] [place] [address] 03/19/2025 2:30 PM EST Office Visit [facility] [address] [place] [address] Krissy Carnes MD [address] [address] Health Maintenance Due Date Last Done Comments [...] 05/28/2021 05/28/2016, 05/19, 10/14/2011, Additional history exists SPC-XCRAC-97 Vaccine ( season) 2024 12/24/2020, 05/23/2020, 04/21/2020 [facility]-Depression Screening 08/21/2025 08/21/2024, [...] to complete this topic [facility]-Influenza Vaccine Completed 01/18/2025 , 02/02/2024, 01/18/2023, Additional history exists [facility]-HIB Vaccines Aged Out No longer e ligible based on patient's age to complete this topic [facility]-IPV Vaccines Aged Out No longer e ligible based on patient's age to complete this topic [facility]-Rotavirus Vaccines Aged Out No lo nger eligible based on patient's age to complete this topic Medical Devices Implanted Type Area Forming Press Operator Device Identifier Shelf Expiration Date Model / Serial / Lot [employer] Silicone Mcp Finger Implanted:Qty: 1 on 01/26/2023 by Krissy Carnes MD at [facility] Left: Fingers [employer] 05/18/2024 [id number] / / [id number] Description:NONFILE Procedures Procedure Name Priority Date/Time Associated Diagnosis Comments CYTO DATA CONVERSION Routine 05/28/2016 12:00 AM EST from Last 3 Months or Most Recently Relevant to Health Maintenance Results * Cytology (05/28/2016 12:00 AM EST) 05/28/2016 05/31/2016 10: 03 AM EST Narrative SUNQUEST - 06/03/2016 3:52 PM EST [facility] MR #: [id number] [facility] JONO CARDOSO [place], [place] [address] 1980 (Age: 35) FW Collect Date: 05/28/2016 00:00 Receipt Date: 05/31/2016 10:03 Page 1 DEPARTMENT OF PATHOLOGY AND LABORATORY MEDICINE CYTOPATHOLOGY REPORT Email: [email or web address] [phone] ATTENDING MD/Practitioner: Maty [place] Service: [facility] Location: [facility] Reported: 06/03/2016 15:52 Collected: 05/28/2016 00:00 INTERPRETATION A. THIN PREP (CERVICAL/VAGINAL): NEGATIVE FOR INTRAEPITHELIAL LESION OR MALIGNANCY. SATISFACTORY FOR EVALUATION; ENDOCERVICAL/ TRANSFORMATION ZONE COMPONENT PRESENT. Slide scanned and imaged by [employer] ThinPrep Imaging System with manual review of [...] results is suggested (please call Microbiology at [phone] for results). CLINICAL INFORMATION: Menstrual History: Cyclic Date of Last Menstrual Period: 05/07/2016 Other Clinical Conditions: HPV testing requested. Please correlate with HPV results (see microbiology report, or call [phone]) and refer to clinical guidelines for additional management ([email or web address]). SPECIMEN DESCRIPTION: A: THIN PREP (CERVICAL/VAGINAL) THIN PREP PROCESS CELLULAR ENHANCEMENT ICD: F: A; RT IMAGE [id number] SNOMED CODES: A; [id number] [id number] In cases where a pathologist has signed out the report, the service has been rendered in part by a resident. The signing pathologist has performed and is responsible for the reported pathologic evaluation. us Meena Scott Kurt STICKER MACHINE OPERATOR LAB PATHOLOGY ORDERABLES F inal Result SUNQUEST from Last 3 Months or Most Recently Relevant to Health Maintenance Insurance [facility] Care Teams Stringed Instrument Tuner Relationship Specialty Start Date End Date Kavon Deleon MD [address] [place] [address] PCP - General 08/29/20
== END 2025-02-12 23:59 | disposition home or self-care (01) ==
LOC: RAD 13:32
PROVIDERS: PCP Internal Medicine Adolescent Medicine; Visit Provider Physician Assistant
DX: M25.552 Pain in left hip (principal)
CPT/HCPCS: 73502

== ENCOUNTER 2025-02-19 09:33 | Outpatient (CLI) | payer BC, OTHER, SELFPAY ==
--- NOTE | 2025-02-19 09:30 | IR_ITS ---
FINAL REPORT CLINICAL HISTORY: left hip pain possible tear 60.12 dap 0.11 fluoro time FINDINGS: FLUROSCOPY GUIDED LEFT HIP ARTHROGRAM HISTORY: Chronic left hip pain, previous labral tear with repair, juvenile onset rheumatoid arthritis. PHYSICIAN DRUM CARRIER: Abbey Wade PA-C ATTENDING PHYSICIAN: Dr. Alegria PROCEDURE: Informed consent was obtained from the patient. Timeout procedure was performed prior to beginning. Fluoroscopy was utilized to localize the left hip joint space. Skin was marked appropriately. The patient was prepped and draped in the usual sterile fashion over the left hip. Skin was anesthetized with 1% lidocaine. Access to the joint space was obtained using a 3-1/2 inch spinal needle. A small amount of Isovue contrast was injected to confirm needle placement. This was confirmed. Subsequently, approximately 20 mL of dilute gadolinium were injected into the joint space. The patient tolerated the procedure well and left the department in good condition. Fluoroscopy time: 0.11 minutes Radiation dose: DAP 60.12 uGym2 IMPRESSON: Technically successful fluoroscopy-guided left hip arthrogram for MRI. Please see MRI report. Reviewed, Interpreted and Dictated by Cynthia Alegria MD Transcribed by Abbey Wade PA-C Authenticated and [facility]
--- NOTE | 2025-02-19 10:30 | MR_ITS ---
FINAL REPORT CLINICAL HISTORY: left hip pain and instability hx of labrum repair FINDINGS: Multiplanar and multisequence imaging of the left hip were obtained following the intra-articular administration of dilute gadolinium contrast. Bone marrow signal intensity is preserved. There is no acute fracture, contusion or pathologic marrow replacement. There is mild degenerative disease of the left hip. There is no evidence of AVN. There is subtle irregularity of the superior anterior labrum, favor postoperative. No convincing labral tear is identified. Signal intensity within the muscular structure is within normal limits. Remaining soft tissues are unremarkable. IMPRESSION: 1. No acute osseous abnormality. Mild degenerative joint disease. 2. Irregularity of the superior anterior labrum without linear contrast filled defect, favor postoperative change. Reviewed, Interpreted and Dictated by Cynthia Alegria MD Transcribed by Aleshia Faustin Authenticated and [facility]
[2025-02-19] MEDS: SODIUM CHLORIDE 0.9% 10ML SYR (RAD ONLY) 10 ML IV ×2 (10:45)
[2025-02-19] MEDS: IOPAMIDOL-300 (61%) 100ML VIAL 15 ML IV (10:45)
[2025-02-19] MEDS: GADOTERIDOL INJ 10ML SYRINGE IV (10:45)
== END 2025-02-19 23:59 | disposition home or self-care (01) ==
LOC: RAD 09:33
PROVIDERS: PCP Internal Medicine Adolescent Medicine; Visit Provider Physician Assistant
DX: M16.12 Unilateral primary osteoarthritis, left hip (principal); R93.6 Abnormal findings on diagnostic imaging of limbs
CPT/HCPCS: 73525; A9576; Q9967